=== PATIENT | male | born 1935 | race Caucasian/White ===

== ENCOUNTER → 2018-01-11 12:21 | Outpatient (CLI) | payer MEDICARE, SELFPAY ==
[2018-01-11 12:47] VITALS: PULSE 104; PULSE 72; PULSE 86; PULSE 87; PULSE 90; PULSE 93; PULSE 97; PULSE 98; O2SAT 90; O2SAT 91; O2SAT 92; O2SAT 93; O2SAT 94; O2SAT 95
--- NOTE | 2018-01-12 06:43 | WT_ITS ---
PSN 6 Minute Walk Test - 6 Minute Walk Test 6 Minute Walk Test: 6 Minute Walk Test PSN:6-Minute Walk Test Start: 01/11/18 12: 46 Freq: Status: Active Protocol: [id number] Document 01/11/18 12:47 HG (Rec: 01/11/18 12:57 HG [id number]) 6 Minute Walk Test Date Performed 01/11/18 Time Performed 12:30 Height 5 ft 10 in Weight: 90.718 kg Weight in Pounds 200.[address]: Eliu Britton Assistive device used: None Pre-test Oxygen Delivery Method Room Air Pulse Ox (%) 95 Pulse Rate (60-100 beats/min) 72 Dyspnea Sim Scale (0-10) 1 Exertion Sim Scale (6-20) 6 1st minute Oxygen Delivery Method Room Air Pulse Ox (%) 93 Pulse Rate (60-100 beats/min) 86 2nd minute Oxygen Delivery Method Room Air Pulse Ox (%) 90 Pulse Rate (60-100 beats/min) 90 3rd minute Oxygen Delivery Method Room Air Pulse Ox (%) 91 Pulse Rate (60-100 beats/min) 93 4th minute Oxygen Delivery Method Room Air Pulse Ox (%) 92 Pulse Rate (60-100 beats/min) 98 5th minute Oxygen Delivery Method Room Air Pulse Ox (%) 91 Pulse Rate (60-100 beats/min) 104 H 6th minute Oxygen Delivery Method Room Air Pulse Ox (%) 93 Pulse Rate (60-100 beats/min) 97 Post-test Oxygen Delivery Method Room Air Pulse Ox (%) 94 Pulse Rate (60-100 beats/min) 87 Dyspnea Sim Scale (0-10) 1 Exertion Sim Scale (6-20) 6 Full Laps Walked 17 Partial Lap, Number of Tiles Walked 16 Total Distance Walked (ft) 1019 - Interpretation Interpretation: The patient was able to ambulate 1019 feet over the course of 6 minutes on room air with no assistive devices or breaks. The patient did have significant desaturation from a baseline saturation of 95% to as low as 90% with ambulation. No significant tachycardia was noted. These findings are consistent with a respiratory limitation exercise tolerance. - Recommendations Recommendations: No supplemental oxygen is indicated at this time. However, patient should be followed closely given level of desaturation.
== END ==
PROVIDERS: Family Provider Family Medicine; PCP Family Medicine; Visit Provider Family Medicine
DX: R06.2 Wheezing (principal)
CPT/HCPCS: 94618

== ENCOUNTER → 2018-01-16 13:14 | Outpatient (CLI) | payer MEDICARE, SELFPAY ==
--- NOTE | 2018-01-17 11:09 | PFT ---
INTRODUCTION: The patient is an 82-year-old male currently under the care of Dr. Eliu Britton the presents for pulmonary function testing secondary to a diagnosis of wheezing. Respiratory therapy reports good patient effort reports no other concerns. Bronchodilators were used during testing. INTERPRETATION: Forced expiration spirometry demonstrates the presence of a mild large airways obstructive ventilatory impairment. There was no significant response to aerosolized bronchodilators, based upon strict ATS criteria. Spirograms are of good quality and do not plateau indicating slow emptying of the lungs. Body plethysmography was performed and reveals an elevated RV to 135% of predicted, indicative of underlying air trapping. Diffusing capacity by single breath CO is mildly reduced at 72% of predicted. IMPRESSION: These pulmonary function studies demonstrate the presence of an irreversible mild large airways obstructive ventilatory defect with associated air trapping and symmetric reduction in diffusing capacity. There are no previous pulmonary function studies available for comparison.
== END ==
PROVIDERS: Family Provider Family Medicine; PCP Family Medicine; Visit Provider Family Medicine
DX: R06.2 Wheezing (principal)
CPT/HCPCS: 94060; 94726; 94729

== ENCOUNTER → 2018-02-05 09:28 | Outpatient (CLI) | payer MEDICARE, SELFPAY ==
--- NOTE | 2018-02-05 09:33 | RAD_ITS ---
STUDY: X-RAY CHEST REASON FOR EXAM: Male, 82 years old. Left-sided rales. TECHNIQUE: PA and lateral views of the chest. COMPARISON: Comparison is made with prior examination dated July 15, 2017. FINDINGS: Stable increased linear markings at the left lung base suggestive of left basilar scarring. Blunting of the left costophrenic angle. Normal size heart. Normal mediastinum and izzy. Normal visualized pulmonary arteries. Normal visualized aortic arch and descending thoracic aorta. There is demineralization of the osseous structures. Almost complete loss of height of a lower dorsal vertebrae. Normal visualized ribs, clavicles, and shoulders. There is no demonstrated abnormality of the visualized soft tissue structures of the upper abdomen. RAD/Chest PA and Lateral IMPRESSION: Stable increased markings at the left lung base suggestive of left basilar scarring. Electronically Signed: Calvin Garcia MD at 14:48 EDT Tel [phone], Service support ,
[2018-02-05 12:32] LABS: International Normalized Ratio 2.7; Prothrombin Time (Protime)PT. 28.7 SECONDS (11.7-14.9)
== END ==
PROVIDERS: Family Provider Family Medicine; PCP Family Medicine; Visit Provider Family Medicine
DX: I82.409 Acute embolism and thrombosis of unspecified deep veins of unspecified lower extremity (principal); R09.89 Other specified symptoms and signs involving the circulatory and respiratory systems
CPT/HCPCS: 36415; 71046; 85610

== ENCOUNTER → 2018-04-06 08:36 | Outpatient (CLI) | payer MEDICARE, SELFPAY ==
--- NOTE | 2018-04-06 09:20 | RAD_ITS ---
STUDY: AIR-CONTRAST UPPER GI SERIES. REASON FOR EXAM: Male, 82 years old. Chronic left-sided abdominal pain. FLUOROSCOPY TIME (if supplied): (1:10) minutes/seconds TECHNIQUE: A geotechnical engineer film was obtained. The gas patterns aren't remarkable. Degenerative changes are seen throughout the spine. COMPARISON: None. FINDINGS: There is no evidence of esophageal obstruction. There is evidence of a small sliding hiatal hernia with gastroesophageal reflux. The stomach and duodenum are unremarkable. RAD/Upper GI/w Small Bowel IMPRESSION: Small sliding nail hernia with gastroesophageal reflux. Electronically Signed: Calvin Garcia MD at 8:02 EDT Tel [phone], Service support ,
== END ==
PROVIDERS: Family Provider Family Medicine; PCP Family Medicine; Visit Provider Family Medicine
DX: K44.9 Diaphragmatic hernia without obstruction or gangrene (principal); K21.9 Gastro-esophageal reflux disease without esophagitis
CPT/HCPCS: 74249

== ENCOUNTER → 2018-09-11 09:06 | Outpatient (CLI) | payer MEDICARE, SELFPAY | PROVIDERS: Family Provider Family Medicine; PCP Family Medicine; Referring Provider Nurse Practitioner Adult Health; Visit Provider Nurse Practitioner Adult Health | DX: R30.0 Dysuria (principal) | CPT/HCPCS: 36415; 87086 ==

== ENCOUNTER → 2018-12-21 12:27 | Outpatient (CLI) | payer MEDICARE, SELFPAY | PROVIDERS: Family Provider Family Medicine; PCP Family Medicine; Referring Provider Family Medicine; Visit Provider Family Medicine | DX: N30.90 Cystitis, unspecified without hematuria (principal) | CPT/HCPCS: 87086 ==

== ENCOUNTER → 2019-01-28 | Outpatient (CLI) | payer MEDICARE, SELFPAY | END | disposition home or self-care (01) | LOC: MFPLAB 09:40 | PROVIDERS: Family Provider Family Medicine; PCP Family Medicine; Visit Provider Family Medicine | DX: R30.0 Dysuria (principal) | CPT/HCPCS: 87086 ==

== ENCOUNTER → 2019-03-22 15:48 | Outpatient (CLI) | payer MEDICARE, SELFPAY | PROVIDERS: Family Provider Family Medicine; PCP Family Medicine; Referring Provider Family Medicine; Visit Provider Family Medicine | DX: R30.0 Dysuria (principal) | CPT/HCPCS: 87086 ==

== ENCOUNTER → 2019-09-09 10:19 | Outpatient (CLI) | payer MEDICARE, SELFPAY ==
[2019-09-09 12:47] LABS: Absolute Lymphocyte Count 1.67 X10^3/uL (0.83-4.51); Absolute Neutrophil Count 7.3 X10^3/uL (2.0-7.7); Basophil# 0.09 X10^3/uL; Basophil% 0.9 % (0-1); Eosinophils% 0.9 % (0-5); Hematocrit 33.8 % (40-54); Hemoglobin 10.9 g/dL (13.0-16.5); Lymphocyte # 1.67 X10^3/ul (4.0); Lymphocyte % 15.8 % (19-41); Mean Corp Hgb Conc 32.2 g/dL (32-36); Mean Corpuscular Volume 89.9 fL (80-94); Mean Platelet Vol. 9.6 fl (6.2-12.0); Monocyte# 1.35 X10^3/uL; Monocyte% 12.8 % (0-10); NRBC Flagged by Analyzer 0 % (0-5); Neutrophil # 7.29 X10^3/uL (2.7-7.7); Neutrophil % 68.9 % (47-70); Platelet Count 328 K/mm3 (150-450); RBC Distribution Width CV 13.1 % (11.6-14.6); RBC Distribution Width SD 43.2 fl (35.1-43.9); Red Blood Count 3.76 M/mm3 (4.6-6.2); White Blood Count 10.6 K/mm3 (4.4-11.0)
[2019-09-09 13:12] LABS: ALB/GLOB Ratio 0.7 RATIO (0.9-2.4); AST(SGOT) 30 U/L (15-37); Alanine Aminotransfer ALT/SGPT 31 U/L (16-61); Albumin, Serum 3.2 g/dL (3.2-5.0); Alkaline Phosphatase 59 U/L (45-117); Anion Gap 10 (5-15); BUN 21 mg/dL (7-18); BUN/Creat Ratio 13.9 RATIO (10-20); Calcium,Total 9.4 mg/dL (8.5-10.1); Chloride 101 mmol/L (98-107); Creatinine, Serum 1.51 mg/dL (0.70-1.30); EST Glomerular Filtration Rate 47 mL/min (>60); Est Glom Filt Rate - Afr Amer 57 mL/min (>60); Ferritin 735 ng/mL (26-388); Globulin 4.9 g/dL (2.2-4.2); Glucose 100 mg/dL (74-106); Iron 61 ug/dL (65-175); Magnesium 1.8 mg/dL (1.6-2.6); Potassium 4.2 mmol/L (3.5-5.1); Protein, Total 8.1 g/dL (6.4-8.2); Sodium Level 133 mmol/L (136-145); Thyroid Stim Hormone (TSH) 4.01 uIU/mL (0.358-3.74)
== END ==
PROVIDERS: Family Provider Family Medicine; PCP Family Medicine; Visit Provider Family Medicine
DX: I10 Essential (primary) hypertension (principal); Z86.711 Personal history of pulmonary embolism
CPT/HCPCS: 36415; 80053; 82728; 83540; 83735; 84443; 85025

== ENCOUNTER → 2019-09-21 08:52 | Outpatient (CLI) | payer MEDICARE, SELFPAY ==
--- NOTE | 2019-09-21 09:09 | US_ITS ---
STUDY: ABDOMINAL ULTRASOUND - RIGHT UPPER QUADRANT REASON FOR VISIT: Male, 83 years old elevated ferritin. TECHNIQUE: Ultrasound evaluation of the right upper quadrant was performed with real-time and static phipps-scale imaging. TECHNICAL QUALITY: Limited. Examination limited by bowel gas. COMPARISON: None. FINDINGS: Liver: The liver measures 14.7 cm. There is normal echogenicity of the liver. The bile ducts are within normal limits. There is hepatic color flow. The direction of portal flow is hepatopetal. There is no demonstrated mass lesion. Gallbladder: Normal distended gallbladder. The gallbladder wall measures 2.0 mm. There is a negative sonographic Solorzano's sign. There is no pericholecystic fluid. There are no gallstones. Common Bile Duct (C.B.D.): The common bile duct measures 4.0 mm. Pancreas: There is suboptimal visualization of the pancreas. A round anechoic structure seen at the level of the pancreatic head measuring 1.3 x 0.9 x 1.1 cm, stable when compared to previous exam 07/21/2017 CT and t2o. Right Kidney: Normal size of the right kidney. The right kidney measures 10.3 x 4.5 x 5.3 cm. Normal renal cortex. The right cortex measures 1.1 cm. At the level of the There is no right hydronephrosis. US/Abdomen Limited IMPRESSION: No gallstones or signs of acute cholecystitis. Suboptimally seen pancreas, with a small cyst measuring 1.3 cm at the level of the head, stable in the interval. Remainder of the right upper quadrant ultrasound unremarkable. Electronically Signed: Sunita Hancock MD at 4:35 EST , Service support ,
== END ==
PROVIDERS: Family Provider Family Medicine; PCP Family Medicine; Referring Provider Family Medicine; Visit Provider Family Medicine
DX: R79.89 Other specified abnormal findings of blood chemistry (principal)
CPT/HCPCS: 76705

== ENCOUNTER → 2019-09-27 12:27 | Outpatient (CLI) | payer MEDICARE, SELFPAY ==
[2019-09-27 13:50] LABS: Hematocrit 33.7 % (40-54); Hemoglobin 11.1 g/dL (13.0-16.5); Mean Corp Hgb Conc 32.9 g/dL (32-36); Mean Corpuscular Hgb 29.2 pg (27.0-32.0); Mean Corpuscular Volume 88.7 fL (80-94); Mean Platelet Vol. 9.4 fl (6.2-12.0); Platelet Count 351 K/mm3 (150-450); RBC Distribution Width CV 13.3 % (11.6-14.6); RBC Distribution Width SD 43.2 fl (35.1-43.9); White Blood Count 13.3 K/mm3 (4.4-11.0)
[2019-09-27 14:00] LABS: Erythrocyte Sedimentation Rate 104 mm/hr (0-20)
[2019-09-27 14:38] LABS: ALB/GLOB Ratio 0.7 RATIO (0.9-2.4); AST(SGOT) 33 U/L (15-37); Alanine Aminotransfer ALT/SGPT 37 U/L (16-61); Albumin, Serum 3.2 g/dL (3.2-5.0); Alkaline Phosphatase 58 U/L (45-117); Anion Gap 6 (5-15); BUN 19 mg/dL (7-18); BUN/Creat Ratio 12.6 RATIO (10-20); Calcium,Total 9.4 mg/dL (8.5-10.1); Chloride 100 mmol/L (98-107); Creatinine, Serum 1.51 mg/dL (0.70-1.30); EST Glomerular Filtration Rate 47 mL/min (>60); Est Glom Filt Rate - Afr Amer 57 mL/min (>60); Globulin 4.9 g/dL (2.2-4.2); Glucose 185 mg/dL (74-106); Potassium 3.8 mmol/L (3.5-5.1); Protein, Total 8.1 g/dL (6.4-8.2); Sodium Level 134 mmol/L (136-145); Thyroid Stim Hormone (TSH) 2.42 uIU/mL (0.358-3.74)
[2019-09-30 17:43] LABS: ANTINUCLEAR ANTIBODIES DIRECT Positive (Negative)
== END ==
PROVIDERS: Family Provider Family Medicine; PCP Family Medicine; Referring Provider Family Medicine; Visit Provider Family Medicine
DX: I82.409 Acute embolism and thrombosis of unspecified deep veins of unspecified lower extremity (principal); R60.9 Edema, unspecified; M62.81 Muscle weakness (generalized)
CPT/HCPCS: 36415; 80053; 84443; 85027; 85652; 86038; 86140

== ENCOUNTER → 2019-09-30 11:17 | Outpatient (CLI) | payer MEDICARE, SELFPAY ==
[2019-09-30 12:23] LABS: Erythrocyte Sedimentation Rate 90 mm/hr (0-20)
[2019-09-30 13:03] LABS: CRP, High Sensitivity Cardiac 9.44 mg/L
== END ==
PROVIDERS: Family Provider Family Medicine; PCP Family Medicine; Referring Provider Family Medicine; Visit Provider Family Medicine
DX: M62.81 Muscle weakness (generalized) (principal)
CPT/HCPCS: 36415; 85652; 86141

== ENCOUNTER 2019-10-10 20:43 | Inpatient (IN) | payer MEDICARE, SELFPAY ==
[2019-10-10 20:45] VITALS: BP 163/64; PULSE 73; RESP 18; TEMP 36.7; O2SAT 98; BMI 29.2
--- NOTE | 2019-10-10 21:31 | CT_ITS ---
STUDY: CT ABDOMEN AND PELVIS WITHOUT CONTRAST REASON FOR EXAM: Male, 83 years old. Abdominal pain RADIATION DOSAGE (If Supplied By Facility): CTDIvol = ( 18.20 ) mGy, DLP = ( 1206.33 ) mGycm TECHNIQUE: Transaxial images were obtained from the dome of the diaphragm to the symphysis pubis without oral contrast, and without intravenous contrast. Sagittal and coronal images were reconstructed. Individualized dose optimization techniques were used for this CT. COMPARISON: None. FINDINGS: The visualized lung bases are unremarkable. The visualized portions of the heart are within normal limits. Normal liver. Normal gallbladder and extrahepatic biliary system. Normal spleen. Relatively stable 1.6 cm probable cystic nodule at the head of the pancreas and an 8 mm cystic nodule posterior to the pancreatic body. Normal bilateral adrenal glands. Normal right kidney. 1 cm cyst in the left kidney. Normal visualized stomach. Mildly distended proximal small intestinal loops with air-fluid levels. An obstructive pattern cannot be excluded. Diverticulosis of the colon. The appendix is visualized and appears normal. Calcified abdominal aorta. Normal inferior vena cava. Normal retroperitoneum. Normal urinary bladder. 1.6 cm nodular density at the right inguinal canal, similar to previous study. Trace pelvic fluid. Normal abdominal wall. Degenerative vertebral changes. Severe old compression of T8 vertebral body. 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 CT/Abdomen/Pelvis W IV Cont ONLY IMPRESSION: Stable pancreatic cystic nodules. Left renal cyst. Colonic diverticulosis. Mildly distended proximal small bowel loops with air-fluid levels. An obstructive pattern cannot be excluded. Trace pelvic fluid. Electronically Signed: Nikko Askew DO at 23:41 EST Tel [phone], Service support ,
--- NOTE | 2019-10-10 21:31 | EKG12_ITS ---
Test Reason : ABD PAIN Blood Pressure : / mmHG Vent. Rate : 074 BPM Atrial Rate : 074 BPM P-R Int : 176 ms QRS Dur : 088 ms QT Int : 382 ms P-R-T Axes : 025 -21 042 degrees QTc Int : 424 ms Sinus rhythm with Premature atrial complexes Minimal voltage criteria for LVH, may be normal variant Borderline ECG Confirmed by KAMILLE ELLIS, TANK ([id number]), assistant film editor MIKEY SANCHEZ ([id number]) on 10/14/2019 11:35:35 AM Referred By: JAMI Confirmed By:TANK SIMENTAL MD
--- NOTE | 2019-10-10 21:42 | ED.DCSUM_ITS ---
- ER Visit Summary Date of Service: 10/10/19 Chief Complaint: Abdominal pain History of Present Illness: The patient is a 83 M presenting with abdominal pain. This started around 7 PM. Patient complains of upper abdominal pain. He denies nausea, vomiting, diarrhea. Denies constipation. Denies blood in the stool. Denies fever. Denies urinary complaints. He states he ate [employer] this afternoon and is unsure if this is related. Physical Examination: Vitals are stable. Patient is afebrile. Alert no acute distress. HEENT exam is unremarkable. Neck is supple. Lungs are clear and equal bilaterally. Heart is regular rate and rhythm. Abdomen is soft right upper quadrant and epigastric tenderness with no guarding or rebound Extremities are unremarkable. Skin is warm and dry. No focal neurologic deficit. Remainder of exam is unremarkable. Emergency Department Course and Treatment: Patient was given morphine, Zofran IV. CBC shows white count 19.3, hemoglobin 11.1. Chemistries show sodium 135, glucose 124, BUN 22. Liver lipase are normal. INR 1.9. Urinalysis shows 0 white blood cells, 5-10 red blood cells. EKG is sinus rhythm rate of 74 with no acute ischemic changes. CT abdomen pelvis shows stable pancreatic cystic nodul es. Left renal cyst. Colonic diverticulosis. Mildly distended proximal small bowel loops with air-fluid levels. An obstructive pattern cannot be excluded. Trace pelvic fluid. Discussed with Dr. Seaman. She recommends 1 unit of FFP and NG tube. This will be placed. Discussed with the hospitalist for admission. Disposition: Admission Impression: Small bowel obstruction This note was generated with [employer] publishing dictation software. It may contain incorrect words, spelling, and punctuation that were not noted in review of the chart prior to signing ED Disposition - Plan for ED Patient:
[2019-10-10] MEDS: Morphine 4 MG/ML Syringe IV (22:21)
[2019-10-10] MEDS: Ondansetron 4 MG/2 ML Vial IV (22:21)
[2019-10-10 22:34] LABS: Absolute Lymphocyte Count 1.23 X10^3/uL (0.83-4.51); Absolute Neutrophil Count 15.8 X10^3/uL (2.0-7.7); Basophil# 0.04 X10^3/uL; Basophil% 0.2 % (0-1); Eosinophil# 0.01 X10^3/uL; Eosinophils% 0.1 % (0-5); Hematocrit 33.6 % (40-54); Hemoglobin 11.1 g/dL (13.0-16.5); Lymphocyte # 1.23 X10^3/ul (4.0); Lymphocyte % 6.4 % (19-41); Mean Corpuscular Hgb 28.8 pg (27.0-32.0); Mean Corpuscular Volume 87.3 fL (80-94); Mean Platelet Vol. 9.7 fl (6.2-12.0); Monocyte# 2.03 X10^3/uL; Monocyte% 10.5 % (0-10); NRBC Flagged by Analyzer 0 % (0-5); POSITIVE DIFFERENTIAL YES; Platelet Count 259 K/mm3 (150-450); RBC Distribution Width CV 14.7 % (11.6-14.6); RBC Distribution Width SD 46.8 fl (35.1-43.9); Red Blood Count 3.85 M/mm3 (4.6-6.2); White Blood Count 19.3 K/mm3 (4.4-11.0)
[2019-10-10 22:42] LABS: International Normalized Ratio 1.8; Prothrombin Time (Protime)PT. 21.2 SECONDS (11.7-14.9)
[2019-10-10 22:47] LABS: Differential Indicated SCAN CRITERIA MET
[2019-10-10 22:54] VITALS: BP 146/69; PULSE 76; RESP 18; O2SAT 100
[2019-10-10 22:55] LABS: ALB/GLOB Ratio 0.8 RATIO (0.9-2.4); AST(SGOT) 34 U/L (15-37); Alanine Aminotransfer ALT/SGPT 38 U/L (16-61); Albumin, Serum 3.4 g/dL (3.2-5.0); Alkaline Phosphatase 49 U/L (45-117); Anion Gap 8 (5-15); Anisocytosis RARE; BUN 22 mg/dL (7-18); BUN/Creat Ratio 17.5 RATIO (10-20); Calcium,Total 8.8 mg/dL (8.5-10.1); Chloride 98 mmol/L (98-107); Creatinine, Serum 1.26 mg/dL (0.70-1.30); EST Glomerular Filtration Rate 58 mL/min (>60); Est Glom Filt Rate - Afr Amer 71 mL/min (>60); Estimated Creatinine Clearance 47.48 ml/min; Globulin 4.1 g/dL (2.2-4.2); Glucose 124 mg/dL (74-106); Lactic Acid 1.5 mmol/L (0.4-1.9); Lipase 189 U/L (73-393); Platelet Estimate ADEQUATE (ADEQ); Potassium 4.5 mmol/L (3.5-5.1); Protein, Total 7.5 g/dL (6.4-8.2); Red Cell Morphology N CHROM NORMAL (NORM C&C); Sodium Level 135 mmol/L (136-145)
[2019-10-10 23:54] LABS: Bacteria 0 SEEN /hpf (None Seen); Mucous, Urine 0 SEEN /hpf (<or=2+); Squamous Epithelial Cells - UA 0 SEEN /hpf (0-5); White Blood Cells 0 SEEN /hpf (0-5)
[2019-10-10 23:55] LABS: Color, Urine Yellow (Yellow); Glucose, Dipstick Normal (Normal); Ketone-Dipstick Negative (Negative); Leukocyte Esterase-Dipstick Negative /ul (Negative); Nitrite-Dipstick Negative (Negative); Occult Blood-Urine 25 /ul (Negative); Protein-Dipstick Negative (Negative); Urine Bilirubin Dipstick Negative (Negative); Urine Clarity Clear (Clear); Urine Urobilinogen Normal (Normal)
[2019-10-11] VITALS (17 sets, daily range): BP systolic 135–168; BP diastolic 56–81; PULSE 71–87; RESP 16–18; TEMP 36.6–37.2; O2SAT 92–98; BMI 27.8
[2019-10-11 00:07] LABS: Red Blood Cells-Urine 5-10 SEEN /hpf (0-5)
--- NOTE | 2019-10-11 00:44 | RAD_ITS ---
STUDY: X-RAY - ABDOMEN/PELVIS REASON FOR EXAM: Male, 83 years old. Documentation of nasogastric tube placement. TECHNIQUE: Single AP view of the abdomen / pelvis. COMPARISON: CT of the abdomen and pelvis dated October 10, 2019. FINDINGS: There are bilateral pleural effusions. There is bilateral basilar dependent atelectasis. The enteric tube tip is in the left upper quadrant probably in the stomach. There is dilated small bowel with maximum transverse dimension of approximately 3.4 cm. There is no demonstrated free abdominal air. There is no obvious organomegaly or mass. Normal soft tissue structures. The bones appear osteopenic. RAD/Abdomen Single View (Portable) IMPRESSION: 1. Appropriate positioning of enteric tube. 2. Persistent dilatation of small bowel. Electronically Signed: Haylee Remy MD at 3:00 EST , Service support ,
--- NOTE | 2019-10-11 00:46 | HP.PCM_ITS ---
Problem List (1) SBO (small bowel obstruction) Status: Acute History of Present Illness Date of Admission: 10/11/19 Chief Complaint: abdominal pain The patient is a 83 year old M with a significant history of CAD status post stent (2007); DVT and PE; and hypertension who presented to emergency department with abdominal pain that started few hours before presentation. On the day of presentation at around 2PM patient ate food from [facility]. About 4 to 5 hours thereafter he began to have worsening abdominal pain. His pain has been progressively worsening. He describes his pain as sharp with intensity 10 out of 10. His pain improves with burping. He denies any aggravating factor. Associated with his symptoms is nausea and dry heaving. His bowels moved about 2 times prior to presentation; on the same day of presentation. Past Medical History Medical History: Medical History (Last Updated 10/11/19 @ 03:31 by Jose Temple MD) Hypertension I10 Allergies naproxen [From Naprosyn] Allergy (Verified 10/10/19 20:46) Other Home Medications: Ambulatory Orders Medication Instructions Recorded Amlodipine Besylate [Norvasc] 10 mg PO DAILY 07/15/17 Ascorbic Acid [Vitamin C] 1,000 mg PO DAILY 07/15/17 Cholecalciferol (Vitamin D3) 1,000 unit PO DAILY 07/15/17 [Vitamin D3] Fish Oil 1,000 mg Capsule 1,000 mg PO DAILY 07/15/17 Flaxseed Oil 1,000 mg PO DAILY 07/15/17 Furosemide [Lasix] 20 mg PO DAILY 07/15/17 Garlic 1,000 mg PO DAILY 07/15/17 Lovastatin [Mevacor] 40 mg PO QHS 07/15/17 Metoprolol Tartrate 25 mg PO BID 07/15/17 Spironolactone 25 mg PO DAILY 07/15/17 Tamsulosin HCl [Flomax] 0.4 mg PO DAILY 07/15/17 Vit B12/Levomefolate/Vit B6/B2 1 each PO DAILY 07/15/17 [l-Methyl-Mc Tablet] Warfarin [Coumadin ([facility])] 3 mg PO MOWEFR 07/15/17 Prednisone 10 mg PO DAILY 10/10/19 Rosuvastatin Calcium 5 mg PO DAILY 10/10/19 Warfarin Sodium [Coumadin] 2 mg PO SUTUTHSA 10/11/19 Surgical History: herniorrhaphy, - - Coronary stent Lives: Alone Smoking Status: Former smoker Tobacco Use: Non-smoker Alcohol: None Review of Systems Constitutional: Denies: Chills, Fever, Weight Change HEENT: Denies: Head Aches, Sinus Congestion, Sinus Drainage Cardiovascular: Denies: Chest Pain, Palpitations Respiratory: Denies: Cough, Shortness of breath at rest, Sputum production Gastrointestinal: Reports: Abdominal Pain, Nausea. Denies: Vomiting Genitourinary: Denies: Dysuria Musculoskeletal: Denies: Joint Pain, Joint Tenderness Skin: Denies: Rash, Wounds Neurological: Denies: Numbness, Tingling, Focal weakness Psychiatric: Denies: Anxiety, Depression, Homicidal Ideations, Suicidal Ideations Hematologic/ Lymphatic: Denies: Easy Bruising, Easy Bleeding VTE Information - Inpt Only VTE Present on Admission: No VTE Mechan Device Prophylaxis: SCD's VTE Pharm Prophylaxis ordered?: No Patient Problems: Active and Suspected Problems (Last Updated 10/11/19 @ 03:31 by Jose Temple MD) SBO (small bowel obstruction) (Acute) - Physical Exam Vitals/I&O's: Vital Signs Temp Pulse Resp BP Pulse Ox 98.1 F 87 16 141/66 H 92 10/10/19 20:45 10/11/19 00:10 10/11/19 00:10 10/11/19 00:10 10/11/19 00:10 Oxygen Flow Rate (L/min) 2 Oxygen Delivery Method Room Air Weight: 92.3 kg Body Mass Index (BMI) 29.2 Intake and Output for Last 24 Hours 10/09/19 10/10/19 10/11/19 23:59 23:59 23:59 Intake Total 500 / 500 Balance 500 / 500 General: Alert, Oriented x3, Cooperative HEENT: Atraumatic, PERRLA, EOMI, Normocephalic Neck: Supple, No JVD, Negative Carotid Bruits Lungs: Clear to auscultation, Normal air movement Cardiovascular: Regular rate, No murmurs Abdomen: Bowel Sounds Present, Soft, Tender - Mild Extremities: No edema, Capillary Refill Less than 3 Seconds Skin: No rashes, No breakdown Musculoskeletal: No Tenderness to Palpation of Joints or Extremities Neurological: Cranial nerves II-XII grossly intact Psych/Mental Status: Normal Affect, Appropriate Laboratory Results 10/10/19 22:15: WBC 19.3 H, RBC 3.85 L, Hgb 11.1 L, Hct 33.6 L, MCV 87.3, MCH 28.8, MCHC 33.0, RDW Std Deviation 46.8 H, RDW Coeff of Ryanne 14.7 H, Plt Count 259, MPV 9.7, Immature Gran % (Auto) 0.800, Neut % (Auto) 82.0 H, Lymph % (Auto) 6.4 L, Will[place] % (Auto) 10.5 H, Eos % (Auto) 0.1, Baso % (Auto) 0.2, Absolute Neuts (auto) 15.8 H, Absolute Lymphs (auto) 1.23, Nucleated RBC % 0, Differential Comment SEE COMMENT, Diff Path Review February, Platelet Estimate ADEQUATE, RBC Morphology N CHROM, Anisocytosis RARE 10/10/19 22:15: PT 21.2 H, INR 1.8 10/10/19 22:15: Sodium 135 L, Potassium 4.5, Chloride 98, Carbon Dioxide 29.0, Anion Gap 8, BUN 22 H, Creatinine 1.26, Estim Creat Clear Calc 47.48, Est GFR (MDRD) Af Amer 71, Est GFR (MDRD) Non-Af 58 L, BUN/Creatinine Ratio 17.5, Glucose 124 H, Calcium 8.8, Total Bilirubin 0.40, AST 34, ALT 38, Alkaline Phosphatase 49, Troponin I < 0.015, Total Protein 7.5, Albumin 3.4, Globulin 4.1, Albumin/Globulin Ratio 0.8 L, Lipase 189 10/10/19 22:15: Lactic Acid 1.5 10/10/19 23:50: Urine Color Yellow, Urine Clarity Clear, Urine pH 7.0, Ur Specific Emery 1.010, Urine Protein Negative, Urine Glucose (UA) Normal, Urine Ketones Negative, Urine Occult Blood 25 H, Urine Nitrite Negative, Urine Bilirubin Negative, Urine Urobilinogen Normal, Ur Leukocyte Esterase Negative, Urine RBC 5-10 SEEN, Urine WBC 0 SEEN, Ur Squamous Epith Cells 0 SEEN, Urine Bacteria 0 SEEN, Urine Mucus 0 SEEN Assessment/Plan All Active Problems (Last Updated 10/11/19 @ 03:31 by Jose Temple MD) SBO (small bowel obstruction) (Acute) The patient is a 83 year old M with a significant history of CAD status post stent (2007); DVT and PE; and hypertension who presented to emergency department with abdominal pain with radiographic evidence of probable small bowel obstruction. Probable small bowel obstruction Abdomen pelvis CT with mild distended proximal small bowel loops with air-fluid levels. An obstructive pattern could not be excluded. Emergency Department doctor discussed the case with general surgeon. Because INR was 1.8; General Surgeon recommended the patient be given FFP which was ordered from the emergency department. Will keep patient n.p.o. Gentle IV fluid with lactated Ringer's. NG was ordered per general surgery recommendation. We will consult general surgery inpatient. Repeat INR in a.m. HTN On presentation his blood pressure was not within goal. Will hold home p.o. 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 Coumadin held secondary to probable surgery. FFP ordered from the ED. Resume anticoagulation as soon as practicable. 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 All p.o. medications held at this time. Consider resuming prednisone when appropriate. Leukocytosis On presentation patient had neutrophilic leukocytosis with white count of 19.3. Likely due to steroids. Trend CBC. Insomnia Patient takes Ambien 5 mg nightly to sleep. In setting of n.p.o. status with probable small bowel obstruction ativan IV x1 was ordered. DVT prophylaxis SCD Code Visit Inpatient E&M: 68880 Init Hosp L3
[2019-10-11] MEDS: Lidocaine 4% 5 ML Ampul 2 ML INHALATION (01:16)
[2019-10-11] MEDS: LORazepam 2 MG/ML Syringe IV (03:39)
[2019-10-11] MEDS: Enalaprilat 1.25 MG/ML Vial 0.625 MG IV ×2 (05:28→11:25)
[2019-10-11] MEDS: Lactated Ringers 1,000 ML 50 ML IV (05:28)
[2019-10-11 06:58] LABS: Absolute Lymphocyte Count 1.03 X10^3/uL (0.83-4.51); Absolute Neutrophil Count 10.9 X10^3/uL (2.0-7.7); Basophil# 0.04 X10^3/uL; Basophil% 0.3 % (0-1); Eosinophil# 0.07 X10^3/uL; Eosinophils% 0.5 % (0-5); Hematocrit 29.8 % (40-54); Hemoglobin 9.8 g/dL (13.0-16.5); Lymphocyte # 1.03 X10^3/ul (4.0); Lymphocyte % 7.5 % (19-41); Mean Corp Hgb Conc 32.9 g/dL (32-36); Mean Corpuscular Hgb 29.4 pg (27.0-32.0); Mean Corpuscular Volume 89.5 fL (80-94); Mean Platelet Vol. 9.3 fl (6.2-12.0); Monocyte# 1.65 X10^3/uL; NRBC Flagged by Analyzer 0 % (0-5); Neutrophil # 10.86 X10^3/uL (2.7-7.7); POSITIVE DIFFERENTIAL YES; Platelet Count 212 K/mm3 (150-450); RBC Distribution Width CV 14.9 % (11.6-14.6); RBC Distribution Width SD 47.8 fl (35.1-43.9); Red Blood Count 3.33 M/mm3 (4.6-6.2); White Blood Count 13.8 K/mm3 (4.4-11.0)
--- NOTE | 2019-10-11 07:00 | PCM.CONS.GEN ---
Reason for Consult Date of Consultation: 10/11/19 History of Present Illness: The patient is a 83 year old M presented to the ER due to abdominal pain. Patient states that he had [employer] about 2 PM and by 7 PM had had diffuse abdominal pain and abdominal bloating. Patient states he did have some nausea with that and dry heaves. Patient had 2 bowel movements around 7 PM as well which were normal and flatus earlier in the day. Currently denies any flatus. 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 Patient's CT abdomen pelvis showed a possible small bowel obstruction. Patient had NG placed unsure how much she was put out in the ER minimal however 9 about 50 cc. Patient states is abdomen is smaller and denies any abdominal pain. Patient states he had something like this about 10 years ago and did have to go the hospital did not have to have an NG or surgery. Patient states he had a colonoscopy about 3 years ago which was negative by Dr. Ragsdale in [place]. Patient's white blood count was 19, normal lactate, UA negative. He just started prednisone 10 mg p.o. daily for pain in his bones/joints per PCP 2 weeks ago Past Medical History Medical History: Medical History (Last Updated 10/11/19 @ 03:31 by Jose Temple MD) Hypertension I10 Allergies naproxen [From Naprosyn] Allergy (Verified 10/10/19 20:46) Other Home Medications: Ambulatory Orders Medication Instructions Recorded Amlodipine Besylate [Norvasc] 10 mg PO DAILY 07/15/17 Ascorbic Acid [Vitamin C] 1,000 mg PO DAILY 07/15/17 Cholecalciferol (Vitamin D3) 1,000 unit PO DAILY 07/15/17 [Vitamin D3] Fish Oil 1,000 mg Capsule 1,000 mg PO DAILY 07/15/17 Flaxseed Oil 1,000 mg PO DAILY 07/15/17 Furosemide [Lasix] 20 mg PO DAILY 07/15/17 Garlic 1,000 mg PO DAILY 07/15/17 Lovastatin [Mevacor] 40 mg PO QHS 07/15/17 Metoprolol Tartrate 25 mg PO BID 07/15/17 Spironolactone 25 mg PO DAILY 07/15/17 Tamsulosin HCl [Flomax] 0.4 mg PO DAILY 07/15/17 Vit B12/Levomefolate/Vit B6/B2 1 each PO DAILY 07/15/17 [l-Methyl-Mc Tablet] Warfarin [Coumadin (PBKC)] 3 mg PO MOWEFR 07/15/17 Prednisone 10 mg PO DAILY 10/10/19 Rosuvastatin Calcium 5 mg PO DAILY 10/10/19 Warfarin Sodium [Coumadin] 2 mg PO SUTUTHSA 10/11/19 Surgical History: herniorrhaphy, - - Coronary stent Lives: Alone Smoking Status: Former smoker Tobacco Use: Non-smoker Alcohol: None - *Family History Maternal History Items: No pertinent history Review of Systems Constitutional: Reports: Anorexia HEENT: Denies: Difficulty Swallowing Cardiovascular: Denies: Chest Pain Respiratory: Denies: Shortness of Breath Gastrointestinal: Denies: Abdominal Pain, Nausea, Vomiting Genitourinary: Denies: Dysuria Neurological: Denies: Numbness, Tingling Psychiatric: Denies: Anxiety, Depression Hematologic/ Lymphatic: Reports: Easy Bruising. Denies: Easy Bleeding Patient Problems: Active and Suspected Problems (Last Updated 10/11/19 @ 03:31 by Jose Temple MD) SBO (small bowel obstruction) (Acute) - Physical Exam Vitals/I&O's: Vital Signs Temp Pulse Resp BP Pulse Ox 98.2 F 73 16 159/63 H 94 10/11/19 05:31 10/11/19 06:04 10/11/19 05:31 10/11/19 05:31 10/11/19 05:31 Oxygen Flow Rate (L/min) 2 Oxygen Delivery Method Nasal Cannula Weight: 193 lb 12.581 oz Body Mass Index (BMI) 27.8 Intake and Output for Last 24 Hours 10/09/19 10/10/19 10/11/19 23:59 23:59 23:59 Intake Total 500 / 500 200 / 200 Balance 500 / 500 200 / 200 General: Alert, Oriented x3, Cooperative, No apparent distress HEENT: Atraumatic, - - NG in place Lungs: Normal air movement Cardiovascular: Regular rate Abdomen: Soft, Distended - Mild, Tender - Mild epigastric, no peritoneal signs Extremities: Edema - Greater on the right Neurological: Cranial nerves II-XII grossly intact Psych/Mental Status: Normal Affect Laboratory Results 10/10/19 22:15: WBC 19.3 H, RBC 3.85 L, Hgb 11.1 L, Hct 33.6 L, MCV 87.3, MCH 28.8, MCHC 33.0, RDW Std Deviation 46.8 H, RDW Coeff of Ryanne 14.7 H, Plt Count 259, MPV 9.7, Immature Gran % (Auto) 0.800, Neut % (Auto) 82.0 H, Lymph % (Auto) 6.4 L, [place] % (Auto) 10.5 H, Eos % (Auto) 0.1, Baso % (Auto) 0.2, Absolute Neuts (auto) 15.8 H, Absolute Lymphs (auto) 1.23, Nucleated RBC % 0, Differential Comment SEE COMMENT, Diff Path Review February, Platelet Estimate ADEQUATE, RBC Morphology N CHROM, Anisocytosis RARE 10/10/19 22:15: PT 21.2 H, INR 1.8 10/10/19 22:15: Sodium 135 L, Potassium 4.5, Chloride 98, Carbon Dioxide 29.0, Anion Gap 8, BUN 22 H, Creatinine 1.26, Estim Creat Clear Calc 47.48, Est GFR (MDRD) Af Amer 71, Est GFR (MDRD) Non-Af 58 L, BUN/Creatinine Ratio 17.5, Glucose 124 H, Calcium 8.8, Total Bilirubin 0.40, AST 34, ALT 38, Alkaline Phosphatase 49, Troponin I < 0.015, Total Protein 7.5, Albumin 3.4, Globulin 4.1, Albumin/Globulin Ratio 0.8 L, Lipase 189 10/10/19 22:15: Lactic Acid 1.5 10/10/19 23:50: Urine Color Yellow, Urine Clarity Clear, Urine pH 7.0, Ur Specific [place] 1.010, Urine Protein Negative, Urine Glucose (UA) Normal, Urine Ketones Negative, Urine Occult Blood 25 H, Urine Nitrite Negative, Urine Bilirubin Negative, Urine Urobilinogen Normal, Ur Leukocyte Esterase Negative, Urine RBC 5-10 SEEN, Urine WBC 0 SEEN, Ur Squamous Epith Cells 0 SEEN, Urine Bacteria 0 SEEN, Urine Mucus 0 SEEN 10/11/19 01:10: Blood Type A POSITIVE, Antibody Screen NEGATIVE 10/11/19 06:38: WBC Pending, RBC Pending, Hgb Pending, Hct Pending, MCV Pending, MCH Pending, MCHC Pending, RDW Std Deviation Pending, RDW Coeff of Ryanne Pending, Plt Count Pending, Neut % (Auto) Pending, Absolute Neuts (auto) Pending 10/11/19 06:38: PT Pending, INR Pending 10/11/19 06:38: Sodium Pending, Potassium Pending, Chloride Pending, Carbon Dioxide Pending, Anion Gap Pending, BUN Pending, Creatinine Pending, Est GFR (MDRD) Af Amer Pending, Est GFR (MDRD) Non-Af Pending, BUN/Creatinine Ratio Pending, Glucose Pending, Calcium Pending Current Medications Enalaprilat (Vasotec) 0.625 mg IV Q6 AZAM Last Admin: 10/11/19 05:28 Dose: 0.625 mg Documented by: Glucagon () 1 mg IM .X1 PRN PRN Reason: Hypoglycemia Lactated Ringer's () 1,000 mls @ 50 mls/hr IV .Q20H AZAM Stop: 10/12/19 18:06 Last Admin: 10/11/19 05:28 Dose: 50 mls/hr Documented by: Sodium Chloride () 250 mls @ 15 mls/hr IV .[id number] PRN PRN Reason: Saline Flush Sodium Chloride () 250 mls @ 15 mls/hr IV .[id number] PRN PRN Reason: Additional IVPB Infusion Dextrose (Dextrose 10%-Water) 250 mls @ 999 mls/hr IV .Q16M PRN; Protocol PRN Reason: HYPOGLYCEMIA Morphine Sulfate () 2 mg IV Q3H PRN PRN PRN Reason: Pain Score 5-10/10 Ondansetron HCl (Zofran) 4 mg IV Q8H PRN PRN PRN Reason: NAUSEA/VOMITING Sodium Chloride () 10 - 40 ml IV UD PRN PRN Reason: SALINE FLUSH Assessment/Plan All Active Problems (Last Updated 10/11/19 @ 03:31 by Jose Temple MD) SBO (small bowel obstruction) (Acute) 83-year-old male with possible small bowel obstruction, on Coumadin INR is 1.8 1. Patient's KUB for placement of NG did show a little more gas in the colon than previously seen on CT. Currently on about 50 cc in the canister overnight unsure how much was gotten out in the ER. Patient states abdomen has gone down in size but denies any flatus still. We will check an additional KUB this morning and likely do a small bowel follow-through. 2. Leukocytosis patient a white blood cell count of 19 on admit unsure source as patient's abdominal pain was improved, UA was normal. Patient has been on prednisone 10 mg p.o. daily for last couple weeks due to pain in his joints/bones per his PCP.-Per patient's daughter. Labs currently pending?white blood cell count down to 13 without any antibiotics we will continue to monitor. Patient's INR is 1.8 and was given 1 unit of FFP case he would need surgery, 1.7 Waleska Ambrocio M.D. Pager: [phone] [facility] [address] [place] [address], [facility], [address] [place] [address] Office: [phone] Code Visit Inpatient E&M: 95662 Init Hosp L1
--- NOTE | 2019-10-11 07:02 | RAD_ITS ---
STUDY: X-RAY - ABDOMEN/PELVIS REASON FOR EXAM: Male, 83 years old patient with small bowel obstruction. TECHNIQUE: Two AP supine views of the abdomen and pelvis. COMPARISON: CT of the abdomen and pelvis dated October 10, 2019. FINDINGS: Cardiac monitoring leads are present. Multiple surgical clips are visible within the soft tissues of the right lower quadrant. There is dilated small bowel with maximum transverse dimension of approximately 4.4 cm. There is no demonstrated free abdominal air. There is no obvious organomegaly, mass or dilated bowel. Contrast is visible in the urinary bladder probably related to recent enhanced CT. Normal soft tissue structures. Normal visualized osseous structures. RAD/Abdomen Single View (Portable) IMPRESSION: Residual radiographic evidence for dilated small bowel. Electronically Signed: Haylee Remy MD at 8:48 EST , Service support ,
[2019-10-11 07:09] LABS: Differential Indicated SCAN CRITERIA MET
[2019-10-11 07:16] LABS: Anion Gap 5 (5-15); BUN 18 mg/dL (7-18); BUN/Creat Ratio 16.4 RATIO (10-20); Calcium,Total 8.4 mg/dL (8.5-10.1); Chloride 102 mmol/L (98-107); EST Glomerular Filtration Rate 68 mL/min (>60); Est Glom Filt Rate - Afr Amer 82 mL/min (>60); Estimated Creatinine Clearance 54.38 ml/min; Glucose 115 mg/dL (74-106); Potassium 4.1 mmol/L (3.5-5.1); Sodium Level 138 mmol/L (136-145)
[2019-10-11 07:36] LABS: International Normalized Ratio 1.7; Prothrombin Time (Protime)PT. 19.6 SECONDS (11.7-14.9)
[2019-10-11] MEDS: 0.9% Saline Lock 10 ML Syringe IV (09:01)
--- NOTE | 2019-10-11 09:15 | RAD_ITS ---
STUDY: SMALL BOWEL SERIES. REASON FOR EXAM: Male, 83 years old. SMALL BOWEL OBSTRUCTION VS. ILEUS FLUOROSCOPY TIME (if supplied): ( 40 seconds ) minutes/seconds TECHNIQUE: Gastrografin was placed into the indwelling nasogastric tube. A small bowel follow-through examination was then obtained. COMPARISON: None. FINDINGS: A health actuary film was obtained. There is evidence of small bowel dilatation. A small amount of gas is seen in the colon. There is evidence of dilated small bowel loops with delay in transit. At 90 minutes, Gastrografin is seen within the right hemicolon. Findings are suggestive of either a partial small bowel obstruction versus ileus pattern. RAD/Small Bowel Series Only IMPRESSION: Delayed emptying of the small bowel loops into the colon suggestive of either small bowel ileus versus incomplete small bowel obstruction. Electronically Signed: Calvin Garcia, at 12:16 EST , Service support ,
--- NOTE | 2019-10-11 11:38 | CASEMGMT ---
RN CM Assessment: Presentation: PREETOBONNIE Intro role of CM and purpose of RN CM assessment to patient and his daughter. Demographics, PCP and Pharmacy verified. Pt states he is independent and able to care for self. No assistance at home. Drives and plans to return home on dc. PCP: Dr. Eliu Britton Specialists: Dr. Devon Rosa Preferred Pharmacy: [facility] Insurance: [email or web address] Prescription Benefit: yes LNOK: Daughter, aKitlyn Hahn Living Arrangements: Pt lives indepedendently Transportation: drives or family can assist. DME: none per pt. HHC/SNF: none Patient DC goals: Home DC PLAN: Home on dc. RN CM let pt know to contact cm if concerns or dc needs arise. Jatinder MASSEYN RN ACM
[2019-10-11 14:10] LABS: Pathologist Review Reviewed
[2019-10-11 14:13] LABS: Pathologist Review Reviewed
--- NOTE | 2019-10-11 15:14 | PCM.HOSP.N ---
Hospitalist Note And examined briefly this afternoon, he states he has had a bowel movement since he has had his upper GI performed today. For now, patient will continue to have an NG tube, general surgery is participating in his care and will reevaluate the patient tomorrow.
--- NOTE | 2019-10-11 17:21 | PCM.PN.BLA ---
Progress Note Patient small bowel follow-through did show still some dilated small bowel but contrast was in the colon at 90 minutes. Patient also had a large bowel movement today and has also been passing gas. Will remove NG. Due to the dilated small bowel we will keep on sips and check a KUB in the morning if improved we will plan to advance diet. Dr. Ervin will be rounding tomorrow. STROKE Vital Signs/Narrative: Vital Signs Temp Pulse Resp BP Pulse Ox 10/11/19 14:45 97.8 F 80 18 135/65 H 94
[2019-10-11] MEDS: Metoprolol Tartrate 25 MG Tablet PO (21:58)
[2019-10-12] VITALS (8 sets, daily range): BP systolic 125–141; BP diastolic 55–72; PULSE 65–83; RESP 18–20; TEMP 36.6–37.5; O2SAT 91–94
[2019-10-12] MEDS: Lactated Ringers 1,000 ML 50 ML IV (03:10)
--- NOTE | 2019-10-12 05:10 | RAD_ITS ---
STUDY: X-RAY - ABDOMEN/PELVIS REASON FOR EXAM: Male, 83 years old patient presents for follow up of small bowel obstruction. TECHNIQUE: Two AP supine views of the abdomen and pelvis. COMPARISON: Radiographs of the abdomen dated October 11, 2019 and images from small bowel follow-through dated October 11, 2019. FINDINGS: Normal visualized lung bases. Enteric contrast is visible within the colon consistent with partial bowel obstruction. There are numerous diverticula visible within the distal descending colon and sigmoid colon. There is persistent dilatation of small bowel with maximum transverse dimension of approximately 3.6 cm. There is no obvious organomegaly or mass. Contrast is visible in the urinary bladder probably related to previous contrast administration. Normal soft tissue structures. The bones are osteopenic. There are degenerative changes of the thoracic and lumbar spine. RAD/Abdomen Single View (Portable) IMPRESSION: Enteric contrast is visible throughout the colon consistent with a partial small bowel obstruction. Electronically Signed: Haylee Remy MD at 7:49 EST , Service support ,
--- NOTE | 2019-10-12 05:47 | PN.SURG_ITS ---
Patient Problems: Active and Suspected Problems (Last Updated 10/11/19 @ 03:31 by Jose Temple MD) SBO (small bowel obstruction) (Acute) Subjective: Currently denies abdominal pain. He has been able to pass a small amount of flatus and has had a small stool. He denies nausea - Physical Exam Vitals/I&O's: Vital Signs Temp Pulse Resp BP Pulse Ox 98.6 F 78 20 H 125/72 H 94 10/12/19 05:00 10/12/19 05:00 10/12/19 05:00 10/12/19 05:00 10/12/19 05:00 Oxygen Flow Rate (L/min) 1 Oxygen Delivery Method Room Air Weight: 193 lb 12.581 oz Body Mass Index (BMI) 27.8 Intake and Output for Last 24 Hours 10/10/19 10/11/19 10/12/19 23:59 23:59 23:59 Intake Total 500 / 500 455 / 530 865.83 / 865.83 Output Total 1300 / 1300 Balance 500 / 500 -845 / -770 865.83 / 865.83 Abdomen: Bowel Sounds Present, Soft, Non Tender - Occasional tinkles, slightly distended, Laboratory Results 10/10/19 22:15: Diff Path Review Reviewed 10/11/19 06:38: WBC 13.8 H, RBC 3.33 L, Hgb 9.8 L, Hct 29.8 L, MCV 89.5, MCH 29.4, MCHC 32.9, RDW Std Deviation 47.8 H, RDW Coeff of Ryanne 14.9 H, Plt Count 212, MPV 9.3, Immature Gran % (Auto) 0.700, Neut % (Auto) 79.0 H, Lymph % (Auto) 7.5 L, [place] % (Auto) 12.0 H, Eos % (Auto) 0.5, Baso % (Auto) 0.3, Absolute Neuts (auto) 10.9 H, Absolute Lymphs (auto) 1.03, Nucleated RBC % 0, Differential Comment COMMENT, Diff Path Review Reviewed 10/11/19 06:38: PT 19.6 H, INR 1.7 10/11/19 06:38: Sodium 138, Potassium 4.1, Chloride 102, Carbon Dioxide 31.0, Anion Gap 5, BUN 18, Creatinine 1.10, Estim Creat Clear Calc 54.38, Est GFR (MDRD) Af Amer 82, Est GFR (MDRD) Non-Af 68, BUN/Creatinine Ratio 16.4, Glucose 115 H, Calcium 8.4 L Current Medications Furosemide (Lasix) 20 mg PO DAILY [facility] Glucagon () 1 mg IM .X1 PRN PRN Reason: Hypoglycemia Lactated Ringer's () 1,000 mls @ 50 mls/hr IV .Q20H [facility] Stop: 10/12/19 18:06 Last Admin: 10/12/19 03:10 Dose: 50 mls/hr Documented by: Sodium Chloride () 250 mls @ 15 mls/hr IV .[id number] PRN PRN Reason: Saline Flush Sodium Chloride () 250 mls @ 15 mls/hr IV .[id number] PRN PRN Reason: Additional IVPB Infusion Dextrose (Dextrose 10%-Water) 250 mls @ 999 mls/hr IV .Q16M PRN; Protocol PRN Reason: HYPOGLYCEMIA Pantoprazole Sodium 40 mg/ (Sodium Chloride) 110 mls @ 330 mls/hr IV Q24 [facility] Last Infusion: 10/11/19 09:01 Dose: Infused Documented by: Metoprolol Tartrate (Lopressor (Beta Don)) 25 mg PO BID [facility] Last Admin: 10/11/19 21:58 Dose: 25 mg Documented by: Morphine Sulfate () 2 mg IV Q3H PRN PRN PRN Reason: Pain Score 5-10/10 Ondansetron HCl (Zofran) 4 mg IV Q8H PRN PRN PRN Reason: NAUSEA/VOMITING Prednisone () 10 mg PO DAILY@0800 [facility] Sodium Chloride () 10 - 40 ml IV UD PRN PRN Reason: SALINE FLUSH Last Admin: 10/11/19 09:01 Dose: 10 ml Documented by: Spironolactone (Aldactone) 25 mg PO DAILY [facility] Tamsulosin HCl (Flomax) 0.4 mg PO DAILY [facility] Medical Necessity - Tobacco Use Smoking Status: Former smoker Tobacco Use: Non-smoker Assessment/Plan All Active Problems (Last Updated 10/11/19 @ 03:31 by Jose Temple MD) SBO (small bowel obstruction) (Acute) Will initiate a full liquid diet. Pending patient's progress I would concur with potential discharge later today.
[2019-10-12] MEDS: predniSONE 10 MG Tablet PO (08:14)
[2019-10-12] MEDS: Metoprolol Tartrate 25 MG Tablet PO ×2 (08:15→20:18)
[2019-10-12] MEDS: Spironolactone 25 MG Tablet PO (08:15)
[2019-10-12] MEDS: Furosemide 20 MG Tablet PO (08:15)
[2019-10-12] MEDS: Tamsulosin HCl 0.4 MG Capsule PO (08:15)
--- NOTE | 2019-10-12 12:11 | NURSING ---
PT STATES VERY SMALL LIQUID STOOLS THIS AM - NOT SEEN BY THIS NURSE. PT STATES MOSTLY GAS
--- NOTE | 2019-10-12 13:51 | PN_ITS ---
Patient Problems: Active and Suspected Problems (Last Updated 10/11/19 @ 03:31 by Jose Temple MD) SBO (small bowel obstruction) (Acute) Subjective: +Flatus today-lots and sm BM today. No nausea. Diet advanced by surgery to FLD and pt tolerated with ease. Distention is better. Vitals/I&O's: Vital Signs Temp Pulse Resp BP Pulse Ox 99.3 F H 83 18 130/61 H 91 10/12/19 08:07 10/12/19 08:15 10/12/19 08:07 10/12/19 08:15 10/12/19 11:10 Oxygen Flow Rate (L/min) 1 Oxygen Delivery Method Room Air Weight: 87.9 kg Body Mass Index (BMI) 27.8 Intake and Output for Last 24 Hours 10/10/19 10/11/19 10/12/19 23:59 23:59 23:59 Intake Total 500 / 500 455 / 530 1395.83 / 1395.83 Output Total 1300 / 1300 0 / 0 Balance 500 / 500 -845 / -770 1395.83 / 1395.83 General: Alert, Oriented x3, Cooperative, No apparent distress, Well developed, Well nourished, - - family at bedside, pt ambulating in room I with IV pole HEENT: Atraumatic, PERRLA, EOMI, Normocephalic, EAC Clear Oral: Moist Mucosa, No Gingival or Mucosal Lesions/ Ulcerations, - - dentures in place Neck: Supple, No JVD Lungs: Clear to auscultation, Normal air movement, No rhonchi, No wheeze, No rales Cardiovascular: Regular rate, Regular Rhythm, Normal S1, Normal S2, No murmurs, No Ectopic Activity, No rub noted, No Gallop Abdomen: Bowel Sounds Present, Soft, Non Tender, Passing Flatus, Distended - mild, No hernias noted, - Extremities: No clubbing, No cyanosis, Edema - trace B LE edema Skin: No rashes, - - skin changes c/w sun exposure Musculoskeletal: No Tenderness to Palpation of Joints or Extremities, No Muscle Wasting Lymphatic: No Cervical, Supraclavicular, or Inguinal Adenopathy Neurological: Cranial nerves II-XII grossly intact, Deep Tendon Reflexes 2+/4 and Symmetrical, Neuro grossly intact, Motor Exam 5/5 strength throughout, Gait narrow based and stable Psych/Mental Status: Appropriate, Alert and oriented to time, place, person, mood and affect Laboratory Results 10/10/19 22:15: Diff Path Review Reviewed 10/11/19 06:38: Diff Path Review Reviewed Current Medications Furosemide (Lasix) 20 mg PO DAILY [facility] Last Admin: 10/12/19 08:15 Dose: 20 mg Documented by: Glucagon () 1 mg IM .X1 PRN PRN Reason: Hypoglycemia Lactated Ringer's () 1,000 mls @ 50 mls/hr IV .Q20H [facility] Stop: 10/12/19 18:06 Last Admin: 10/12/19 03:10 Dose: 50 mls/hr Documented by: Sodium Chloride () 250 mls @ 15 mls/hr IV .[id number] PRN PRN Reason: Saline Flush Sodium Chloride () 250 mls @ 15 mls/hr IV .[id number] PRN PRN Reason: Additional IVPB Infusion Dextrose (Dextrose 10%-Water) 250 mls @ 999 mls/hr IV .Q16M PRN; Protocol PRN Reason: HYPOGLYCEMIA Pantoprazole Sodium 40 mg/ (Sodium Chloride) 110 mls @ 330 mls/hr IV Q24 [facility] Last Infusion: 10/12/19 10:49 Dose: Infused Documented by: Metoprolol Tartrate (Lopressor (Beta Don)) 25 mg PO BID [facility] Last Admin: 10/12/19 08:15 Dose: 25 mg Documented by: Morphine Sulfate () 2 mg IV Q3H PRN PRN PRN Reason: Pain Score 5-10/10 Ondansetron HCl (Zofran) 4 mg IV Q8H PRN PRN PRN Reason: NAUSEA/VOMITING Prednisone () 10 mg PO DAILY@0800 [facility] Last Admin: 10/12/19 08:14 Dose: 10 mg Documented by: Sodium Chloride () 10 - 40 ml IV UD PRN PRN Reason: SALINE FLUSH Last Admin: 10/11/19 09:01 Dose: 10 ml Documented by: Spironolactone (Aldactone) 25 mg PO DAILY [facility] Last Admin: 10/12/19 08:15 Dose: 25 mg Documented by: Tamsulosin HCl (Flomax) 0.4 mg PO DAILY [facility] Last Admin: 10/12/19 08:15 Dose: 0.4 mg Documented by: STROKE Vital Signs/Narrative: Vital Signs Pulse Ox 10/12/19 11:10 91 Medical Necessity - Tobacco Use Smoking Status: Former smoker Tobacco Use: Non-smoker Assessment/Plan All Active Problems (Last Updated 10/11/19 @ 03:31 by Jose Temple MD) SBO (small bowel obstruction) (Acute) SBO -resolving -advanced to FLD by general surgery today -no surgery needed -will advance to reg diet for evening meal and if tolerates plan to d/c tomorrow am -continue IV protonix for now and d/c tomorrow if stable Hyponatremia -resolved CKD stage 3 -creat is at baseline -UO good Myopathy -continue steroids HTN/HPL continue home meds H/O DVT and PE -restart coumadin since OR not required--> 3 mg today -INR was 1.7 today -repeat INR in am -will bridge with Lovenox since is treatment for PE/DVT -1.5 mg/kg daily (trend creatinine) Leukocytosis -trending down -repeat in am Insomnia -restart home Ambien dosing DVT prophylaxis -fully anticoagulated
--- NOTE | 2019-10-12 20:40 | NURSING ---
pt ambulating in [facility]
[2019-10-13] VITALS (7 sets, daily range): BP systolic 111–142; BP diastolic 47–75; PULSE 55–92; RESP 16–18; TEMP 36.6–37.3; O2SAT 91–97
[2019-10-13] MEDS: Morphine 2 MG/ML Syringe IV (00:04)
[2019-10-13] MEDS: Ondansetron 4 MG/2 ML Vial IV (00:11)
[2019-10-13] MEDS: 0.9% Saline Lock 10 ML Syringe IV (00:15)
--- NOTE | 2019-10-13 04:53 | NURSING ---
pt ambulating in [facility]. reports decreased bloating
[2019-10-13 06:46] LABS: Absolute Lymphocyte Count 1.63 X10^3/uL (0.83-4.51); Absolute Neutrophil Count 8.5 X10^3/uL (2.0-7.7); Basophil# 0.04 X10^3/uL; Basophil% 0.3 % (0-1); Eosinophil# 0.11 X10^3/uL; Eosinophils% 0.9 % (0-5); Hematocrit 29.1 % (40-54); Hemoglobin 9.2 g/dL (13.0-16.5); Lymphocyte # 1.63 X10^3/ul (4.0); Lymphocyte % 13.7 % (19-41); Mean Corp Hgb Conc 31.6 g/dL (32-36); Mean Corpuscular Volume 91.8 fL (80-94); Mean Platelet Vol. 10.5 fl (6.2-12.0); Monocyte# 1.49 X10^3/uL; Monocyte% 12.6 % (0-10); NRBC Flagged by Analyzer 0 % (0-5); Neutrophil # 8.51 X10^3/uL (2.7-7.7); Neutrophil % 71.8 % (47-70); Platelet Count 182 K/mm3 (150-450); RBC Distribution Width CV 15.2 % (11.6-14.6); RBC Distribution Width SD 50.1 fl (35.1-43.9); Red Blood Count 3.17 M/mm3 (4.6-6.2); White Blood Count 11.9 K/mm3 (4.4-11.0)
[2019-10-13 06:50] LABS: International Normalized Ratio 1.7; Prothrombin Time (Protime)PT. 19.6 SECONDS (11.7-14.9)
--- NOTE | 2019-10-13 08:42 | CT_ITS ---
STUDY: CT ABDOMEN AND PELVIS WITH CONTRAST REASON FOR EXAM: Male, 83 years old. POSSIBLE SBO, ABD PAIN, NAUSEA, GERD, HERNIA REPAIR, CAD WITH STENTS, ON COUMADIN RADIATION DOSAGE (If Supplied By Facility): CTDIvol = ( 15.97 ) mGy, DLP = ( 1163.14 ) mGycm TECHNIQUE: Transaxial images were obtained from the dome of the diaphragm to the symphysis pubis with oral contrast. 1OOML ISOVUE 300 was administered. Sagittal and coronal images were reconstructed. Individualized dose optimization techniques were used for this CT. COMPARISON: October 10, 2019. FINDINGS: There is lower lung atelectasis. There are coronary artery calcifications. Normal liver. Normal gallbladder and extrahepatic biliary system. Normal spleen. There is 1.6 cm cystic lesion of the pancreatic neck, series 2 image 43/128. There is 0.8 cm cystic lesion of the tail of the pancreas. Normal bilateral adrenal glands. Normal right kidney. Normal left kidney. Normal visualized stomach. There is mild distention of loops of small intestine. There are multiple colonic diverticula consistent with diverticulosis. The appendix is visualized and appears normal. There is diffuse atherosclerotic calcification of the abdominal aorta, without a demonstrated aneurysm. Normal inferior vena cava. Normal retroperitoneum. Normal urinary bladder. There are prostatic calcifications. There is mild free fluid in the pelvis. There is postoperative change of the right inguinal region. Degenerative change of the spine. T8 compression fracture is stable. CT/Abdomen/Pelvis WITH Contrast IMPRESSION: Small bowel distention with partial obstruction versus ileus. Colonic diverticulosis. Electronically Signed: Michael Adhikari MD at 11:52 EST , Service support ,
[2019-10-13] MEDS: Furosemide 20 MG Tablet PO (08:43)
[2019-10-13] MEDS: Tamsulosin HCl 0.4 MG Capsule PO (08:43)
[2019-10-13] MEDS: predniSONE 10 MG Tablet PO (08:43)
[2019-10-13] MEDS: Spironolactone 25 MG Tablet PO (08:44)
[2019-10-13] MEDS: Metoprolol Tartrate 25 MG Tablet PO ×2 (08:44→22:07)
[2019-10-13] MEDS: Enoxaparin 150 MG/ML Syringe 130 MG SC (08:46)
--- NOTE | 2019-10-13 08:48 | PN.SURG_ITS ---
Patient Problems: Active and Suspected Problems (Last Updated 10/11/19 @ 03:31 by Jose Temple MD) SBO (small bowel obstruction) (Acute) Subjective: Patient was feeling well all day yesterday tolerating a light diet. Apparently last night around midnight he developed low abdominal pain and did require a dosing of narcotics. Again currently it is denying any abdominal pain at this moment. He feels that he is slightly more distended. He is however still passing small amounts of stool and flatus. Leukocytosis continues to slowly improve - Physical Exam Vitals/I&O's: Vital Signs Temp Pulse Resp BP Pulse Ox 99.1 F 68 16 140/55 H 93 10/13/19 07:59 10/13/19 07:59 10/13/19 07:59 10/13/19 07:59 10/13/19 07:59 Oxygen Flow Rate (L/min) 1 Oxygen Delivery Method Room Air Weight: 193 lb 12.581 oz Body Mass Index (BMI) 27.8 Intake and Output for Last 24 Hours 10/11/19 10/12/19 10/13/19 23:59 23:59 23:59 Intake Total 455 / 530 2875.83 / 3025.83 500 / 500 Output Total 1300 / 1300 0 / 0 Balance -845 / -770 2875.83 / 3025.83 500 / 500 Abdomen: Soft, Non Tender, Hypoactive Bowel Sounds, Distended Laboratory Results 10/13/19 05:24: PT 19.6 H, INR 1.7 10/13/19 05:24: WBC 11.9 H, RBC 3.17 L, Hgb 9.2 L, Hct 29.1 L, MCV 91.8, MCH 29.0, MCHC 31.6 L, RDW Std Deviation 50.1 H, RDW Coeff of Ryanne 15.2 H, Plt Count 182, MPV 10.5, Immature Gran % (Auto) 0.700, Neut % (Auto) 71.8 H, Lymph % (Auto) 13.7 L, [place] % (Auto) 12.6 H, Eos % (Auto) 0.9, Baso % (Auto) 0.3, Absolute Neuts (auto) 8.5 H, Absolute Lymphs (auto) 1.63, Nucleated RBC % 0 Current Medications Enoxaparin Sodium (Lovenox) 130 mg SC DAILY [facility] Furosemide (Lasix) 20 mg PO DAILY [facility] Last Admin: 10/12/19 08:15 Dose: 20 mg Documented by: Glucagon () 1 mg IM .X1 PRN PRN Reason: Hypoglycemia Sodium Chloride () 250 mls @ 15 mls/hr IV .[id number] PRN PRN Reason: Saline Flush Sodium Chloride () 250 mls @ 15 mls/hr IV .[id number] PRN PRN Reason: Additional IVPB Infusion Dextrose (Dextrose 10%-Water) 250 mls @ 999 mls/hr IV .Q16M PRN; Protocol PRN Reason: HYPOGLYCEMIA Pantoprazole Sodium 40 mg/ (Sodium Chloride) 110 mls @ 330 mls/hr IV Q24 [facility] Last Infusion: 10/12/19 10:49 Dose: Infused Documented by: Metoprolol Tartrate (Lopressor (Beta Don)) 25 mg PO BID [facility] Last Admin: 10/12/19 20:18 Dose: 25 mg Documented by: Morphine Sulfate () 2 mg IV Q3H PRN PRN PRN Reason: Pain Score 5-10/10 Last Admin: 10/13/19 00:04 Dose: 2 mg Documented by: Ondansetron HCl (Zofran) 4 mg IV Q8H PRN PRN PRN Reason: NAUSEA/VOMITING Last Admin: 10/13/19 00:11 Dose: 4 mg Documented by: Prednisone () 10 mg PO DAILY@0800 [facility] Last Admin: 10/12/19 08:14 Dose: 10 mg Documented by: Sodium Chloride () 10 - 40 ml IV UD PRN PRN Reason: SALINE FLUSH Last Admin: 10/13/19 00:15 Dose: 10 ml Documented by: Spironolactone (Aldactone) 25 mg PO DAILY [facility] Last Admin: 10/12/19 08:15 Dose: 25 mg Documented by: Tamsulosin HCl (Flomax) 0.4 mg PO DAILY [facility] Last Admin: 10/12/19 08:15 Dose: 0.4 mg Documented by: Medical Necessity - Tobacco Use Smoking Status: Former smoker Tobacco Use: Non-smoker Assessment/Plan All Active Problems (Last Updated 10/11/19 @ 03:31 by Jose Tempel MD) SBO (small bowel obstruction) (Acute) 83-year-old gentleman. He seemed to be steadily improving last night had some recurrent pain. I will again make him n.p.o. except for sips and chips. I will obtain a CT scan this time with oral contrast. It is not clear to me that he will make it through this hospitalization without the need for exploration. As noted currently again he is without pain and his leukocytosis is improved. He is not ready for discharge and is not ready for aggressive anticoagulation. It is noted that he received Coumadin again yesterday. He is on Lovenox as well. I would recommend holding off on aggressive anticoagulation until could be deemed whether surgery is required. He may very well need to be taken to the operating room tomorrow for exploration. Wyatt Ervin M.D., F.A.C.S.
--- NOTE | 2019-10-13 12:05 | PCM.PN.BLA ---
Progress Note CT scan demonstrates mild distended loops of small bowel. Apparently a transition point cannot be identified. There are significant metallic screws or clips in the right groin region. The patient has a history of a previous right inguinal hernia repair. From the appearance of the CT I suspect that this was done laparoscopically. It does appear to me that small bowel in that location has a different caliber than the small bowel more proximally. On my clinical examination he did have some tinkles. He was not acutely tender. I have just re-discussed his status with nursing staff who again claimed that he is not currently complaining of any pain. I will keep him only on the sips and chips. We will continue to mobilize. There is contrast that is seen in the colon. We will reevaluate tomorrow morning after he is further out from having received an oral dose of Coumadin. He may or may not require surgical intervention tomorrow. Wyatt Ervin M.D., F.A.C.S. STROKE Vital Signs/Narrative: Vital Signs Temp Pulse Resp BP Pulse Ox 10/13/19 11:25 98.4 F 55 L 16 111/47 L 92 10/13/19 08:44 68
--- NOTE | 2019-10-13 14:40 | PCM.PN.HOSP ---
Patient Problems: Active and Suspected Problems (Last Updated 10/11/19 @ 03:31 by Jose Temple MD) SBO (small bowel obstruction) (Acute) Subjective: Pt had an episode of acute pain last pm that subsided with the passing of flatus and morphine. He has had no pain today. Distention is better. He is passing flatus and had a good sized liquid BM today as well. Vitals/I&O's: Vital Signs Temp Pulse Resp BP Pulse Ox 98.3 F 62 16 130/72 H 93 10/13/19 14:34 10/13/19 14:34 10/13/19 14:34 10/13/19 14:34 10/13/19 14:34 Oxygen Flow Rate (L/min) 1 Oxygen Delivery Method Room Air Weight: 87.9 kg Body Mass Index (BMI) 27.8 Intake and Output for Last 24 Hours 10/11/19 10/12/19 10/13/19 23:59 23:59 23:59 Intake Total 455 / 530 2875.83 / 3025.83 610 / 610 Output Total 1300 / 1300 0 / 0 Balance -845 / -770 2875.83 / 3025.83 610 / 610 General: Alert, Oriented x3, Cooperative, No apparent distress, Well developed, Well nourished, - - lying in bed, appears comfortable, non-toxic, family at bedside Lungs: Clear to auscultation, Normal air movement, No rhonchi, No wheeze, No rales, Diminished Cardiovascular: Regular rate, Regular Rhythm, Normal S1, Normal S2, No murmurs, No Ectopic Activity, No rub noted, No Gallop Abdomen: Bowel Sounds Present, Soft, Non Tender, No Hepato-splenomegaly, Passing Flatus, Distended - mild distention, No hernias noted Extremities: No clubbing, No cyanosis, No edema Musculoskeletal: No Tenderness to Palpation of Joints or Extremities Neurological: Neuro grossly intact Psych/Mental Status: Normal Affect, - - smiling and joking, Alert and oriented to time, place, person, mood and affect Laboratory Results 10/13/19 05:24: PT 19.6 H, INR 1.7 10/13/19 05:24: WBC 11.9 H, RBC 3.17 L, Hgb 9.2 L, Hct 29.1 L, MCV 91.8, MCH 29.0, MCHC 31.6 L, RDW Std Deviation 50.1 H, RDW Coeff of Ryanne 15.2 H, Plt Count 182, MPV 10.5, Immature Gran % (Auto) 0.700, Neut % (Auto) 71.8 H, Lymph % (Auto) 13.7 L, [place] % (Auto) 12.6 H, Eos % (Auto) 0.9, Baso % (Auto) 0.3, Absolute Neuts (auto) 8.5 H, Absolute Lymphs (auto) 1.63, Nucleated RBC % 0 Current Medications Furosemide (Lasix) 20 mg PO DAILY [facility] Last Admin: 10/13/19 08:43 Dose: 20 mg Documented by: Glucagon () 1 mg IM .X1 PRN PRN Reason: Hypoglycemia Sodium Chloride () 250 mls @ 15 mls/hr IV .[id number] PRN PRN Reason: Saline Flush Sodium Chloride () 250 mls @ 15 mls/hr IV .[id number] PRN PRN Reason: Additional IVPB Infusion Dextrose (Dextrose 10%-Water) 250 mls @ 999 mls/hr IV .Q16M PRN; Protocol PRN Reason: HYPOGLYCEMIA Pantoprazole Sodium 40 mg/ (Sodium Chloride) 110 mls @ 330 mls/hr IV Q24 [facility] Last Infusion: 10/13/19 09:59 Dose: Infused Documented by: Lactated Ringer's () 1,000 mls @ 50 mls/hr IV .Q20H [facility] Metoprolol Tartrate (Lopressor (Beta Don)) 25 mg PO BID [facility] Last Admin: 10/13/19 08:44 Dose: 25 mg Documented by: Morphine Sulfate () 2 mg IV Q3H PRN PRN PRN Reason: Pain Score 5-10/10 Last Admin: 10/13/19 00:04 Dose: 2 mg Documented by: Ondansetron HCl (Zofran) 4 mg IV Q8H PRN PRN PRN Reason: NAUSEA/VOMITING Last Admin: 10/13/19 00:11 Dose: 4 mg Documented by: Prednisone () 10 mg PO DAILY@0800 [facility] Last Admin: 10/13/19 08:43 Dose: 10 mg Documented by: Sodium Chloride () 10 - 40 ml IV UD PRN PRN Reason: SALINE FLUSH Last Admin: 10/13/19 00:15 Dose: 10 ml Documented by: Spironolactone (Aldactone) 25 mg PO DAILY [facility] Last Admin: 10/13/19 08:44 Dose: 25 mg Documented by: Tamsulosin HCl (Flomax) 0.4 mg PO DAILY [facility] Last Admin: 10/13/19 08:43 Dose: 0.4 mg Documented by: STROKE Vital Signs/Narrative: Vital Signs Temp Pulse Resp BP Pulse Ox 10/13/19 14:34 98.3 F 62 16 130/72 H 93 10/13/19 11:25 98.4 F 55 L 16 111/47 L 92 Medical Necessity - Tobacco Use Smoking Status: Former smoker Tobacco Use: Non-smoker Assessment/Plan All Active Problems (Last Updated 10/11/19 @ 03:31 by Joes Temple MD) SBO (small bowel obstruction) (Acute) SBO -seems to be resolving overall -NPO per surgery again today with overnight events -start IVF at 50 cc/hr -hold OAC -got Lovenox today (treatment dose) -will monitor for need tomorrow -continue IV protonix CKD stage 3 -creat is at baseline -UO good Myopathy -continue steroids HTN/HPL continue home meds H/O DVT and PE -hold coumadin -received therapeutic Lovenox today already -hold tomorrow until surgical decision made -may need FFP if goes to [place] Leukocytosis -still trending down -repeat in am Insomnia -restart home Ambien dosing DVT prophylaxis -fully anticoagulated Plan: Per Surgery Code Visit Inpatient E&M: 95959 Subs Hosp L2
[2019-10-13] MEDS: Lactated Ringers 1,000 ML 50 ML IV (15:00)
[2019-10-14] VITALS (14 sets, daily range): BP systolic 131–149; BP diastolic 57–98; PULSE 55–92; RESP 16–20; TEMP 36.3–37.2; O2SAT 90–95; BMI 27.8
[2019-10-14] MEDS: Zolpidem Tartrate 5 MG Tablet PO (00:37)
[2019-10-14 05:09] LABS: Absolute Lymphocyte Count 1.93 X10^3/uL (0.83-4.51); Absolute Neutrophil Count 7.2 X10^3/uL (2.0-7.7); Basophil# 0.04 X10^3/uL; Basophil% 0.4 % (0-1); Eosinophil# 0.15 X10^3/uL; Eosinophils% 1.4 % (0-5); Hematocrit 30.9 % (40-54); Hemoglobin 9.9 g/dL (13.0-16.5); Lymphocyte # 1.93 X10^3/ul (4.0); Lymphocyte % 18.1 % (19-41); Mean Corpuscular Hgb 28.9 pg (27.0-32.0); Mean Corpuscular Volume 90.1 fL (80-94); Mean Platelet Vol. 9.5 fl (6.2-12.0); Monocyte# 1.28 X10^3/uL; NRBC Flagged by Analyzer 0 % (0-5); Neutrophil # 7.24 X10^3/uL (2.7-7.7); Neutrophil % 67.6 % (47-70); Platelet Count 172 K/mm3 (150-450); RBC Distribution Width CV 14.6 % (11.6-14.6); RBC Distribution Width SD 48.1 fl (35.1-43.9); Red Blood Count 3.43 M/mm3 (4.6-6.2); White Blood Count 10.7 K/mm3 (4.4-11.0)
[2019-10-14 05:16] LABS: International Normalized Ratio 1.6; Prothrombin Time (Protime)PT. 18.9 SECONDS (11.7-14.9)
[2019-10-14 05:30] LABS: Anion Gap 6 (5-15); BUN 17 mg/dL (7-18); BUN/Creat Ratio 14.9 RATIO (10-20); Calcium,Total 8.4 mg/dL (8.5-10.1); Chloride 101 mmol/L (98-107); Creatinine, Serum 1.14 mg/dL (0.70-1.30); EST Glomerular Filtration Rate 65 mL/min (>60); Est Glom Filt Rate - Afr Amer 79 mL/min (>60); Estimated Creatinine Clearance 52.47 ml/min; Glucose 77 mg/dL (74-106); Sodium Level 137 mmol/L (136-145)
--- NOTE | 2019-10-14 07:33 | PN.SURG_ITS ---
Patient Problems: Active and Suspected Problems (Last Updated 10/11/19 @ 03:31 by Jose Temple MD) SBO (small bowel obstruction) (Acute) Subjective: Patient did have abdominal pain after starting diet on Monday night. Currently patient denies any abdominal pain nausea or vomiting admits some flatus as well as some small bowel movements. Per family patient has had this ongoing issues with bloating. - Physical Exam Vitals/I&O's: Vital Signs Temp Pulse Resp BP Pulse Ox 97.7 F L 71 18 147/74 H 92 10/14/19 05:37 10/14/19 05:37 10/14/19 05:37 10/14/19 05:37 10/14/19 05:37 Oxygen Flow Rate (L/min) 1 Oxygen Delivery Method Room Air Weight: 193 lb 12.581 oz Body Mass Index (BMI) 27.8 Intake and Output for Last 24 Hours 10/12/19 10/13/19 10/14/19 23:59 23:59 23:59 Intake Total 2875.83 / 3025.83 610 / 610 250 / 250 Output Total 0 / 0 Balance 2875.83 / 3025.83 610 / 610 250 / 250 General: Alert, Oriented x3, Cooperative, No apparent distress HEENT: Atraumatic Lungs: Normal air movement Abdomen: Soft, Non Tender, Non-Distended Neurological: Cranial nerves II-XII grossly intact Laboratory Results 10/14/19 04:58: WBC 10.7, RBC 3.43 L, Hgb 9.9 L, Hct 30.9 L, MCV 90.1, MCH 28.9, MCHC 32.0, RDW Std Deviation 48.1 H, RDW Coeff of Ryanne 14.6, Plt Count 172, MPV 9.5, Immature Gran % (Auto) 0.500, Neut % (Auto) 67.6, Lymph % (Auto) 18.1 L, [place] % (Auto) 12.0 H, Eos % (Auto) 1.4, Baso % (Auto) 0.4, Absolute Neuts (auto) 7.2, Absolute Lymphs (auto) 1.93, Nucleated RBC % 0 10/14/19 04:58: Sodium 137, Potassium 4.0, Chloride 101, Carbon Dioxide 30.0, Anion Gap 6, BUN 17, Creatinine 1.14, Estim Creat Clear Calc 52.47, Est GFR (MDRD) Af Amer 79, Est GFR (MDRD) Non-Af 65, BUN/Creatinine Ratio 14.9, Glucose 77, Calcium 8.4 L 10/14/19 04:58: PT 18.9 H, INR 1.6 Current Medications Furosemide (Lasix) 20 mg PO DAILY [facility] Last Admin: 10/13/19 08:43 Dose: 20 mg Documented by: Glucagon () 1 mg IM .X1 PRN PRN Reason: Hypoglycemia Sodium Chloride () 250 mls @ 15 mls/hr IV .[id number] PRN PRN Reason: Saline Flush Sodium Chloride () 250 mls @ 15 mls/hr IV .[id number] PRN PRN Reason: Additional IVPB Infusion Dextrose (Dextrose 10%-Water) 250 mls @ 999 mls/hr IV .Q16M PRN; Protocol PRN Reason: HYPOGLYCEMIA Pantoprazole Sodium 40 mg/ (Sodium Chloride) 110 mls @ 330 mls/hr IV Q24 [facility] Last Infusion: 10/13/19 09:59 Dose: Infused Documented by: Lactated Ringer's () 1,000 mls @ 50 mls/hr IV .Q20H [facility] Last Admin: 10/13/19 15:00 Dose: 50 mls/hr Documented by: Metoprolol Tartrate (Lopressor (Beta Don)) 25 mg PO BID [facility] Last Admin: 10/13/19 22:07 Dose: 25 mg Documented by: Morphine Sulfate () 2 mg IV Q3H PRN PRN PRN Reason: Pain Score 5-10/10 Last Admin: 10/13/19 00:04 Dose: 2 mg Documented by: Ondansetron HCl (Zofran) 4 mg IV Q8H PRN PRN PRN Reason: NAUSEA/VOMITING Last Admin: 10/13/19 00:11 Dose: 4 mg Documented by: Prednisone () 10 mg PO DAILY@0800 [facility] Last Admin: 10/13/19 08:43 Dose: 10 mg Documented by: Sodium Chloride () 10 - 40 ml IV UD PRN PRN Reason: SALINE FLUSH Last Admin: 10/13/19 00:15 Dose: 10 ml Documented by: Spironolactone (Aldactone) 25 mg PO DAILY [facility] Last Admin: 10/13/19 08:44 Dose: 25 mg Documented by: Tamsulosin HCl (Flomax) 0.4 mg PO DAILY [facility] Last Admin: 10/13/19 08:43 Dose: 0.4 mg Documented by: Zolpidem Tartrate (Ambien (Generic)) 5 mg PO QHS PRN PRN PRN Reason: INSOMNIA Last Admin: 10/14/19 00:37 Dose: 5 mg Documented by: Medical Necessity - Tobacco Use Smoking Status: Former smoker Tobacco Use: Non-smoker Assessment/Plan All Active Problems (Last Updated 10/11/19 @ 03:31 by Jose Temple MD) SBO (small bowel obstruction) (Acute) 83-year-old male with partial small bowel obstruction 1. Patient currently on sips and chips and denies any pain. Will check a KUB this morning. If patient small bowel are still dilated he may benefit from exploratory laparoscopic he it seems like patient's had a history of this intermittent abdominal bloating and unable to eat. Patient does live alone. Addendum: Patient did still have some proximal small bowel KUB. We will plan to do exploratory laparoscopic, possible laparotomy, possible bowel resection. CT from admission and the weekend suspicious for possible adhesions in the lower quadrant as he does have decompressed bowel there with clips. Patient is only had open inguinal hernias x2 per patient and incisions do correspond with this. Discussed risk including but not limited to bleeding, injury to another organ, infection, etc. patient and his family no further questions this time. Waleska Ambrocio M.D. Pager: [phone] [facility] [address] [place] [address], [facility], [address] [place] [address] Office: [phone]
[2019-10-14] MEDS: Tamsulosin HCl 0.4 MG Capsule PO (08:25)
[2019-10-14] MEDS: predniSONE 10 MG Tablet PO (08:25)
[2019-10-14] MEDS: Metoprolol Tartrate 25 MG Tablet PO ×2 (08:25→22:05)
[2019-10-14] MEDS: Spironolactone 25 MG Tablet PO (08:25)
[2019-10-14] MEDS: Furosemide 20 MG Tablet PO (08:25)
--- NOTE | 2019-10-14 08:30 | PN_ITS ---
Patient Problems: Active and Suspected Problems (Last Updated 10/11/19 @ 03:31 by Jose Temple MD) SBO (small bowel obstruction) (Acute) Subjective: No pain, N/V last pm. Feeling ok today. Nml BM last night. Vitals/I&O's: Vital Signs Temp Pulse Resp BP Pulse Ox 97.8 F 62 18 144/98 H 93 10/14/19 08:23 10/14/19 08:23 10/14/19 08:23 10/14/19 08:23 10/14/19 08:23 Oxygen Flow Rate (L/min) 1 Oxygen Delivery Method Room Air Weight: 87.9 kg Body Mass Index (BMI) 27.8 Intake and Output for Last 24 Hours 10/12/19 10/13/19 10/14/19 23:59 23:59 23:59 Intake Total 2875.83 / 3025.83 610 / 610 250 / 250 Output Total 0 / 0 Balance 2875.83 / 3025.83 610 / 610 250 / 250 General: Alert, Oriented x3, Cooperative, No apparent distress, - - family at bedside Lungs: Clear to auscultation, Normal air movement, No rhonchi, No wheeze, No rales Cardiovascular: Regular rate, Regular Rhythm, Normal S1, Normal S2, No murmurs, No Ectopic Activity, No rub noted, No Gallop Abdomen: Bowel Sounds Present, Soft, Non-Distended, No Hepato-splenomegaly, Passing Flatus, Tender - very mild diffuse, No hernias noted Extremities: No clubbing, No cyanosis Psych/Mental Status: Appropriate, Alert and oriented to time, place, person, mood and affect Laboratory Results 10/14/19 04:58: WBC 10.7, RBC 3.43 L, Hgb 9.9 L, Hct 30.9 L, MCV 90.1, MCH 28.9, MCHC 32.0, RDW Std Deviation 48.1 H, RDW Coeff of Ryanne 14.6, Plt Count 172, MPV 9.5, Immature Gran % (Auto) 0.500, Neut % (Auto) 67.6, Lymph % (Auto) 18.1 L, [place] % (Auto) 12.0 H, Eos % (Auto) 1.4, Baso % (Auto) 0.4, Absolute Neuts (auto) 7.2, Absolute Lymphs (auto) 1.93, Nucleated RBC % 0 10/14/19 04:58: Sodium 137, Potassium 4.0, Chloride 101, Carbon Dioxide 30.0, Anion Gap 6, BUN 17, Creatinine 1.14, Estim Creat Clear Calc 52.47, Est GFR (MDRD) Af Amer 79, Est GFR (MDRD) Non-Af 65, BUN/Creatinine Ratio 14.9, Glucose 77, Calcium 8.4 L 10/14/19 04:58: PT 18.9 H, INR 1.6 Current Medications Furosemide (Lasix) 20 mg PO DAILY [facility] Last Admin: 10/13/19 08:43 Dose: 20 mg Documented by: Glucagon () 1 mg IM .X1 PRN PRN Reason: Hypoglycemia Sodium Chloride () 250 mls @ 15 mls/hr IV .[id number] PRN PRN Reason: Saline Flush Sodium Chloride () 250 mls @ 15 mls/hr IV .[id number] PRN PRN Reason: Additional IVPB Infusion Dextrose (Dextrose 10%-Water) 250 mls @ 999 mls/hr IV .Q16M PRN; Protocol PRN Reason: HYPOGLYCEMIA Pantoprazole Sodium 40 mg/ (Sodium Chloride) 110 mls @ 330 mls/hr IV Q24 [facility] Last Infusion: 10/13/19 09:59 Dose: Infused Documented by: Lactated Ringer's () 1,000 mls @ 50 mls/hr IV .Q20H [facility] Last Admin: 10/13/19 15:00 Dose: 50 mls/hr Documented by: Metoprolol Tartrate (Lopressor (Beta Don)) 25 mg PO BID [facility] Last Admin: 10/13/19 22:07 Dose: 25 mg Documented by: Morphine Sulfate () 2 mg IV Q3H PRN PRN PRN Reason: Pain Score 5-10/10 Last Admin: 10/13/19 00:04 Dose: 2 mg Documented by: Ondansetron HCl (Zofran) 4 mg IV Q8H PRN PRN PRN Reason: NAUSEA/VOMITING Last Admin: 10/13/19 00:11 Dose: 4 mg Documented by: Prednisone () 10 mg PO DAILY@0800 [facility] Last Admin: 10/13/19 08:43 Dose: 10 mg Documented by: Sodium Chloride () 10 - 40 ml IV UD PRN PRN Reason: SALINE FLUSH Last Admin: 10/13/19 00:15 Dose: 10 ml Documented by: Spironolactone (Aldactone) 25 mg PO DAILY [facility] Last Admin: 10/13/19 08:44 Dose: 25 mg Documented by: Tamsulosin HCl (Flomax) 0.4 mg PO DAILY [facility] Last Admin: 10/13/19 08:43 Dose: 0.4 mg Documented by: Zolpidem Tartrate (Ambien (Generic)) 5 mg PO QHS PRN PRN PRN Reason: INSOMNIA Last Admin: 10/14/19 00:37 Dose: 5 mg Documented by: STROKE Vital Signs/Narrative: Vital Signs Temp Pulse Resp BP Pulse Ox 10/14/19 08:23 97.8 F 62 18 144/98 H 93 10/14/19 07:07 90 10/14/19 05:37 97.7 F L 71 18 147/74 H 92 Medical Necessity - Tobacco Use Smoking Status: Former smoker Tobacco Use: Non-smoker Assessment/Plan All Active Problems (Last Updated 10/11/19 @ 03:31 by Jose Temple MD) SBO (small bowel obstruction) (Acute) SBO -seems to be resolving overall -NPO per surgery for now and KUB pending to aid with decision making RE: OR -continue IVF at 50 cc/hr -if PO started and intake is good will d/c later -hold OAC for today -Last lovenox dose was yesterday am at 1000 -if no OR today will dose Lovenox -continue IV protonix CKD stage 3 -creat is at baseline -UO good Myopathy -continue steroids HTN/HPL continue home meds H/O DVT and PE -hold coumadin -Lovenox today if no OR today -may need FFP if goes to OR (INR 1.6) -will need bridged at d/c Leukocytosis -resolved Anemia -stable hgb -trend -no s/o bleeding Insomnia -continue Ambien dosing DVT prophylaxis -fully anticoagulated Plan: Per Surgery Code Visit Inpatient E&M: 24950 Subs Hosp L2
--- NOTE | 2019-10-14 08:30 | RAD_ITS ---
STUDY: X-RAY - ABDOMEN/PELVIS REASON FOR EXAM: Male, 83 years old. SBO TECHNIQUE: Single AP view of the abdomen / pelvis. COMPARISON: 10/12/2019 FINDINGS: Normal visualized lung bases. Gas in multiple loops of small bowel in a nonspecific bowel gas pattern. Oral contrast throughout the colon. The visualized liver, spleen and kidneys are grossly normal in size and morphology. Normal soft tissue structures. Normal visualized osseous structures. RAD/Abdomen Single View (Portable) IMPRESSION: Nonspecific bowel gas pattern. Electronically Signed: Giles Genao MD at 13:09 EST Tel , Service support ,
[2019-10-14] MEDS: Lactated Ringers 1,000 ML 50 ML IV (10:51)
[2019-10-14] MEDS: Hydrocortisone Sod Succinate 100 MG/2 ML Vial 50 MG IV (12:44)
[2019-10-14] MEDS: 0.9% Saline Lock 10 ML Syringe IV (12:44)
--- NOTE | 2019-10-14 13:17 | EKG12_ITS ---
Test Reason : PRE OP Blood Pressure : / mmHG Vent. Rate : 057 BPM Atrial Rate : 057 BPM P-R Int : 174 ms QRS Dur : 088 ms QT Int : 412 ms P-R-T Axes : 046 -14 -04 degrees QTc Int : 401 ms Sinus bradycardia Nonspecific T wave abnormality Abnormal ECG Confirmed by KAMILLE ELLIS, TANK ([id number]), digital editor ELLIE BAHENA ([id number]) on 10/15/2019 9:47:22 AM Referred By: SATINDER Confirmed By:TANK SIMENTAL MD
[2019-10-14] MEDS: Lactated Ringers 1,000 ML 100 ML IV (14:00)
[2019-10-14] MEDS: Cefazolin 2 GM in 0.9% Normal Saline 100 ML IV (14:57)
--- NOTE | 2019-10-14 15:40 | PCA ---
pt off floor
[2019-10-14] MEDS: Bupiv/Epi 0.25% 30 ML Vial (16:00)
--- NOTE | 2019-10-14 16:00 | OP.PCM_ITS ---
Report of Operation Date of Procedure: 10/14/19 Pre-Operative Diagnosis: Partial small bowel obstruction Post-Operative Diagnosis: Partial small bowel obstruction due to adhesions Surgery/Procedure Performed:: Exploratory laparoscopic, lysis of adhesions release of partial small bowel obstruction licensed funeral director and embalmer: Shawn Zhang Type of Anesthesia:: General/Supplemental Anesthesiologist: Jeff Espinal Special Medications: Ancef 2 g IV x1 Specimen's removed: None Drains: Urine output [place]?650 cc removed at the end of the case Estimated Blood Loss (mL): < 10 cc Fluids Replaced: 700 cc Description of Procedure: Indications this is a 83 year-old male who developed abdominal pain/nausea/vomiting and abdominal bloating and on workup was found to have a likely partial small bowel obstruction as his small bowel follow-through did get to the colon and 90 minutes patient did have dilated small bowel. Patient also gave a history of having intermittent bloating and not be able to eat for short amount of time over the last several months. Denies any abdominal surgeries only had an inguinal hernia repairs open bilaterally. Exploratory laparoscopically, possible laparotomy, possible bowel resection was elected. Patient was agreeable to proceed.. Description procedure: The patient was placed on operating table in supine position. General Anesthesia was induced. A timeout was completed verifying correct patient, procedure, site, position and special equipment prior to beginning procedure. The abdomen was prepped and draped in usual sterile fashion. An incision was made in the natural skin line above the umbilicus. The fascia was elevated and incised. The peritoneum was elevated and incised. Entry into the peritoneum was confirmed visually and no bowel was noted in the vicinity of the incision. Garnica trocar was placed. The abdomen was insufflated with carbon dioxide to a pressure of 12-15 mmHg. Patient tolerated insufflation well. The laparoscope was then inserted and abdomen inspected. No injuries from initial trocar placement were noted. Additional trochars were placed in the left lower lateral quadrant and left upper lateral quadrant. The small bowel was ran from terminal ileum to ligament of Treitz. There is noted to be some tight adhesions in the distal ileum causing the bowel to make tight turns upon itself. These were carefully taken down with Metzenbaum scissors. The small bowel was reran and there is no evidence of any additional adhesions. Laparoscopically we did take a look at the colon as well no obvious abnormalities were seen. 5 mm trochars were removed under direct visualization. The laparoscope was removed along with the Garnica trocar. The fascia was closed [id number] 0 Vicryl suture. Incisions were irrigated. Skin was closed with 4-0 Monocryl. Steri-Strips and OpSite were placed. Patient was extubated. Patient tolerated procedure well and was taken to the postanesthesia care unit in stable condition. - Complications None
--- NOTE | 2019-10-14 17:26 | PCA ---
pt off floor
[2019-10-15] MEDS: Lactated Ringers 1,000 ML 50 ML IV (01:42)
[2019-10-15 03:58] VITALS: BP 138/62; PULSE 57; RESP 18; TEMP 36.3; O2SAT 94
[2019-10-15 06:21] LABS: International Normalized Ratio 1.5; Prothrombin Time (Protime)PT. 18.1 SECONDS (11.7-14.9)
--- NOTE | 2019-10-15 07:21 | PCM.PN.SRG ---
Patient Problems: Active and Suspected Problems (Last Updated 10/11/19 @ 03:31 by Jose Temple MD) SBO (small bowel obstruction) (Acute) Subjective: Patient denies any abdominal pain except for some soreness near incisions, patient tolerating clears, denies flatus - Physical Exam Vitals/I&O's: Vital Signs Temp Pulse Resp BP Pulse Ox 97.4 F L 57 L 18 138/62 H 94 10/15/19 03:58 10/15/19 03:58 10/15/19 03:58 10/15/19 03:58 10/15/19 03:58 Oxygen Flow Rate (L/min) 1 Oxygen Delivery Method Nasal Cannula Weight: 193 lb 12.581 oz Body Mass Index (BMI) 27.8 Intake and Output for Last 24 Hours 10/13/19 10/14/19 10/15/19 23:59 23:59 23:59 Intake Total 610 / 610 3463.33 / 4703.33 2465.83 / 2465.83 Output Total 650 / 650 100 / 100 Balance 610 / 610 2813.33 / 4053.33 2365.83 / 2365.83 General: Alert, Oriented x3, Cooperative, No apparent distress HEENT: Atraumatic Cardiovascular: Regular rate Abdomen: Soft, Distended - Mild, Tender - Near incisions incision clean dry and intact with op sites Laboratory Results 10/15/19 05:50: PT 18.1 H, INR 1.5 Current Medications Acetaminophen (Tylenol) 650 mg PO Q6H PRN PRN PRN Reason: Pain SCALE 1-10/10 or Fever Furosemide (Lasix) 20 mg PO DAILY FOR[facility]LY [facility], [facility]1983 Last Admin: 10/14/19 08:25 Dose: 20 mg Documented by: Glucagon () 1 mg IM .X1 PRN PRN Reason: Hypoglycemia Sodium Chloride () 250 mls @ 15 mls/hr IV .[id number] PRN PRN Reason: Saline Flush Sodium Chloride () 250 mls @ 15 mls/hr IV .[id number] PRN PRN Reason: Additional IVPB Infusion Dextrose (Dextrose 10%-Water) 250 mls @ 999 mls/hr IV .Q16M PRN; Protocol PRN Reason: HYPOGLYCEMIA Pantoprazole Sodium 40 mg/ (Sodium Chloride) 110 mls @ 330 mls/hr IV Q24 FOR[facility], [facility]1983 Last Infusion: 12/23/19 11:11 Dose: Infused Documented by: Lactated Ringer's () 1,000 mls @ 50 mls/hr IV .Q20H [facility], [facility] Last Admin: 10/15/19 01:42 Dose: 50 mls/hr Documented by: Lactated Ringer's () 1,000 mls @ 100 mls/hr IV .Q10H [facility], [facility]1983 Last Admin: 10/15/19 01:42 Dose: Not Given Documented by: Metoprolol Tartrate (Lopressor (Beta Don)) 25 mg PO BID FOR[facility]LY [facility], [facility]1983 Last Admin: 10/14/19 22:05 Dose: 25 mg Documented by: Morphine Sulfate () 2 mg IV Q3H PRN PRN PRN Reason: Pain Score 5-10/10 Last Admin: 10/13/19 00:04 Dose: 2 mg Documented by: Ondansetron HCl (Zofran) 4 mg IV Q8H PRN PRN PRN Reason: NAUSEA/VOMITING Last Admin: 10/13/19 00:11 Dose: 4 mg Documented by: Oxycodone HCl (Oxyir) 5 - 10 mg PO Q4H PRN PRN PRN Reason: Pain Score 6-10/10 Prednisone () 10 mg PO DAILY@0800 [facility], [facility] Last Admin: 10/14/19 08:25 Dose: 10 mg Documented by: Sodium Chloride () 10 - 40 ml IV UD PRN PRN Reason: SALINE FLUSH Last Admin: 10/14/19 12:44 Dose: 10 ml Documented by: Spironolactone (Aldactone) 25 mg PO DAILY [facility], [facility] Last Admin: 10/14/19 08:25 Dose: 25 mg Documented by: Tamsulosin HCl (Flomax) 0.4 mg PO DAILY [facility], [facility] Last Admin: 10/14/19 08:25 Dose: 0.4 mg Documented by: Zolpidem Tartrate (Ambien (Generic)) 5 mg PO QHS PRN PRN PRN Reason: INSOMNIA Last Admin: 10/14/19 00:37 Dose: 5 mg Documented by: Medical Necessity - Tobacco Use Smoking Status: Former smoker Tobacco Use: Non-smoker Assessment/Plan All Active Problems (Last Updated 10/11/19 @ 03:31 by Jose Temple MD) SBO (small bowel obstruction) (Acute) 83-year-old male with partial small bowel obstruction status post exploratory laparoscopy, lysis of adhesions 1. We will continue patient on sips of clears until he has flatus then okay to advance to cardiac diet, if patient tolerates diet continues to have bowel function could possibly be DC'd later today. Patient will follow-up with me in 2 weeks in the office. Waleska Ambrocio M.D. Pager: [phone] [facility] [address] [place] [address], [facility], [address] [place] [address] Office: [phone]
[2019-10-15 08:06] VITALS: BP 142/73; PULSE 64; RESP 18; TEMP 36.7; O2SAT 94
[2019-10-15 08:08] VITALS: BP 142/73; PULSE 64
[2019-10-15] MEDS: Metoprolol Tartrate 25 MG Tablet PO (08:08)
[2019-10-15] MEDS: Tamsulosin HCl 0.4 MG Capsule PO (08:08)
[2019-10-15] MEDS: predniSONE 10 MG Tablet PO (08:09)
[2019-10-15] MEDS: Furosemide 20 MG Tablet PO (08:09)
[2019-10-15] MEDS: Spironolactone 25 MG Tablet PO (08:10)
[2019-10-15] MEDS: Ensure Clear 120 ML Liquid PO ×2 (08:12→12:50)
[2019-10-15 11:00] VITALS: O2SAT 94
[2019-10-15 14:05] VITALS: BP 130/63; PULSE 64; RESP 18; TEMP 36.8; O2SAT 93
--- NOTE | 2019-10-15 18:11 | PCM.DC ---
- Discharge Diagnoses Current Active Problems: Current Active and Chronic Problems (Last Updated 10/11/19 @ 03:31 by Jose Temple MD) SBO (small bowel obstruction) (Acute) You will use the following diet at home:: No restrictions Your food should be the consistency of: Regular Your liquids should be the consistency of: Regular/Thin Discharge Activity: Return to Normal Activity Weight Bearing Status: Full weight bearing Allergies/Adverse Reactions: Allergies naproxen [From Naprosyn] Allergy (Verified 10/10/19 20:46) Other Medications to take at Discharge Amlodipine Besylate [Norvasc] 10 mg PO DAILY 07/15/17 Ascorbic Acid [Vitamin C] 1,000 mg PO DAILY 07/15/17 Cholecalciferol (Vitamin D3) [Vitamin D3] 1,000 unit PO DAILY 07/15/17 Flaxseed Oil 1,000 mg PO DAILY 07/15/17 Furosemide [Lasix] 20 mg PO DAILY 07/15/17 Garlic 1,000 mg PO DAILY 07/15/17 Metoprolol Tartrate 25 mg PO BID 07/15/17 Tamsulosin HCl [Flomax] 0.4 mg PO DAILY 07/15/17 Vit B12/Levomefolate/Vit B6/B2 [l-Methyl-Mc Tablet] 1 each PO DAILY 07/15/17 Warfarin [Coumadin] 3 mg PO MOWEFR 07/15/17 Prednisone 10 mg PO DAILY 10/10/19 Rosuvastatin Calcium 5 mg PO DAILY 10/10/19 Warfarin Sodium [Coumadin] 2 mg PO SUTUTHSA 10/11/19 Acetaminophen [Tylenol Tablet] 650 mg PO Q6H PRN PRN tab 10/15/19 Hydrocodone Bitart/Apap 5-325 [[place] 5MG-325MG] 1 tab PO Q4H PRN PRN 7 Days #15 tab 10/15/19 The following prescriptions were given: Hydrocodone Bitart/Apap 5-325 [[place] 5MG-325MG] 1 tab PO Q4H PRN PRN 7 Days #15 tab PRN Reason: Pain Prescription Printed Primary Care Physician: Eliu Britton MD [Primary Care Provider] - Please follow up with your Primary Care Physician in: in 2 weeks Test Results: Test results from this visit will be discussed in further detail at your follow-up appointment, if applicable. Please Follow Up With: Waleska Ambrocio MD When: in two weeks
[2019-10-15 18:45] VITALS: BP 145/69; PULSE 60; RESP 18; TEMP 37.1; O2SAT 93
--- NOTE | 2019-10-17 16:12 | CASEMGMT ---
Addendum entered by Larissa Kim 10/17/19 16:27: Pt returned call to this RN GABINO at this time. Pt states has been doing 'pretty good' since discharge but states is a 'little sore.' Pt states no questions regarding discharge instructions/medications at this time. Pt states has not filled the WISETIVI script d/t pharmacies being closed when he was discharged. Pt states has f/u scheduled with surgeon's office on 10/29/18 and plans to keep. Pt asked about taking something 'to loosen my bowels' and this RN CM referred him to surgeon's office for question at this time. Pt states no suggestions for [facility] at this time and stated you all 'done pretty good.' Pt voices no further questions/concerns/needs at this time. Jorge FITZPATRICK CM Original Note: NANETTE LLOYD F/U Phone Call LACE: 10 Strata: 3 Discharge date: 10/15/19 Call date: 10/17/19 Call time: [id number] Attempted to reach pt without success at this time, message left for pt to call this RN GABINO back if/when able. Jorge FITZPATRICK CM Admission dx: SBO
--- NOTE | 2019-10-17 17:01 | PCM.DC.SUM ---
Discharge Date and Diagnosis Date of Admission: 10/11/19 Date of Discharge: 10/15/19 - Primary Discharge Diagnosis #1 Partial small bowel obstruction secondary to adhesions #2 chronic kidney disease stage III #3 essential hypertension #4 chronic anemia-etiology unclear Hospital Course and Treatment Operations: - - Exploratory laparoscopy with lysis of adhesion and release of partial small bowel obstruction Procedures: None Summary of Care Provided: The patient is a 83 year old M was seen in the emergency room at [facility] with a chief complaint of abdominal pain, work-up in the emergency room included a CBC which showed an elevated white count of 19.3, CT of the abdomen and pelvis showed mildly distended proximal small bowel loops with air-fluid levels-an obstructive pattern could not be excluded. General surgery was contacted and requested the patient receive 1 unit of FFP due to his use of Coumadin as an outpatient and requested that an NG tube be inserted. It was also requested that the hospitalist service admit the patient, he was admitted to [place] [address] and supportive care was administered, it became evident that the patient had to undergo surgery however and he underwent laparoscopic surgery with lysis of adhesions which were causing a partial small bowel obstruction. Patient tolerated the surgery well. There were no complications during his hospitalization. On 10/15/2019, patient was seen and examined: On examination he appeared in good health and spirits. Vital signs as documented. Skin warm and dry and without overt rashes. Neck without JVD. Lungs clear. Heart exam notable for regular rhythm, normal sounds and absence of murmurs, rubs or gallops. Abdomen unremarkable and without evidence of organomegaly, masses, or abdominal aortic enlargement. Extremities nonedematous. Neuro: Cranial nerves II through XII are grossly intact, no focal motor deficits were noted, sensation to light touch and pinprick intact. Psych: Patient is alert and oriented x3, he does not appear anxious or depressed On 10/15/2019, patient was seen and examined and felt to be in stable condition for discharge home. - Physical Exam Vitals/I&O's: Vital Signs Temp Pulse Resp BP Pulse Ox 98.7 F 60 18 145/69 H 93 10/15/19 18:45 10/15/19 18:45 10/15/19 18:45 10/15/19 18:45 10/15/19 18:45 Oxygen Flow Rate (L/min) 1 Oxygen Delivery Method Room Air Weight: 87.9 kg Body Mass Index (BMI) 27.8 Intake and Output for Last 24 Hours 10/15/19 10/16/19 10/17/19 23:59 23:59 23:59 Intake Total 2575.83 / 2575.83 Output Total 1750 / 1750 Balance 825.83 / 825.83 Discharge Activity: Return to Normal Activity Weight Bearing Status: Full weight bearing Home Medications: Medications to take at Discharge Amlodipine Besylate [Norvasc] 10 mg PO DAILY 07/15/17 Ascorbic Acid [Vitamin C] 1,000 mg PO DAILY 07/15/17 Cholecalciferol (Vitamin D3) [Vitamin D3] 1,000 unit PO DAILY 07/15/17 Flaxseed Oil 1,000 mg PO DAILY 07/15/17 Furosemide [Lasix] 20 mg PO DAILY 07/15/17 Garlic 1,000 mg PO DAILY 07/15/17 Metoprolol Tartrate 25 mg PO BID 07/15/17 Tamsulosin HCl [Flomax] 0.4 mg PO DAILY 07/15/17 Vit B12/Levomefolate/Vit B6/B2 [l-Methyl-Mc Tablet] 1 each PO DAILY 07/15/17 Warfarin [Coumadin] 3 mg PO MOWEFR 07/15/17 Prednisone 10 mg PO DAILY 10/10/19 Rosuvastatin Calcium 5 mg PO DAILY 10/10/19 Warfarin Sodium [Coumadin] 2 mg PO SUTUTHSA 10/11/19 Acetaminophen [Tylenol Tablet] 650 mg PO Q6H PRN PRN tab 10/15/19 Hydrocodone Bitart/Apap 5-325 [[place] 5MG-325MG] 1 tab PO Q4H PRN PRN 7 Days #15 tab 10/15/19 Following Prescrptions Were Given to Patient: Hydrocodone Bitart/Apap 5-325 [[place] 5MG-325MG] 1 tab PO Q4H PRN PRN 7 Days #15 tab PRN Reason: Pain Prescription Printed Primary Care Physician: Eliu Britton MD [Primary Care Provider] - Please follow up with your Primary Care Physician in: in 2 weeks Please Follow Up With: Waleska Ambrocio MD When: in two weeks Disposition: Home Minutes spent on discharge:: 32 Patient Condition:: Stable Medical Necessity - Tobacco Use Smoking Status: Former smoker Tobacco Use: Non-smoker Meaningful Use Info Meaningful Use Diagnoses (Choose all that apply): None applicable Code Visit Inpatient E&M: 04772 Disch Hosp
== END 2019-10-15 19:01 | disposition home or self-care (01) | DRG 336 ==
LOC: ED 21:38 → MS3 10-11 01:27
PROVIDERS: Internal Medicine; Surgery; Admitting Provider Hospitalist; Emergency Provider Emergency Medicine; Family Provider Family Medicine; PCP Family Medicine; Visit Provider Internal Medicine
PROC: 0DNB4ZZ Release Ileum, Percutaneous Endoscopic Approach (ICD-10-PCS; CPT 44202; principal; 2019-10-14 14:15)
DX: K56.51 Intestinal adhesions [bands], with partial obstruction (principal); E87.1 Hypo-osmolality and hyponatremia; N18.3 Chronic kidney disease, stage 3 (moderate); I12.9 Hypertensive chronic kidney disease with stage 1 through stage 4 chronic kidney disease, or unspecified chronic kidney disease; D64.9 Anemia, unspecified; Z79.01 Long term (current) use of anticoagulants; I25.10 Atherosclerotic heart disease of native coronary artery without angina pectoris; Z95.5 Presence of coronary angioplasty implant and graft; Z86.711 Personal history of pulmonary embolism; Z86.718 Personal history of other venous thrombosis and embolism; G47.00 Insomnia, unspecified; G72.9 Myopathy, unspecified; Z87.891 Personal history of nicotine dependence
CPT/HCPCS: 36415; 74018; 74177; 74250; 80048; 80053; 81001; 83605; 83690; 84484; 85025; 85610; 86850; 86900; 86901; 93005; 94640; 97162; 97166; 99285; J7040; J7120; P9017; Q9967; A4216; J2405

== ENCOUNTER → 2019-12-30 09:58 | Outpatient (CLI) | payer MEDICARE, SELFPAY ==
[2019-10-29 09:07] VITALS: BMI 27.8
[2019-12-30 12:37] LABS: Absolute Lymphocyte Count 1.39 X10^3/uL (0.83-4.51); Basophil# 0.07 X10^3/uL; Basophil% 0.9 % (0-1); Eosinophil# 0.16 X10^3/uL; Hematocrit 33.4 % (40-54); Hemoglobin 10.5 g/dL (13.0-16.5); Lymphocyte # 1.39 X10^3/ul (4.0); Lymphocyte % 17.7 % (19-41); Mean Corp Hgb Conc 31.4 g/dL (32-36); Mean Corpuscular Hgb 28.5 pg (27.0-32.0); Mean Corpuscular Volume 90.8 fL (80-94); Mean Platelet Vol. 10.2 fl (6.2-12.0); Monocyte% 15.3 % (0-10); NRBC Flagged by Analyzer 0 % (0-5); Neutrophil # 5.01 X10^3/uL (2.7-7.7); Neutrophil % 63.7 % (47-70); Platelet Count 231 K/mm3 (150-450); RBC Distribution Width CV 15.3 % (11.6-14.6); RBC Distribution Width SD 51.1 fl (35.1-43.9); Red Blood Count 3.68 M/mm3 (4.6-6.2); White Blood Count 7.9 K/mm3 (4.4-11.0)
[2019-12-30 12:47] LABS: ALB/GLOB Ratio 0.8 RATIO (0.9-2.4); AST(SGOT) 25 U/L (15-37); Alanine Aminotransfer ALT/SGPT 23 U/L (16-61); Albumin, Serum 3.1 g/dL (3.2-5.0); Alkaline Phosphatase 54 U/L (45-117); Anion Gap 8 (5-15); BUN 16 mg/dL (7-18); BUN/Creat Ratio 12.6 RATIO (10-20); Calcium,Total 9.1 mg/dL (8.5-10.1); Chloride 107 mmol/L (98-107); Creatinine, Serum 1.27 mg/dL (0.70-1.30); EST Glomerular Filtration Rate 58 mL/min (>60); Est Glom Filt Rate - Afr Amer 70 mL/min (>60); Glucose 130 mg/dL (74-106); Potassium 3.9 mmol/L (3.5-5.1); Protein, Total 7.1 g/dL (6.4-8.2); Sodium Level 139 mmol/L (136-145)
== END ==
PROVIDERS: PCP Family Medicine; Referring Provider Family Medicine; Visit Provider Family Medicine
DX: M79.89 Other specified soft tissue disorders (principal)
CPT/HCPCS: 36415; 80053; 83735; 85025

== ENCOUNTER → 2020-06-11 10:42 | Outpatient (CLI) | payer MEDICARE, SELFPAY ==
[2019-10-29 09:07] VITALS: BMI 27.8
[2020-06-11 12:38] LABS: Absolute Neutrophil Count 3.6 X10^3/uL (2.0-7.7); Basophil# 0.07 X10^3/uL; Basophil% 1.1 % (0-1); Eosinophil# 0.18 X10^3/uL; Eosinophils% 2.9 % (0-5); Hemoglobin 10.9 g/dL (13.0-16.5); Lymphocyte % 20.9 % (19-41); Mean Corp Hgb Conc 32.1 g/dL (32-36); Mean Corpuscular Hgb 30.4 pg (27.0-32.0); Mean Platelet Vol. 9.8 fl (6.2-12.0); Monocyte# 1.01 X10^3/uL; Monocyte% 16.2 % (0-10); NRBC Flagged by Analyzer 0 % (0-5); Neutrophil # 3.63 X10^3/uL (2.7-7.7); Neutrophil % 58.3 % (47-70); Platelet Count 223 K/mm3 (150-450); RBC Distribution Width CV 13.2 % (11.6-14.6); RBC Distribution Width SD 46.1 fl (35.1-43.9); Red Blood Count 3.58 M/mm3 (4.6-6.2); White Blood Count 6.2 K/mm3 (4.4-11.0)
[2020-06-11 13:12] LABS: ALB/GLOB Ratio 0.9 RATIO (0.9-2.4); AST(SGOT) 23 U/L (15-37); Alanine Aminotransfer ALT/SGPT 24 U/L (16-61); Albumin, Serum 3.4 g/dL (3.2-5.0); Alkaline Phosphatase 63 U/L (45-117); Anion Gap 5 (5-15); BUN 22 mg/dL (7-18); BUN/Creat Ratio 17.5 RATIO (10-20); Calcium,Total 8.9 mg/dL (8.5-10.1); Chloride 103 mmol/L (98-107); Creatinine, Serum 1.26 mg/dL (0.70-1.30); EST Glomerular Filtration Rate 58 mL/min (>60); Est Glom Filt Rate - Afr Amer 70 mL/min (>60); Globulin 3.8 g/dL (2.2-4.2); Glucose 103 mg/dL (74-106); Potassium 4.4 mmol/L (3.5-5.1); Protein, Total 7.2 g/dL (6.4-8.2); Sodium Level 133 mmol/L (136-145); Thyroid Stim Hormone (TSH) 2.91 uIU/mL (0.358-3.74)
[2020-06-11 16:03] LABS: Creatinine, Urine (random) < 13.00 mg/dL (NO RANGE EST.); Microalbumin,Random Urine < 5.0 mg/L (NO RANGE EST.)
== END ==
PROVIDERS: PCP Family Medicine; Referring Provider Family Medicine; Visit Provider Family Medicine
DX: I26.99 Other pulmonary embolism without acute cor pulmonale (principal); I10 Essential (primary) hypertension
CPT/HCPCS: 36415; 80053; 82043; 82570; 84443; 85025

== ENCOUNTER → 2020-07-07 15:59 | Outpatient (CLI) | payer MEDICARE, SELFPAY ==
[2019-10-29 09:07] VITALS: BMI 27.8
== END ==
PROVIDERS: PCP Family Medicine; Referring Provider Nurse Practitioner Adult Health; Visit Provider Nurse Practitioner Adult Health
DX: N39.0 Urinary tract infection, site not specified (principal)
CPT/HCPCS: 87086

== ENCOUNTER → 2020-11-19 18:10 | Outpatient (CLI) | payer MEDICARE, OTHER, SELFPAY ==
[2019-10-29 09:07] VITALS: BMI 27.8
[2020-11-25 20:14] LABS: pH, Stool 6.5 (7.0-7.5)
== END ==
PROVIDERS: PCP Family Medicine; Referring Provider Family Medicine; Visit Provider Family Medicine
DX: R10.12 Left upper quadrant pain (principal)
CPT/HCPCS: 83986

== ENCOUNTER → 2021-01-07 16:12 | Outpatient (CLI) | payer MEDICARE, SELFPAY ==
[2019-10-29 09:07] VITALS: BMI 27.8
--- NOTE | 2021-01-07 16:16 | RAD_ITS ---
STUDY: X-RAY CHEST REASON FOR EXAM: Male, 85 years old. ATRIAL FIBRILLATION -- sob TECHNIQUE: PA and lateral views of the chest. COMPARISON: 02/06/1980 FINDINGS: The lungs are clear and expanded. There is no demonstrated pleural abnormality. Normal size heart. Normal mediastinum and izzy. Normal visualized pulmonary arteries. Normal visualized aortic arch and descending thoracic aorta. Normal visualized thoracic spine. Normal visualized ribs, clavicles, and shoulders. There is no demonstrated abnormality of the visualized soft tissue structures of the upper abdomen. RAD/Chest PA and Lateral IMPRESSION: Normal x-ray examination of the chest. Electronically Signed: Giles Genao MD at 9:52 EDT Tel , Service support ,
[2021-01-07 17:37] LABS: Absolute Lymphocyte Count 1.42 X10^3/uL (0.83-4.51); Absolute Neutrophil Count 4.1 X10^3/uL (2.0-7.7); Basophil# 0.06 X10^3/uL; Basophil% 0.9 % (0-1); Eosinophil# 0.18 X10^3/uL; Eosinophils% 2.7 % (0-5); Hematocrit 33.1 % (40-54); Hemoglobin 10.7 g/dL (13.0-16.5); Lymphocyte # 1.42 X10^3/ul (4.0); Lymphocyte % 20.9 % (19-41); Mean Corp Hgb Conc 32.3 g/dL (32-36); Mean Corpuscular Hgb 30.9 pg (27.0-32.0); Mean Corpuscular Volume 95.7 fL (80-94); Mean Platelet Vol. 10.1 fl (6.2-12.0); Monocyte# 0.97 X10^3/uL; Monocyte% 14.3 % (0-10); NRBC Flagged by Analyzer 0 % (0-5); Neutrophil # 4.14 X10^3/uL (2.7-7.7); Neutrophil % 60.9 % (47-70); Platelet Count 246 K/mm3 (150-450); RBC Distribution Width CV 13.5 % (11.6-14.6); RBC Distribution Width SD 47.7 fl (35.1-43.9); Red Blood Count 3.46 M/mm3 (4.6-6.2); White Blood Count 6.8 K/mm3 (4.4-11.0)
[2021-01-07 18:13] LABS: Anion Gap 9 (5-15); BUN 18 mg/dL (7-18); BUN/Creat Ratio 12.9 RATIO (10-20); Calcium,Total 8.9 mg/dL (8.5-10.1); Chloride 104 mmol/L (98-107); EST Glomerular Filtration Rate 51 mL/min (>60); Est Glom Filt Rate - Afr Amer 62 mL/min (>60); Glucose 119 mg/dL (74-106); Potassium 4.4 mmol/L (3.5-5.1); Sodium Level 140 mmol/L (136-145); Thyroid Stim Hormone (TSH) 2.47 uIU/mL (0.358-3.74)
== END ==
PROVIDERS: PCP Family Medicine; Referring Provider Family Medicine; Visit Provider Family Medicine
DX: I48.91 Unspecified atrial fibrillation (principal)
CPT/HCPCS: 36415; 71046; 80048; 84443; 85025

== ENCOUNTER → 2021-05-12 12:08 | Outpatient (CLI) | payer MEDICARE, SELFPAY ==
[2019-10-29 09:07] VITALS: BMI 27.8
== END ==
PROVIDERS: PCP Family Medicine; Visit Provider Family Medicine
DX: R30.0 Dysuria (principal)
CPT/HCPCS: 87086

== ENCOUNTER → 2021-07-08 12:38 | Outpatient (CLI) | payer MEDICARE, SELFPAY ==
--- NOTE | 2021-07-08 13:06 | RAD_ITS ---
STUDY: X-RAY - RIGHT HAND, ATTENTION RING FINGER REASON FOR EXAM: Right ring finger injury, unable to straighten the DIP joint. TECHNIQUE: 3 view(s) of the finger were obtained. COMPARISON: None. FINDINGS: Normal metacarpal head. Normal metacarpophalangeal joint. Normal proximal phalanx. Normal middle phalanx. There is a small retracted avulsion fracture of the dorsal base of the distal phalanx. There is a small marginal osteophyte and joint space narrowing of the proximal interphalangeal joint. There is flexion deformity at the distal interphalangeal joint. RAD/Finger(s) Min 2 Views IMPRESSION: Small avulsion fracture of the dorsal base of the distal phalanx with flexion deformity at the distal interphalangeal joint. Arthrosis of the proximal interphalangeal joint. Electronically Signed: Erasmo Godinez MD at 13:13 EDT Tel , Service support ,
== END ==
PROVIDERS: PCP Family Medicine; Referring Provider Family Medicine; Visit Provider Family Medicine
DX: S69.91XA Unspecified injury of right wrist, hand and finger(s), initial encounter (principal)
CPT/HCPCS: 73140

== ENCOUNTER → 2021-07-15 17:15 | Outpatient (CLI) | payer MEDICARE, SELFPAY ==
[2021-07-15 17:36] LABS: Bacteria 0 SEEN /hpf (None Seen); Mucous, Urine 0 SEEN /hpf (<or=2+); Squamous Epithelial Cells - UA 0 SEEN /hpf (0-5); White Blood Cells 0 SEEN /hpf (0-5)
[2021-07-15 17:43] LABS: Color, Urine Yellow (Yellow); Glucose, Dipstick Normal (Normal); Ketone-Dipstick Negative (Negative); Leukocyte Esterase-Dipstick Negative /ul (Negative); Nitrite-Dipstick Negative (Negative); Occult Blood-Urine 10 /ul (Negative); Protein-Dipstick Negative (Negative); Urine Bilirubin Dipstick Negative (Negative); Urine Clarity Clear (Clear); Urine Urobilinogen Normal (Normal)
[2021-07-15 17:54] LABS: Red Blood Cells-Urine 0-5 SEEN /hpf (0-5)
== END ==
PROVIDERS: PCP Family Medicine; Referring Provider Nurse Practitioner Adult Health; Visit Provider Nurse Practitioner Adult Health
DX: R31.21 Asymptomatic microscopic hematuria (principal)
CPT/HCPCS: 81001

== ENCOUNTER 2021-10-28 07:09 | Outpatient (CLI) | payer MEDICARE, SELFPAY ==
[2021-10-28 10:22] LABS: Hemoglobin 11.4 g/dL (13.0-16.5); Mean Corp Hgb Conc 33.5 g/dL (32-36); Mean Corpuscular Hgb 31.3 pg (27.0-32.0); Mean Corpuscular Volume 93.4 fL (80-94); Mean Platelet Vol. 10.4 fl (6.2-12.0); Platelet Count 222 K/mm3 (150-450); RBC Distribution Width CV 13.6 % (11.6-14.6); RBC Distribution Width SD 46.2 fl (35.1-43.9); Red Blood Count 3.64 M/mm3 (4.6-6.2); White Blood Count 9.2 K/mm3 (4.4-11.0)
[2021-10-28 10:44] LABS: Anion Gap 8 (5-15); BUN 24 mg/dL (7-18); BUN/Creat Ratio 17.3 RATIO (10-20); Calcium,Total 9.4 mg/dL (8.5-10.1); Chloride 103 mmol/L (98-107); Cholesterol 103 mg/dL (200); Creatinine, Serum 1.39 mg/dL (0.70-1.30); EST Glomerular Filtration Rate 52 mL/min (>60); Est Glom Filt Rate - Afr Amer 63 mL/min (>60); Glucose 101 mg/dL (74-106); High Density Lipoprotein 50 mg/dL; PSA,Total - Annual Screen 1.57 ng/mL (0.00-4.00); Potassium 4.4 mmol/L (3.5-5.1); Sodium Level 136 mmol/L (136-145); Triglycerides 94 mg/dL; Very Low Density Lipoprotein 19 mg/dL (5-40)
== END 2021-10-28 23:59 | disposition short-term general hospital (02) ==
PROVIDERS: PCP Family Medicine; Referring Provider Nurse Practitioner Family; Visit Provider Nurse Practitioner Family
DX: I10 Essential (primary) hypertension (principal); Z12.5 Encounter for screening for malignant neoplasm of prostate
CPT/HCPCS: 36415; 80048; 80061; 84153; 85027; G0103

== ENCOUNTER 2021-12-24 09:52 | Outpatient (CLI) | payer MEDICARE, SELFPAY ==
--- NOTE | 2021-12-24 09:56 | RAD_ITS ---
EXAM: XR ABDOMEN, 2 VIEWS AND XR CHEST, 1 VIEW CLINICAL INDICATION: functional dyspepsia TECHNIQUE: Frontal view of the chest, frontal view of the abdomen/pelvis and upright or decubitus view of the abdomen. This report was created using [employer] report generation technology. COMPARISON: None. FINDINGS: CHEST: LUNGS AND PLEURAL SPACES: Unremarkable. No consolidation or edema. No pneumothorax. No effusion. HEART: Unremarkable. Cardiac silhouette not enlarged. MEDIASTINUM: Central airways and mediastinal contour are unremarkable. ABDOMEN: INTRAPERITONEAL SPACE: No free air. GASTROINTESTINAL TRACT: Unremarkable. Non-obstructive. No bowel or stomach distention. ORGANS: Unremarkable as visualized. No organomegaly. No abnormal calcifications. TUBES, LINES AND DEVICES: None. BONES/JOINTS: Degenerative findings in the lumbar spine. SOFT TISSUES: No acute findings. VASCULATURE: There are thoracic aortic calcifications consistent for atherosclerotic disease. RAD/Acute Abdomen Inc Chest IMPRESSION: No acute findings in the chest, abdomen or pelvis. Electronically Signed: Dustin Hairston MD at 21:42 EST Reading Location ID and State: [facility] / [place] , Service support ,
== END 2021-12-24 23:59 | disposition home or self-care (01) ==
LOC: MTRAD 09:54
PROVIDERS: PCP Family Medicine; Referring Provider Family Medicine; Visit Provider Family Medicine
DX: K30 Functional dyspepsia (principal)
CPT/HCPCS: 74022

== ENCOUNTER → 2022-02-18 | Outpatient (CLI) | payer MEDICARE, SELFPAY | END | disposition home or self-care (01) | LOC: LABSPEC 15:14 | PROVIDERS: PCP Family Medicine; Visit Provider Family Medicine | DX: R30.0 Dysuria (principal) | CPT/HCPCS: 87086 ==

== ENCOUNTER → 2022-05-31 | Outpatient (CLI) | payer MEDICARE, SELFPAY ==
[2022-05-31 12:01] LABS: Bacteria 0 SEEN /hpf (None Seen); Mucous, Urine 0 SEEN /hpf (<or=2+); Red Blood Cells-Urine 0 SEEN /hpf (0-5); Squamous Epithelial Cells - UA 0 SEEN /hpf (0-5); White Blood Cells 0 SEEN /hpf (0-5)
[2022-05-31 15:14] LABS: Color, Urine Straw (Yellow); Glucose, Dipstick Normal (Normal); Ketone-Dipstick Negative (Negative); Leukocyte Esterase-Dipstick Negative /ul (Negative); Nitrite-Dipstick Negative (Negative); Occult Blood-Urine 10 /ul (Negative); Protein-Dipstick Negative (Negative); Specific Gravity, Urine 1.005 (1.002-1.030); Urine Bilirubin Dipstick Negative (Negative); Urine Clarity Clear (Clear); Urine Urobilinogen Normal (Normal)
[2022-05-31 15:21] LABS: Basophil# 0.06 X10^3/uL; Basophil% 0.8 % (0-1); Eosinophils% 1.3 % (0-5); Hematocrit 34.9 % (40-54); Hemoglobin 11.3 g/dL (13.0-16.5); Lymphocyte % 17.1 % (19-41); Mean Corp Hgb Conc 32.4 g/dL (32-36); Mean Corpuscular Hgb 30.6 pg (27.0-32.0); Mean Corpuscular Volume 94.6 fL (80-94); Monocyte# 1.08 X10^3/uL; Monocyte% 14.2 % (0-10); NRBC Flagged by Analyzer 0 % (0-5); Neutrophil # 5.01 X10^3/uL (2.7-7.7); Neutrophil % 65.9 % (47-70); Platelet Count 245 K/mm3 (150-450); RBC Distribution Width CV 13.2 % (11.6-14.6); RBC Distribution Width SD 45.3 fl (35.1-43.9); Red Blood Count 3.69 M/mm3 (4.6-6.2); White Blood Count 7.6 K/mm3 (4.4-11.0)
[2022-05-31 15:29] LABS: ALB/GLOB Ratio 0.9 RATIO (0.9-2.4); AST(SGOT) 28 U/L (15-37); Alanine Aminotransfer ALT/SGPT 30 U/L (16-61); Albumin, Serum 3.6 g/dL (3.2-5.0); Alkaline Phosphatase 52 U/L (45-117); Anion Gap 8 (5-15); BUN 23 mg/dL (7-18); BUN/Creat Ratio 17.2 RATIO (10-20); Calcium,Total 9.1 mg/dL (8.5-10.1); Chloride 103 mmol/L (98-107); Creatinine, Serum 1.34 mg/dL (0.70-1.30); EST Glomerular Filtration Rate 54 mL/min (>60); Est Glom Filt Rate - Afr Amer 65 mL/min (>60); Globulin 4.1 g/dL (2.2-4.2); Glucose 107 mg/dL (74-106); Potassium 4.2 mmol/L (3.5-5.1); Protein, Total 7.7 g/dL (6.4-8.2); Sodium Level 137 mmol/L (136-145)
[2022-05-31 15:41] LABS: Microalbumin,Random Urine 5.1 mg/L (NO RANGE EST.); Microalbumin:Creatinine Ratio 32.6 mg/g CRE (<30 mg/g CRE)
== END | disposition home or self-care (01) ==
LOC: MTLAB 11:58
PROVIDERS: PCP Family Medicine; Referring Provider Family Medicine; Visit Provider Family Medicine
DX: I10 Essential (primary) hypertension (principal); I48.91 Unspecified atrial fibrillation; Z79.01 Long term (current) use of anticoagulants; R35.0 Frequency of micturition
CPT/HCPCS: 36415; 80053; 81001; 82043; 82570; 85025; 87086

== ENCOUNTER → 2022-11-28 | Outpatient (CLI) | payer MEDICARE, SELFPAY ==
[2022-11-28 15:24] LABS: Hematocrit 34.7 % (40-54); Hemoglobin 11.3 g/dL (13.0-16.5); Mean Corp Hgb Conc 32.6 g/dL (32-36); Mean Corpuscular Hgb 30.6 pg (27.0-32.0); Mean Platelet Vol. 10.9 fl (6.2-12.0); Platelet Count 215 K/mm3 (150-450); RBC Distribution Width CV 13.3 % (11.6-14.6); RBC Distribution Width SD 46.5 fl (35.1-43.9); Red Blood Count 3.69 M/mm3 (4.6-6.2); White Blood Count 7.5 K/mm3 (4.4-11.0)
[2022-11-28 15:30] LABS: International Normalized Ratio 2.4; Prothrombin Time (Protime)PT. 26.2 SECONDS (11.7-14.9)
[2022-11-28 15:36] LABS: ALB/GLOB Ratio 0.9 RATIO (0.9-2.4); AST(SGOT) 30 U/L (15-37); Alanine Aminotransfer ALT/SGPT 30 U/L (16-61); Albumin, Serum 3.7 g/dL (3.2-5.0); Alkaline Phosphatase 56 U/L (45-117); Anion Gap 9 (5-15); BUN 22 mg/dL (7-18); BUN/Creat Ratio 14.7 RATIO (10-20); Calcium,Total 9.5 mg/dL (8.5-10.1); Chloride 102 mmol/L (98-107); EST Glomerular Filtration Rate 47 mL/min (>60); Est Glom Filt Rate - Afr Amer 57 mL/min (>60); Globulin 4.1 g/dL (2.2-4.2); Glucose 112 mg/dL (74-106); PSA,Total - Annual Screen 2.47 ng/mL (0.00-4.00); Potassium 3.9 mmol/L (3.5-5.1); Protein, Total 7.8 g/dL (6.4-8.2); Sodium Level 137 mmol/L (136-145)
[2022-11-28 15:45] LABS: Vitamin D,25 Hydroxy 45.6 ng/mL
== END | disposition home or self-care (01) ==
PROVIDERS: PCP Family Medicine; Referring Provider Family Medicine; Visit Provider Family Medicine
DX: I12.9 Hypertensive chronic kidney disease with stage 1 through stage 4 chronic kidney disease, or unspecified chronic kidney disease (principal); I48.91 Unspecified atrial fibrillation; N18.2 Chronic kidney disease, stage 2 (mild); Z86.718 Personal history of other venous thrombosis and embolism; Z12.5 Encounter for screening for malignant neoplasm of prostate
CPT/HCPCS: 36415; 80053; 82306; 84153; 85027; 85610; G0103

== ENCOUNTER → 2023-08-14 | Outpatient (CLI) | payer MEDICARE, SELFPAY ==
[2023-08-14 10:14] LABS: Absolute Lymphocyte Count 1.86 X10^3/uL (0.83-4.51); Absolute Neutrophil Count 4.2 X10^3/uL (2.0-7.7); Basophil# 0.07 X10^3/uL; Basophil% 0.9 % (0-1); Eosinophil# 0.18 X10^3/uL; Eosinophils% 2.4 % (0-5); Hematocrit 36.3 % (40-54); Hemoglobin 11.6 g/dL (13.0-16.5); Lymphocyte # 1.86 X10^3/ul (0.83-4.51); Lymphocyte % 24.9 % (19-41); Mean Corpuscular Hgb 30.7 pg (27.0-32.0); Mean Platelet Vol. 10.4 fl (6.2-12.0); Monocyte# 1.12 X10^3/uL; NRBC Flagged by Analyzer 0 % (0-5); Neutrophil # 4.22 X10^3/uL (2.7-7.7); Neutrophil % 56.4 % (47-70); Platelet Count 224 K/mm3 (150-450); RBC Distribution Width CV 13.4 % (11.6-14.6); RBC Distribution Width SD 47.8 fl (35.1-43.9); Red Blood Count 3.78 M/mm3 (4.6-6.2); White Blood Count 7.5 K/mm3 (4.4-11.0)
[2023-08-14 10:41] LABS: Prothrombin Time (Protime)PT. 23.1 SECONDS (11.7-14.9)
[2023-08-14 11:01] LABS: ALB/GLOB Ratio 0.9 RATIO (0.9-2.4); AST(SGOT) 27 U/L (15-37); Alanine Aminotransfer ALT/SGPT 26 U/L (16-61); Albumin, Serum 3.4 g/dL (3.2-5.0); Alkaline Phosphatase 60 U/L (45-117); Anion Gap 7 (5-15); BUN 24 mg/dL (7-18); BUN/Creat Ratio 18.2 RATIO (10-20); Calcium,Total 9.4 mg/dL (8.5-10.1); Chloride 102 mmol/L (98-107); Cholesterol 104 mg/dL (200); Creatinine, Serum 1.32 mg/dL (0.70-1.30); EST Glomerular Filtration Rate 55 mL/min (>60); Est Glom Filt Rate - Afr Amer 66 mL/min (>60); Ferritin 524 ng/mL (26-388); Globulin 3.9 g/dL (2.2-4.2); Glucose 102 mg/dL (74-106); High Density Lipoprotein 48 mg/dL; Protein, Total 7.3 g/dL (6.4-8.2); Sodium Level 135 mmol/L (136-145); Triglycerides 121 mg/dL; Very Low Density Lipoprotein 24 mg/dL (5-40)
== END | disposition home or self-care (01) ==
PROVIDERS: PCP Family Medicine; Referring Provider Family Medicine; Visit Provider Family Medicine
DX: N18.2 Chronic kidney disease, stage 2 (mild) (principal); I25.10 Atherosclerotic heart disease of native coronary artery without angina pectoris; Z79.01 Long term (current) use of anticoagulants; Z86.718 Personal history of other venous thrombosis and embolism
CPT/HCPCS: 36415; 80053; 80061; 82728; 85025; 85610

== ENCOUNTER → 2023-09-15 | Outpatient (CLI) | payer MEDICARE, SELFPAY ==
[2023-09-15 17:27] LABS: Color, Urine Yellow (Yellow); Glucose, Dipstick Normal (Normal); Ketone-Dipstick Negative (Negative); Leukocyte Esterase-Dipstick Negative /ul (Negative); Nitrite-Dipstick Negative (Negative); Occult Blood-Urine 10 /ul (Negative); Protein-Dipstick Negative (Negative); Specific Gravity, Urine 1.005 (1.002-1.030); Urine Bilirubin Dipstick Negative (Negative); Urine Clarity Clear (Clear); Urine Urobilinogen Normal (Normal)
[2023-09-15 17:50] LABS: Microalbumin,Random Urine 6.6 mg/L (NO RANGE EST.); Microalbumin:Creatinine Ratio 31.8 mg/g CRE (<30 mg/g CRE)
== END | disposition home or self-care (01) ==
LOC: MTLAB 14:21
PROVIDERS: PCP Family Medicine; Referring Provider Family Medicine; Visit Provider Family Medicine
DX: I10 Essential (primary) hypertension (principal)
CPT/HCPCS: 81002; 82043; 82570

== ENCOUNTER → 2023-12-14 | Outpatient (CLI) | payer MEDICARE, SELFPAY ==
[2023-12-14 17:51] LABS: Absolute Neutrophil Count 4.8 X10^3/uL (2.0-7.7); Basophil# 0.07 X10^3/uL; Eosinophil# 0.09 X10^3/uL; Eosinophils% 1.3 % (0-5); Hematocrit 35.6 % (40-54); Hemoglobin 11.6 g/dL (13.0-16.5); Lymphocyte % 15.6 % (19-41); Mean Corp Hgb Conc 32.6 g/dL (32-36); Mean Corpuscular Hgb 30.9 pg (27.0-32.0); Mean Corpuscular Volume 94.7 fL (80-94); Mean Platelet Vol. 10.7 fl (6.2-12.0); Monocyte# 0.93 X10^3/uL; Monocyte% 13.2 % (0-10); NRBC Flagged by Analyzer 0 % (0-5); Neutrophil # 4.83 X10^3/uL (2.7-7.7); Neutrophil % 68.5 % (47-70); Platelet Count 203 K/mm3 (150-450); RBC Distribution Width SD 45.1 fl (35.1-43.9); Red Blood Count 3.76 M/mm3 (4.6-6.2); White Blood Count 7.1 K/mm3 (4.4-11.0)
[2023-12-14 18:23] LABS: International Normalized Ratio 1.9; Prothrombin Time (Protime)PT. 22.1 SECONDS (11.7-14.9)
--- OUTSIDE RECORDS SUMMARY | 2023-12-14 18:29 | XMS RPT_ITS | CCD ---
Author Name Unknown Address [address] [place] [address] Organization [facility] Care Team Providers Care Workplace Rehabilitation Officer Name Role Phone Unavailable Primary Care Provider Unavailabl e Allergies Allergy Classification Reported Allergen(s) Allergy Type Date of Onset Reaction(s) Facility (2 sources) Naproxen; Translations: [NAPROXEN] Drug Allergy 08-25-2009 [facility] Medications Current Medications Medication Drug Class(es) Dates Sig (Normalized) Sig (Original) benzonatate 100 mg oral capsule (1 source) Non-narcotic Antitussive Start: 03-04-2023 End: 03-14-2023 take 2 capsules by mouth three times daily as needed benzonatate (TESSALON PERLE) 100 mg capsule Indications: Viral illness Take 2 capsules by mouth three times daily as needed for up to 10 days. 60 capsule 0 03/04/2023 03/14/2023 Active Completed/Discontinued Medications Medication Drug Class(es) Dates Sig (Normalized) Sig (Original) amLODIPine 10 mg oral tablet (1 source) Dihydropyridine Calcium Channel Don Start: 02-17-2016 take 1 tablet by mouth once daily amLODIPine (NORVASC) 10 mg tablet Take 10 mg by mouth once daily. 0 02/17/2016 Active Problems Active Problems Problem Classification Problem Date Documented Date Episodic/Chronic Aortic; peripheral; and visceral artery aneurysms (1 source) Aortic aneurysm; Translations: [Aortic aneurysm of unspecified site, without rupture] Onset: 03-04-2010 03-04-2010 Chronic Cataract (1 source) Cataract; Translations: [Unspecified cataract] Onset: 02-18-2011 10-18-2021 Chronic Chronic kidney disease (1 source) Chronic kidney disease stage 3; Translations: [Chronic kidney disease, stage III (moderate)] Onset: 06-26-2013 06-26-2013 Chronic Coronary atherosclerosis and other heart disease (1 source) Coronary arteriosclerosis; Translations: [Atherosclerotic heart disease of [place] coronary artery without angina pectoris] Onset: 03-04-2010 03-04-2010 Chronic Disorders of lipid metabolism (1 source) Hyperlipidemia; Translations: [Hyperlipidemia, unspecified] Onset: 02-18-2011 02-18-2011 Chronic Esophageal disorders (1 source) Gastroesophageal reflux disease; Translations: [Gastro-esophageal reflux disease without esophagitis] Onset: 02-18-2011 10-18-2021 Chronic Essential hypertension (1 source) Hypertensive disorder; Translations: [Essential (primary) hypertension] Onset: 03-04-2010 03-04-2010 Chronic Nutritional deficiencies (1 source) Vitamin D deficiency; Translations: [Vitamin D deficiency, unspecified] Onset: 02-18-2011 02-18-2011 Chronic Past or Other Problems Problem Classification Problem Date Documented Da te Episodic/Chronic Deficiency and other anemia (1 source) Anemia; Translations: [Anemia, unspecified] Onset: 06-28-2012 06-28-2012 Episodic Esophageal disorders (1 source) Esophagitis; Translations: [Esophagitis, unspecified] Onset: 06-28-2012 06-28-2012 Episodic Gastritis and duodenitis (1 source) Acute gastritis; Translations: [Acute gastritis without bleeding] Onset: 06-28-2012 06-28-2012 Episodic Results Test Name Value Interpretation Reference Range Facil ity Encounters Encounter Date Encounter Type Care Provider Facility Start: 03-05-2023 Telephone encounter Lety Reese APRN.CNP Work Phone: [facility] Plan of Treatment Date Care Activity Detail Author Start: 06-23-2023 Influenza vaccination INFLUENZA (Sea son Ended) [facility] Start: 10-23-2022 ADVANCE DIRECTIVE DISCUSSION ADVANCE DIRECTIVE DISCUSSION [facility] Start: 10-23-2022 DEPRESSION ASSESSMENT DEPRESSION ASS ESSMENT [facility] Start: 03-09-2020 DIABETES SCREEN DIABETES SCREEN [facility] Start: 10-23-2018 Urine microalbumin profile DTA P,TDAP,TD (2 - Td or Tdap) [facility] Start: 03-14-2018 Hepatitis B surface antibody level LDL CHOLESTEROL [facility] Start: 07-23-2011 PNEUMOCOCCAL: 65+ (2 - PCV) PNEUMOCOCCAL: 65+ (2 - PCV) [facility] Start: 1987 SHINGRIX VACCINE (1 of 2) JEWELL GRIX VACCINE (1 of 2) [facility] Start: 05-28-1936 COVID-19 VACCINE (#1) COVID-19 VACCI NE (#1) [facility] Immunizations Immunization Date Immunization Notes Care Provider Kamlesh redcinthia 07-23-2010 influenza virus vacc ine, unspecified formulation Lety Renee GRINDER SET UP OPERATOR SURFACE.PERISHABLE FRUIT INSPECTOR Work Phone: [facility] 07-23-2010 pneumococcal polysaccharide vaccine, 23 valent Lety Renee GRINDER SET UP OPERATOR SURFACE.PERISHABLE FRUIT INSPECTOR Work Phone: [facility] 10-23-2008 tetanus toxoid, redu sammie diphtheria toxoid, and acellular pertussis vaccine, adsorbed Lety Renee GRINDER SET UP OPERATOR SURFACE.PERISHABLE FRUIT INSPECTOR Work Phone: [facility] Payers Date Payer Category Payer Medicare [employer] MEDICARE A ETNA MEDICARE PPO [id number] 2021-Present [phone] [address] [place] [address] PPO [id number] 2021 Medicare [id number] Social History Date Type Detail Facility Start: [facility]04[facility]23 [facility] End: 10-23-1955 History of tobacco use Current smoker [facility] End: [birth year]-23-1955 History of tobacco use Cigarette Smoker [facility] History of tobacco use Pipe Smoker [facility] History of tobacco use Cigar Smoker [facility] Start: 03-04-2023 Cigarettes smoked cu rrent (pack per day) - Reported 0.3 [facility] Start: 03-04-2023 Tobacco use and exposure Smoke less tobacco non-user [facility] Start: 03-04-2023 Alcohol intake 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 [facility] Start: 1935 Sex Assigned At Not on file [facility] Note 05-14-2023 Telephone Encounter - Kristen Hawkins MA - 03/05/2023 10:35 AM EDTTelephone Encounter - Kristen Hawkins MA - 03/05/2023 10:33 AM EDT Note Date & Type Note Facility 03-05-2023 Miscellaneous Notes Formattin g of this note might be different from the original. Pt was notified of the results. Pt verbalized understanding. Kristen Hawkins MA ----- Message from Lety Renee APRN.PERISHABLE FRUIT INSPECTOR sent at 03/05/2023 8:14 AM EDT ----- I attempted to reach patient to advise of positive COVID test result. No answer, left message. If patient returns call, May be advised of positive test result and The CDC recommends that people refrain from work and isolate themselves until the following criteria are met: At least 24 hours have passed since last fever without the use of fever-reducing medications Other symptoms have improved At least 5 days have passed since symptoms first appeared He may be interested in taking anti-viral medication for COVID. He may discuss this with a provider. Lety Renee APRN.PERISHABLE FRUIT INSPECTOR documented in this encounter [facility] Progress note 03-04-2023 Note Date & Type Note Facility 03-04-2023 Note HNO ID: [id number] Author: Lety Renee APRN.PERISHABLE FRUIT INSPECTOR Service: ? Author Type: Nurse Practitioner Type: Progress Notes Filed: 03/04/2023 2:45 PM Note Text: Subjective Cough Pertinent negatives include no chest pain, no ear pain, no headaches, no sore throat, no myalgias and no shortness of breath. Kapil Reed is a 87 year old male who presents with a runny nose and a cough. This started last night. He has not had a fever. He denies any known sick contacts. He took an ambien last night so he could sleep. He feels tired today. He denies any pain. Review of Systems Constitutional: Negative for fever. HENT: Positive for congestion. Negative for ear pain and sore throat. Respiratory: Positive for cough. Negative for shortness of breath. Cardiovascular: Negative for chest pain. Musculoskeletal: Negative for myalgias. Skin: Negative. Neurological: Negative for headaches. BP 122/60 Pulse 75 Temp 36.7 ?C (98 ?F) Resp 16 Wt 92.1 kg (203 lb) SpO2 97% BMI 29.13 kg/m? PAST MEDICAL HISTORY Diagnosis Date Anemia, unspecified BPH (benign prostatic hyperplasia) CAD (coronary artery disease) DVT (deep venous thrombosis) (HCC) 11/2007 Enlarged aorta (HCC) Esophagitis, unspecified Former smoker cigarette, pipe and cigar x 1 year HTN (hypertension) Other and unspecified hyperlipidemia PE (pulmonary embolism) 2009 left Pleurisy without mention of effusion or current tuberculosis 11/2010 Pleurisy Pneumonia 2010 Pulmonary embolus (HCC) Seizure (HCC) 2000 occured once only. Sleep disturbance, unspecified Varicella without mention of complication Chickenpox Whiplash 2008 PAST SURGICAL HISTORY Procedure Laterality Date COLONOSCOPY 2001 Dr. Giles Angulo COLONOSCOPY FLX DX W/COLLJ SPEC WHEN PFRMD 02/27/2012 Colonoscopy ESOPHAGOGASTRODUODENOSCOPY TRANSORAL DIAGNOSTIC 06/28/2012 EGD INGUINAL HERNIA REPAIR HX Bilateral PAST SURGICAL HISTORY OF hernia PERC TRANSL COR ANGIO 2008 Percutaneous Transluminal Coronary Angio Status TRANSV CAROTID STENT PLACEMT 11/28/07 Transv carotid stent placement UPPER ENDOSCOPY/EGD 2009 Dr. Ragsdale, patient reports normal ALLERGIES Naprosyn [Naproxen] MEDICATIONS warfarin (COUMADIN) 2 mg tablet 3 mg on Mon and Wed, 2 mg the rest of the days amLODIPine (NORVASC) 10 mg tablet Take 10 mg by mouth once daily. Flaxseed Oil 1,000 mg cap Take 1,000 mg by mouth once daily. metoprolol tartrate, short acting, (LOPRESSOR) 25 mg tablet Take 1 tablet by mouth twice daily. furosemide (LASIX) 20 mg tablet Take 1 tablet by mouth once daily. Garlic 1,000 mg cap Take 1 capsule by mouth once daily. cholecalciferol (VITAMIN D3) 50 mcg (2,000 unit) tablet Take 2,000 Units by mouth twice daily. losartan (COZAAR) 100 mg tablet Take 1 tablet by mouth once daily. tamsulosin (FLOMAX) 0.4 mg Take 1 capsule by mouth every other day. nitroglycerin sublingual 0.4 mg SL tablet Dissolve 1 tablet under the tongue as needed. FOR CHEST PAIN. IF NO RELIEF CALL 911 WARFARIN SODIUM (COUMADIN ORAL) Take 3 mg by mouth once daily. 3 mg on Mon and Mon, 2mg the rest of the days ASCORBIC ACID (VITAMIN C ORAL) Take 1,000 mg by mouth once daily. zolpidem (AMBIEN) 5 mg tablet Take 1 tablet by mouth at bedtime as needed. FOR INSOMNIA benzonatate (TESSALON PERLE) 100 mg capsule Take 2 capsules by mouth three times daily as needed for up to 10 days. Ferrous Sulfate 325 mg (65 mg iron) tablet Take 325 mg by mouth twice daily. (Patient not taking: Reported on 03/04/2023) Ascorbic Acid 100 mg tablet Take 100 mg by mouth once daily. (Patient not taking: Reported on 03/04/2023) EDEN ROOT (EDEN, ZINGIBER OFFICINALIS,) 550 mg cap Take by mouth. (Patient not taking: Reported on 03/04/2023) VITAMIN B COMPLEX NO.12-NIACIN ORAL Take by mouth. OTC PRODUCT Take 2 tablets Iron 28 mg daily omeprazole 20 mg capsule Take 1 capsule by mouth once daily. OTC PRODUCT Flaxseed Oil 100 mg capsule once daily OTC PRODUCT Vitamin B12 1000 mcg once daily [place]-3 Fatty Acids 500 mg cap Take by mouth once daily. (Patient not taking: Reported on 03/04/2023) FAMILY HISTORY Problem Relation Age of Onset Cancer Mother pancreatic Stroke Father Social History Tobacco Use Smoking status: Former Packs/day: 0.30 Years: 1.00 Pack years: 0.30 Types: Cigarettes, Pipe, Cigars Quit date: 10/23/1957 Years since quittin.4 Smokeless tobacco: Never Tobacco comments: Pt smoked 1/4 pack daily for 1 year. Substance Use Topics Alcohol use: No Drug use: No Objective Physical Exam Vitals and nursing note reviewed. Constitutional: Appearance: Normal appearance. HENT: Right Ear: Tympanic membrane, ear canal and external ear normal. Left Ear: Tympanic membrane, ear canal and external ear normal. Nose: Nose normal. Mouth/Throat: Mouth: Mucous membranes are moist. Pharynx: Uvula midline. No oropharyngeal exudate or posterior oropharyngeal (more content not included)... [facility] History of Past illness Narrative 10-12-2012 Note Date & Type Note Facility documented as of this encounter (statuses as of 03/05/2023) [facility] Health Concerns Infection Onset Date Last Indicated Resolved Time COVID-19 Confirmed 03/04/2023 03/04/2023 Summary Purpose Family History No Family History Records Found Advance Directives No Advanced Directives Records Found Additional Source Comments Source Comments (unrecognize d section and content) In the event this informatio n is protected by the Federal Confidentiality of Alcohol and Drug Abuse Patient Records regulations: The Federal rules restrict any use of the information to criminally investigate or prosecute any alcohol or drug abuse patient.[facility] Reason for Visit (unrecogniz ed section and content) (unrecognized sect ion and content) No Status Records Found INFORMATION SOURCE (unrecogn ized section and content) FOR RECORDS PERTAINING TO PATIENTS WHO ARE OR HAVE BEEN ENROLLED IN A CHEMICAL DEPENDENCY/SUBSTANCEABUSE PROGRAM, SOME INFORMATION MAY BE OMITTED. This clinical summary was aggregated from multiple sources. Caution should be exercised in using it in the provision of clinical care. This summary normalizes information from multiple sources, and as a consequence, information in this document may materially change the coding, format and clinical context of patient data. In addition, data may be omitted in some cases. CLINICAL DECISIONS SHOULD BE BASED ON THE PRIMARY CLINICAL RECORDS. [employer] [facility]. provides no warranty or guarantee of the accuracy or completeness of information in this document.
[2023-12-14 18:43] LABS: ALB/GLOB Ratio 0.9 RATIO (0.9-2.4); AST(SGOT) 26 U/L (15-37); Alanine Aminotransfer ALT/SGPT 24 U/L (16-61); Albumin, Serum 3.7 g/dL (3.2-5.0); Alkaline Phosphatase 63 U/L (45-117); Anion Gap 7 (5-15); BUN 25 mg/dL (7-18); BUN/Creat Ratio 17.6 RATIO (10-20); Calcium,Total 9.7 mg/dL (8.5-10.1); Chloride 99 mmol/L (98-107); Creatinine, Serum 1.42 mg/dL (0.70-1.30); EST Glomerular Filtration Rate 50 mL/min (>60); Est Glom Filt Rate - Afr Amer 61 mL/min (>60); Globulin 3.9 g/dL (2.2-4.2); Glucose 107 mg/dL (74-106); PSA,Total - Annual Screen 1.55 ng/mL (0.00-4.00); Potassium 4.2 mmol/L (3.5-5.1); Protein, Total 7.6 g/dL (6.4-8.2); Sodium Level 133 mmol/L (136-145)
== END | disposition home or self-care (01) ==
LOC: MFPLAB 14:32
PROVIDERS: PCP Family Medicine; Visit Provider Family Medicine
DX: R30.0 Dysuria (principal); I48.91 Unspecified atrial fibrillation; N40.0 Benign prostatic hyperplasia without lower urinary tract symptoms; Z12.5 Encounter for screening for malignant neoplasm of prostate
CPT/HCPCS: 36415; 80053; 84153; 85025; 85610; G0103

== ENCOUNTER 2025-01-30 16:25 | Outpatient (CLI) | payer MEDICARE, SELFPAY ==
[2025-01-30 18:01] LABS: Absolute Lymphocyte Count 1.28 X10^3/uL (0.83-4.51); Basophil# 0.05 X10^3/uL; Basophil% 0.7 % (0-1); Eosinophil# 0.08 X10^3/uL; Eosinophils% 1.1 % (0-5); Hematocrit 33.9 % (40-54); Hemoglobin 11.4 g/dL (13.0-16.5); Lymphocyte # 1.28 X10^3/ul (0.83-4.51); Lymphocyte % 16.8 % (19-41); Mean Corp Hgb Conc 33.6 g/dL (32-36); Mean Corpuscular Hgb 31.7 pg (27.0-32.0); Mean Corpuscular Volume 94.2 fL (80-94); Mean Platelet Vol. 10.5 fl (6.2-12.0); Monocyte# 1.14 X10^3/uL; NRBC Flagged by Analyzer 0 % (0-5); Neutrophil # 5.02 X10^3/uL (2.7-7.7); Platelet Count 201 K/mm3 (150-450); RBC Distribution Width CV 13.1 % (11.6-14.6); RBC Distribution Width SD 45.1 fl (35.1-43.9); RET-HE 34.1 pg (30-35); Reticulocyte Count 1.75 % (0.5-1.5); White Blood Count 7.6 K/mm3 (4.4-11.0)
[2025-01-30 18:16] LABS: Erythrocyte Sedimentation Rate 31 mm/hr (0-20)
[2025-01-30 18:17] LABS: ALB/GLOB Ratio 1.3 RATIO (0.9-2.4); AST(SGOT) 48 U/L (<=37); Alanine Aminotransfer ALT/SGPT 21 U/L (<=46); Albumin, Serum 4.2 g/dL (3.4-4.8); Alkaline Phosphatase 56 U/L (40-129); Anion Gap 13 (5-15); BUN 24 mg/dL (4-19); BUN/Creat Ratio 17.2 RATIO (10-20); CRP 3.84 mg/L (0.0-3.0); Calcium,Total 9.8 mg/dL (7.6-11.0); Carbon Dioxide 22.6 mmol/L (21.0-32.0); Chloride 98 mmol/L (98-108); Creatinine, Serum 1.37 mg/dL (0.70-1.20); EST Glomerular Filtration Rate 50 (>60); Globulin 3.2 g/dL (2.2-4.2); Glucose 115 mg/dL (70-99); Potassium 4.4 mmol/L (3.3-5.1); Protein, Total 7.3 g/dL (5.9-8.4); Sodium Level 133 mmol/L (133-145); Total Bilirubin 0.33 mg/dL (0.00-1.30)
== END 2025-01-30 23:59 | disposition home or self-care (01) ==
LOC: MFPLAB 16:26
PROVIDERS: PCP Family Medicine; Referring Provider Family Medicine; Visit Provider Family Medicine
DX: R53.83 Other fatigue (principal)
CPT/HCPCS: 36415; 80053; 84443; 85025; 85045; 85652; 86140

== ENCOUNTER 2025-05-08 14:17 | Outpatient (CLI) | payer MEDICARE, SELFPAY ==
[2025-05-08 18:52] LABS: AST(SGOT) 30 U/L (<=37); Alanine Aminotransfer ALT/SGPT 16 U/L (<=46); Albumin, Serum 4.1 g/dL (3.4-4.8); Alkaline Phosphatase 61 U/L (40-129); Anion Gap 13 (5-15); BUN 20 mg/dL (4-19); BUN/Creat Ratio 16.8 RATIO (10-20); Calcium,Total 9.8 mg/dL (7.6-11.0); Carbon Dioxide 24.0 mmol/L (21.0-32.0); Chloride 93 mmol/L (98-108); Globulin 3.0 g/dL (2.2-4.2); Glucose 157 mg/dL (70-99); PSA,Total - Annual Screen 1.27 ng/mL (0.02-4.00); Potassium 4.1 mmol/L (3.3-5.1)
== END 2025-05-08 23:59 | disposition home or self-care (01) ==
LOC: MFPLAB 14:18
PROVIDERS: PCP Family Medicine; Referring Provider Family Medicine; Visit Provider Family Medicine
DX: Z00.00 Encounter for general adult medical examination without abnormal findings (principal); Z12.5 Encounter for screening for malignant neoplasm of prostate
CPT/HCPCS: 36415; 80053; 84153; G0103

== ENCOUNTER → 2025-05-14 | Outpatient (CLI) | payer MEDICARE, SELFPAY ==
[2025-05-14 11:14] LABS: Creatinine, Urine (random) 109.00 mg/dL (39.00-259.00); Microalbumin,Random Urine < 12.0 mg/L (<20 mg/L)
== END | disposition home or self-care (01) ==
LOC: LABSPEC 08:49
PROVIDERS: PCP Family Medicine; Referring Provider Family Medicine; Visit Provider Family Medicine
DX: I10 Essential (primary) hypertension (principal)
CPT/HCPCS: 82043; 82570

== ENCOUNTER → 2025-08-13 | Outpatient (CLI) | payer MEDICARE, SELFPAY ==
--- NOTE | 2025-08-13 10:27 | RAD_ITS ---
PROCEDURE: CLAVICLE 08/13/2025 REASON FOR EXAM: R LATERAL CLAVICLE 2.5 CM ROUND SWELLING CONSISTENT WITH GANGLION TECHNIQUE: Procedure Code: RADCL Modality: DX Procedure: CLAVICLE COMPARISON: None FINDINGS: There is soft tissue swelling superior to the right acromioclavicular joint, could be a ganglion cyst. There is no evidence of fracture or dislocation. The right sternoclavicular joint is unremarkable. 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 RAD/Clavicle IMPRESSION: Normal right clavicle. Soft tissue swelling over the AC joint consistent with a ganglion. Reading Location: [place] [address]
--- NOTE | 2025-08-13 10:27 | RAD_ITS ---
PROCEDURE: CLAVICLE 08/13/2025 REASON FOR EXAM: R LATERAL CLAVICLE 2.5 CM ROUND SWELLING CONSISTENT WITH GANGLION TECHNIQUE: Procedure Code: RADCL Modality: DX Procedure: CLAVICLE COMPARISON: None FINDINGS: There is soft tissue swelling superior to the right acromioclavicular joint, could be a ganglion cyst. There is no evidence of fracture or dislocation. The right sternoclavicular joint is unremarkable. 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 RAD/Clavicle IMPRESSION: Normal right clavicle. Soft tissue swelling over the AC joint consistent with a ganglion. Reading Location: [place] [address]
--- OUTSIDE RECORDS SUMMARY | 2025-08-13 10:50 | XMS RPT_ITS | CCD ---
Author Organization [facility] Care Team Providers Care Apiculture Teacher Name Role Phone Unavailable Primary Care Provider Rossy Britton MD, Dr. Nowak Primary Care Provider Tobi ELLIS, Dr. Nowak Attending Provider Dr. Eliu Britton MD Referring Provider Eliu Britton Primary Care Unavailable Eliu Britton Attending Unavailable Eliu Britton Referring Unavailable Eliu Britton Primary Care Unavailable Eliu Britton Attending Unavailable Eliu Britton Referring Unavailable Eliu Britton Attending Unavailable Eliu Britton Referring Unavailable Eliu Britton Primary Care Unavailable Allergies Allergy Classification Reported Allergen(s) Allergy Type Date of Onset Reaction(s) Facility (11 sources) Naproxen; Translations: [NAPROXEN] Drug Allergy 08-25-2009 Other [facility] (1 source) Naproxen Drug Allergy 10-29-2019 [facility] Repository Medications Current Medications Medication Drug Class(es) Dates Sig (Normalized) Sig (Original) acetaminophen 325 mg oral tablet (9 sources) Start: 10-15-2019 take 1-1 tablets by mouth every six hours as needed for pain Acetaminophen 325 MG tablet Active 650 mg PO EVERY 6 HOURS NEEDED as needed for Pain SCALE 1-10/10 or Fever 0 October 15, 2019 1:00am Start: 10-15-2019 take 650 mg by mouth every six hours as needed Acetaminophen Active 650 MG PO EVERY 6 HOURS NEEDED October 15, 2019 12:00am amLODIPine 10 mg oral tablet (10 sources) Dihydropyridine Calcium Channel Don Start: 02-17-2016 take 1 tablet by mouth once daily Amlodipine 10 MG tablet Active 10 mg PO DAILY July 15, 2017 12:00am HTN Comment on above: Take 10 mg by mouth once daily. ascorbic acid 1000 mg oral tablet (11 sources) Vitamin C Start: 07-15-2017 take 1 tablet by mouth once daily Ascorbic Acid (Vitamin C) 1,000 MG tablet Active 1000 mg PO DAILY July 15, 2017 12:00am supplement take 1 tablet by mouth once aarti y Ascorbic Acid 100 mg tablet Take 100 mg by mouth once daily. 0 Active Comment on above: Take 1,000 mg by sami th once daily. Take 100 mg by mouth once daily. benzonatate 100 mg oral capsule (1 source) Non-narcotic Antitussive Start: End: 023 take 2 capsules by mouth three times daily as needed benzonatate (TESSALON PERLE) 100 mg capsule Indications: Viral illness Take 2 capsules by mouth three times daily as needed for up to 10 days. 60 capsule 0 03/04/2023 03/14/2023 Active Comment on above: Take 2 capsules by [facility] three times daily as needed for up to 10 days. cholecalciferol 0.025 mg oral capsule (10 sources) Vitamin D Start: 017 take 1 capsule by mouth once daily Cholecalciferol (Vitamin D3) 1,000 UNIT capsule Active 1000 U PO DAILY July 15, 2017 12:00am supplement take 1 tablet by mouth twice alisa ly cholecalciferol (VITAMIN D3) 50 mcg (2,000 unit) tablet Take 2,000 Units by mouth twice daily. 0 Active Comment on above: Take 2,000 Units by mouth twice daily. furosemide 20 mg oral tablet (10 sources) Loop Diuretic Start: 01-21-2015 take 1 tablet by mouth once daily Furosemide 20 MG tablet Active 20 mg PO DAILY July 15, 2017 12:00am diuretic Comment on above: Take 1 tablet by sami once daily. Garlic (10 sources) Non-Standardized Food Allergenic Extract Start: 07-15-2017 take 1000 mg by mouth once daily Garlic Active 1000 MG PO DAILY July 15, 2017 4:15am Start: 07-15-2017 take 1 capsule by mo ut once daily Garlic 1,000 MG capsule Active 1000 mg PO DAILY July 15, 2017 12:00am supplement Start: 07-15-2017 take 1 capsule by mo uth once daily Garlic 1,000 MG capsule Active 1000 mg PO DAILY July 15, 2017 12:00am Start: 07-15-2017 take 1000 mg by mouth once alisa ly Garlic Active 1000 MG PO DAILY July 14, 2017 11:00pm Start: 07-15-2017 take 1000 mg by mouth once alisa ly Garlic Active 1000 MG PO DAILY July 15, 2017 12:00am take 1 capsule by mo ut once daily Garlic 1,000 mg cap Take 1 capsule by mouth once daily. 0 Active Comment on above: Take 1 capsule by mo [facility] once daily. Whnbtqjpwyuj-T0-L6-B12 (6 sources) Start: 07-15-2017 Upiddeecwofv-J9-H4-B12 Active 1 EACH PO DAILY July 15, 2017 3:59am Start: 07-15-2017 Levomefolate-B 2-B6-B12 Active 1 EACH PO DAILY July 14, 2017 11:00pm Start: 07-15-2017 Levomefolate-B 2-B6-B12 Active 1 EACH PO DAILY July 15, 2017 12:00am Cmibmajqonys-V2-L4-B12 1 EAC H tablet (3 sources) Start: 07-15-2017 Levomefolate-B 2-B6-B12 1 EACH tablet Active 1 NMA PO DAILY July 15, 2017 12:00am supplement Start: 07-15-2017 Levomefolate-B 2-B6-B12 1 EACH tablet Active 1 NMA PO DAILY July 15, 2017 12:00am linseed oil 1000 mg oral capsule (10 sources) Start: 07-15-2017 take 1 capsule by mouth once daily Flaxseed Oil 1,000 MG capsule Active 1000 mg PO DAILY July 15, 2017 12:00am supplment Comment on above: Take 1,000 mg by sami once daily. metoprolol tartrate 25 mg oral tablet (10 sources) beta-Adrenergic Don Start: 11-24-2015 take 1 tablet by mouth twice daily Metoprolol Tartrate 25 MG tablet Active 25 mg PO TWICE A DAY July 15, 2017 12:00am HTN Comment on above: Take 1 tablet by sami th twice daily. predniSONE 10 mg oral tablet (9 sources) Start: 10-10-2019 take 1 tablet by mouth once daily Prednisone 10 MG tablet Active 10 mg PO DAILY October 10, 2019 1:00am pain rosuvastatin calcium 5 mg oral tablet (9 sources) HMG-CoA Reductase Inhibitor Start: 10-10-2019 take 1 tablet by mouth once daily Rosuvastatin 5 MG tablet Active 5 mg PO DAILY October 10, 2019 1:00am tamsulosin hydrochloride 0.4 mg oral capsule (10 sources) alpha-Adrenergic Don Start: 07-15-2017 take 1 capsule by mouth once daily Tamsulosin 0.4 MG capsule Active 0.4 mg PO DAILY July 15, 2017 12:00am BPH Start: 01-24-2013 take 1 capsule by mo ut every other day tamsulosin (FLOMAX) 0.4 mg Take 1 capsule by mouth every other day. 0 01/24/2013 Active Comment on above: Take 1 capsule by mo [facility] every other day. Completed/Discontinued Medications Medication Drug Class(es) Dates Sig (Normalized) Sig (Original) acetaminophen 325 mg / HYDROcodone bitartrate 5 mg oral tablet (9 sources) Opioid Agonist Start: 10-15-2019 End: 10-22-2019 Hydrocodone-Acetami nophen 1 TABLET tablet Discontinued 1 {tbl} PO EVERY 4 HOURS NEEDED as needed for Pain 15 7 0 October 15, 2019 October 21, 2019 1:00am October 22, 2019 1:08am Small bowel obstruction Start: 10-15-2019 End: 10-22-2019 take 1 tablet by mouth every four hours as needed Hydrocodone-Acetaminophen Discontinued 1 TABLET PO EVERY 4 HOURS NEEDED 15 7 October 15, 2019 October 22, 2019 12:08am ferrous sulfate 325 mg oral tablet (1 source) take 1 tablet by mouth twice daily Ferrous Sulfate 325 mg (65 mg iron) tablet Take 325 mg by mouth twice daily. 0 Active Comment on above: Take 325 mg by mouth twice daily. Fish Oils (9 sources) Start: 07-15-2017 End: 10-15-2019 take 1 capsule by mouth once daily Fish Oil 1,000 mg Capsule Discontinued 1000 MG PO DAILY July 15, 2017 3:58am October 15, 2019 7:07pm Start: 07-15-2017 End: 10-15-2019 take 1 capsule by mouth once daily Fish Oil 1,000 mg Capsule Discontinued 1000 mg PO DAILY July 15, 2017 12:00am October 15, 2019 7:07pm supplement Start: 07-15-2017 End: 10-15-2019 take 1 capsule by mouth once daily Fish Oil 1,000 mg Capsule Discontinued 1000 mg PO DAILY July 15, 2017 12:00am October 15, 2019 7:07pm Start: 07-15-2017 End: 10-15-2019 take 1 capsule by mouth once daily Fish Oil 1,000 mg Capsule Discontinued 1000 MG PO DAILY July 14, 2017 11:00pm October 15, 2019 6:07pm Start: 07-15-2017 End: 10-15-2019 take 1 capsule by mouth once daily Fish Oil 1,000 mg Capsule Discontinued 1000 MG PO DAILY July 15, 2017 12:00am October 15, 2019 7:07pm eliceo root 550 mg oral capsule (1 source) ELICEO ROOT (GIN JAYLYN, ZINGIBER OFFICINALIS,) 550 mg cap Take by mouth. 0 Active Comment on above: Take by mouth. losartan potassium 100 mg oral tablet (1 source) Angiotensin 2 Receptor Don Start: 01-25-20 13 take 1 tablet by mouth once daily losartan (COZAAR) 100 mg tablet Take 1 tablet by mouth once daily. 0 01/24/2013 Active Comment on above: Take 1 tablet by sami once daily. lovastatin 40 mg oral tablet (9 sources) HMG-CoA Reductase Inhibitor Start: 07-15-20 17 End: 10-15-20 19 take 1 tablet by mouth at bedtime Lovastatin (Mevacor) 40 MG tablet Discontinued 40 mg PO AT BEDTIME July 15, 2017 12:00am October 15, 2019 7:07pm cholesterol nitroglycerin 0.4 mg sublingual tablet (1 source) Nitrate Vasodilator Start: 01-15-20 13 nitroglycerin sublingual 0.4 mg SL tablet Dissolve 1 tablet under the tongue as needed. FOR CHEST PAIN. IF NO RELIEF CALL 911 25 tablet 5 01/14/2013 Active Comment on above: Dissolve 1 tablet un deepti the tongue as needed. FOR CHEST PAIN. IF NO RELIEF CALL 911 [place]-3 Fatty Acids 500 mg cap (1 source) Start: 06-09-20 11 [place]-3 Fatty Acids 500 mg cap Take by mouth once daily. 0 06/09/2011 Active Comment on above: Take by mouth once d aily. omeprazole 20 mg delayed release oral capsule (1 source) Proton Pump Inhibitor Start: 05-15-20 13 take 1 capsule by mouth once daily omeprazole 20 mg capsule Take 1 capsule by mouth once daily. 30 capsule 2 05/15/2013 Active Comment on above: Take 1 capsule by mo [facility] once daily. OTC PRODUCT (3 sources) Start: 06-26-20 13 OTC PRODUCT Take 2 tablets Iron 28 mg daily 0 06/26/2013 Active Start: 01-24-2013 OTC PRODUCT Fl axseed Oil 100 mg capsule once daily 0 01/24/2013 Active Start: 01-24-2013 OTC PRODUCT Vi tamin B12 1000 mcg once daily 0 01/24/2013 Active Comment on above: Flaxseed Oil 100 mg capsule once daily Vitamin B12 1000 mcg once daily Take 2 tablets Iron 28 mg daily spironolactone 25 mg oral tablet (9 sources) Aldosterone Antagonist Start: 07-15-20 17 End: 10-15-20 19 take 1 tablet by mouth once daily Spironolactone 25 MG tablet Discontinued 25 mg PO DAILY July 15, 2017 12:00am October 15, 2019 7:06pm diuretic VITAMIN B COMPLEX NO.12-NIACIN ORAL (1 source) VITAMIN B COMPLE X NO.12-NIACIN ORAL Take by mouth. 0 Active Comment on above: Take by mouth. warfarin sodium 2 mg oral tablet (20 sources) Vitamin K Antagonist Start: 01-26-20 warfarin (COUMADIN) 2 mg tablet 3 mg on Mon and Mon, 2 mg the rest of the days 0 01/25/2023 Active Start: 10-11-2019 take 1 tablet by mouth once Wa rfarin 2 MG tablet Active 2 mg PO every Monday, , , MonOctober 11, 2019 1:00am blood thinner Start: 07-15-2017 Warfarin 3 MG tablet Active 3 mg PO MOWEJuly 15, 2017 12:00am blood thinner Comment on above: Take 3 mg by mouth o nce daily. 3 mg on Mon and Mon, 2mg the rest of the days 3 mg on Mon and Mon, 2 mg the rest of the days zolpidem tartrate 5 mg oral tablet (1 source) gamma-Aminobutyric Acid-ergic Agonist Start: 04-02-2012 take 1 tablet by mouth every twenty-four hours as needed zolpidem (AMBIEN) 5 mg tablet Take 1 tablet by mouth at bedtime as needed. FOR INSOMNIA 30 tablet 5 04/02/2012 Active Comment on above: Take 1 tablet by sami th at bedtime as needed. FOR INSOMNIA Problems Active Problems Problem Classification Problem Date [...] Coronary arteriosclerosis; Translations: [Atherosclerotic heart disease of [place] coronary artery without angina pectoris] Onset: 03-04-2010 03-04-2010 Chronic Disorders of lipid metabolism (1 source) Hyperlipidemia; Translations: [Hyperlipidemia, unspecified] Onset: 02-18-2011 02-18-2011 Chronic Esophageal disorders (1 source) Gastroesophageal reflux disease; Translations: [Gastro-esophageal reflux disease without esophagitis] Onset: 02-18-2011 10-18-2021 Chronic Essential hypertension (2 sources) Hypertensive disorder; Translations: [Essential (primary) hypertension] Onset: 03-04-2010 03-04-2010 Chronic Intestinal obstruction without hernia (9 sources) Small bowel obstruction; Translations: [Unspecified intestinal obstruction, unspecified as to partial versus complete obstruction] 10-11-2019 Episodic Nutritional deficiencies (1 source) Vitamin D deficiency; Translations: [Vitamin D deficiency, unspecified] Onset: 02-18-2011 02-18-2011 Chronic Residual codes; unclassified (9 sources) History of laparoscopy; Translations: [Other specified postprocedural states] 10-29-2019 Episodic Comment on above: Lysis of adhesions r elease of partial small bowel obstruction Sprains and strains (9 sources) Strain of neck muscle; Translations: [Strain of muscle, fascia and tendon at neck level, initial encounter] 10-02-2016 Episodic Past or Other Problems Problem Classification Problem Date Documented Da te Episodic/Chronic Deficiency and other anemia (1 source) Anemia; Translations: [Anemia, unspecified] Onset: 06-28-2012 06-28-2012 Episodic Esophageal disorders (1 source) Esophagitis; Translations: [Esophagitis, unspecified] Onset: 06-28-2012 06-28-2012 Episodic Gastritis and duodenitis (1 source) Acute gastritis; Translations: [Acute gastritis without bleeding] Onset: 06-28-2012 06-28-2012 Episodic Malaise and fatigue (1 source) Other fatigue; Translations: [Other fatigue] Onset: 02-12-2025 Episodic Results Test Name Value Interpretation Reference Range Facility Microalb:Creat Ratio,Random URon 05-14-2025 Creatinine [Mass/Vol] 109.00 mg/dL Normal 39.00-259.00 [facility] Comment on above: Performed By: #### L 502.0250 #### [facility] [address] [place] [id number] MALB:CREAT UNABLE TO CALCULATE Normal <30 mg/g CRE [facility] Comment on above: Performed By: #### L 502.0250 #### [facility] [address] [place], [place], [id number] MICROALBUMIN,UR < 12.0 Normal <20 mg/L [facility] Comment on above: Performed By: #### L 502.0250 #### [facility] [address] [place] [id number] Microalbumin/creat ratio urO rdered By: Eliu Britton on 05-14-2025 Urine microalbumin/creatinine ratio measurement UNABLE TO CALCULATE mg/g CRE <30 [facility] Random urine creatinine nia urement (mass/volume)Ordered By: Eliu Britton on 05-14-2025 Creatinine Unsp time (U) [Mass/Vol] 109.00 mg/dL 39.00-259.00 [facility] Urine albumin measurement [facility] detection limit of 20 mg/L or less (mass/volume)Ordered By: Eliu Britton on 05-14-2025 Albumin DL <= 20 mg/L (U) [Mass/Vol] < 12.0 mg/L <20 mg/L [facility] Anion gap in Serum or Plasma Ordered By: Eliu Britton on 05-08-2025 Anion gap [Moles/Vol] 13 mmol/L 5-[address] [facility] BUN/creatinine ratioOrdered By: Eliu Britton on 05-08-2025 Urea nitrogen/Creatinine [Mass ratio] 16.8 mg/mg 10-20 [facility] Bilirubin, totalOrdered By: Eliu Britton on 05-08-2025 Bilirubin [Mass/Vol] 0.52 mg/dL 0.00-1.30 [facility] Carbon dioxide, total [Moles /volume] in Central venous bloodOrdered By: Eliu Britton on 05-08-2025 CO2 [Moles/Vol] 24.0 mmol/L 21.0-32.0 [facility] Chloride assayOrdered By: Kwesi Britton on 05-08-2025 Chloride [Moles/Vol] 93 mmol/L Low 98-108 [facility] Comprehensive Metabolic Prof ilon 05-08-2025 Albumin [Mass/Vol] 4.1 g/dL Normal 3.4-4.8 [facility] Comment on above: Performed By: #### L 502.0250, L501.9910, [id number] #### [facility] [address] [place], [address] Albumin/Globulin [Mass ratio] 1.3 {ratio} Normal 0.9-2.4 [facility] Comment on above: Performed By: #### L 502.0250, [id number], [id number] #### [facility] [address] [place], [address] ALK PHOS 61 U/L Normal 40-129 [facility] Comment on above: Performed By: #### L [id number], [id number], [id number] #### [facility] [address] [place], [address] ALT [Catalytic activity/Vol] 16 U/L Normal <=46 [facility] Comment on above: Performed By: #### L 502.0250, [id number], [id number] #### [facility] [address] [place], [address] AST [Catalytic activity/Vol] 30 U/L Normal <=37 [facility] Comment on above: Performed By: #### L 502.0250, [id number], [id number] #### [facility] [address] [place], [address] Bilirubin [Mass/Vol] 0.52 mg/dL Normal 0.00-1.30 [facility] Comment on above: Performed By: #### L 502.0250, [id number], [id number] #### [facility] [address] [place], [address] BUN/CRE 16.8 RATIO Normal 10-20 [facility] Comment on above: Performed By: #### L 502.0250, [id number], [id number] #### [facility] [address] [place], [address] Calcium [Mass/Vol] 9.8 mg/dL Normal 7.6-11.0 [facility] Comment on above: Performed By: #### L 502.0250, [id number], [id number] #### [facility] [address] [place], [address] Chloride [Moles/Vol] 93 mmol/L Low 98-108 [facility] Comment on above: Performed By: #### L 502.0250, [id number], [id number] #### [facility] [address] [place], [address] CO2 [Moles/Vol] 24.0 mmol/L Normal 21.0-32.0 [facility] Comment on above: Performed By: #### L 502.0250, [id number], [id number] #### [facility] [address] [place], [address] Creatinine [Mass/Vol] 1.18 mg/dL Normal 0.70-1.[address] [facility] Comment on above: Performed By: #### L 502.0250, [id number], [id number] #### [facility] [address] [place], [address] GAP 13 Normal 5-15 [facility] Comment on above: Performed By: #### L 502.0250, [id number], [id number] #### [facility] [address] [place], [address] GFR/1.73 sq M.predicted among non-blacks MDRD (S/P/Bld) [Vol rate/Area] 60 mL/min/{1.73_m2} Normal >60 [facility] Comment on above: Result Comment: mL/m in/1.73m2 CKD-EPI Creatinine Equation (2020) Performed By: #### L 502.0250, [id number], [id number] #### [facility] [address] [place], [address] Globulin (S) [Mass/Vol] 3.0 g/dL Normal 2.2-4.2 [facility] Comment on above: Performed By: #### L 502.0250, [id number], [id number] #### [facility] [address] [place], [address] Glucose [Mass/Vol] 157 mg/dL High 70-99 [facility] Comment on above: Performed By: #### L 502.0250, [id number], [id number] #### [facility] [address] [place], [address] Potassium [Moles/Vol] 4.1 mmol/L Normal 3.3-5.[address] [facility] Comment on above: Performed By: #### L 502.0250, [id number], [id number] #### [facility] [address] [place], [address] Sodium [Moles/Vol] 130 mmol/L Low 133-145 [facility] Comment on above: Performed By: #### L 502.0250, [id number], [id number] #### [facility] [address] [place], [address] T PROT 7.1 g/dL Normal 5.9-8.4 [facility] Comment on above: Performed By: #### L 502.0250, [id number], [id number] #### [facility] [address] [place], [address] Urea nitrogen [Mass/Vol] 20 mg/dL High 4-19 [facility] Comment on above: Performed By: #### L 502.0250, [id number], [id number] #### [facility] [address] [place], [address] Glomerular filtration rate ( GFR) estimation/1.73 sq m using serum, plasma, or whole bOrdered By: Eliu Britton on 05-08-2025 GFR/1.73 sq M.predicted among non-blacks MDRD (S/P/Bld) [Vol rate/Area] 60 mL/min/{1.73_m2} >60 [facility] Comment on above: mL/min/1.73m2 CKD-EP I Creatinine Equation (2020) Laboratory - Chemistry and C hemistry - challengeOrdered By: Eliu Britton on 05-08-2025 AST [Catalytic activity/Vol] 30 U/L <38 [facility] Microalb:Creat Ratio,Random URon 05-08-2025 MALB:CREAT Normal <30 mg/g CRE [facility] Comment on above: Result Comment: UTO Performed By: #### L 502.0250, [id number], [id number] #### [facility] [address] [place], [address] MICROALBUMIN,UR Normal <20 mg/L [facility] Comment on above: Result Comment: UTO Performed By: #### L 502.0250, [id number], [id number] #### [facility] [address] [place], [address] UR CREAT Normal 39.00-259.00 [facility] Comment on above: Result Comment: UTO Performed By: #### L 502.0250, [id number], [id number] #### [facility] [address] [place], [address] PSA,Total - Annual Screenon 05-08-2025 PSA,TOT SCREEN 1.27 ng/mL Normal 0.02-4.00 [facility] Comment on above: Result Comment: This test was performed using the [employer] tPSA method. Measured values of a patient??sample can vary depending on the testing procedure used. PSA values determined on patient samples by different testing procedures cannot be used interchangeably. If there is a change in PSA assays while monitoring therapy, sequential testing should be performed to confirm baseline values. Performed By: #### L 502.0250, [id number], [id number] #### [facility] [address] [place], [address] Potassium measurement (mass/ volume)Ordered By: Eliu Britton on 05-08-2025 Potassium (Unsp spec) [Mass/Vol] 4.1 mmol/L 3.3-5.1 [facility] Serum creatinine measurement (mass/volume)Ordered By: Eliu Britton on 05-08-2025 Creatinine [Mass/Vol] 1.18 mg/dL 0.70-1.[address] [facility] Serum globulin measurementOr dered By: Eliu Britton on 05-08-2025 Globulin (S) [Mass/Vol] 3.0 g/dL 2.2-4.2 [facility] Serum glucose measurement (m ass/volume)Ordered By: Eliu Britton on 05-08-2025 Glucose [Mass/Vol] 157 mg/dL High 70-99 [facility] Serum or plasma alanine sinclair otransferase (ALT) measurementOrdered By: Eliu Britton on 05-08-2025 ALT [Catalytic activity/Vol] 16 U/L <47 [facility] Serum or plasma albumin nia urement (mass/volume)Ordered By: Eliu Britton on 05-08-2025 Albumin [Mass/Vol] 4.1 g/dL 3.4-4.8 [facility] Serum or plasma albumin/glob ulin mass ratioOrdered By: Eliu Britton on 05-08-2025 Albumin/Globulin [Mass ratio] 1.3 {ratio} 0.9-2.4 [facility] Serum or plasma alkaline yao sphatase measurementOrdered By: Eliu Britton on 05-08-2025 ALP [Catalytic activity/Vol] 61 U/L 40-129 [facility] Serum or plasma calcium nia urement (mass/volume)Ordered By: Eliu Britton on 05-08-2025 Calcium [Mass/Vol] 9.8 mg/dL 7.6-11.0 [facility] Serum or plasma urea nitroge n measurement (mass/volume)Ordered By: Eliu Britton on 05-08-2025 Urea nitrogen [Mass/Vol] 20 mg/dL High 4-19 [facility] Sodium levelOrdered By: Eliu Britton on 05-08-2025 Sodium [Moles/Vol] 130 mmol/L Low 133-145 [facility] Total proteinOrdered By: Ariella Britton on 05-08-2025 Protein [Mass/Vol] 7.1 g/dL 5.9-8.4 [facility] Absolute lymphocyte countOrd ered By: Eliu Britton on 01-30-2025 Lymphocytes Auto (Unsp spec) [#/Vol] 1.28 10*3/uL 0.83-4.51 [facility] Absolute neutrophil countOrd ered By: Eliu Britton on 01-30-2025 Neutrophils (Bld) [#/Vol] 5.0 10*3/uL 2.0-7.7 [facility] Anion gap in Serum or Plasma Ordered By: Eliu Britton on 01-30-2025 Anion gap [Moles/Vol] 13 mmol/L 5-[address] [facility] Automated lymphocyte count a s percentage of total leukocytesOrdered By: Eliu Britton on 01-30-2025 Lymphocytes/100 WBC Auto (Unsp spec) 16.8 % Low 19-41 [facility] BUN/creatinine ratioOrdered By: Eliu Britton on 01-30-2025 Urea nitrogen/Creatinine [Mass ratio] 17.2 mg/mg 10- [facility] Basophil percentageOrdered B y: Eliu Britton on 01-30-2025 Basophils/100 WBC (Bld) 0.7 % 0-1 [facility] Bilirubin, totalOrdered By: Eliu Britton on 01-30-2025 Bilirubin [Mass/Vol] 0.33 mg/dL 0.00-1.30 [facility] CBC W/Diff, Automatedon 01-21 Absolute Lymph 1.28 X10 3/uL Normal 0.83-4.51 [facility] Comment on above: Order Comment: Order Date: 01/30/25 Order Info: 01801-21 - CBCD Order Info: [id number] - RETIC Order Info: [id number] - SED Performed By: #### L 501.9520, L501.6710, L101.9900, L500.4050, L100.9950, L100.0100 #### [facility] [address] [place], [place], [id number] (098) Absolute Neut 5.0 X10 3/uL Normal 2.0-7.7 [facility] Comment on above: Order Comment: Order Date: 01/30/25 Order Info: 018- - CBCD Order Info: [id number] - RETIC Order Info: [id number] - SED Performed By: #### L 501.9520, L501.6710, L101.9900, L500.4050, L100.9950, L100.0100 #### [facility] [address] [place], [address] Basophils/100 WBC (Bld) 0.7 % Normal 0-1 [facility] Comment on above: Order Comment: Order Date: 01/30/25 Order Info: 018- - CBCD Order Info: 4679-7 - RETIC Order Info: [id number] - SED Performed By: #### L 501.9520, L501.6710, L101.9900, L500.4050, L100.9950, L100.0100 #### [facility] [address] [place], [address] Eosinophils/100 WBC (Bld) 1.1 % Normal 0-5 [facility] Comment on above: Order Comment: Order Date: 01/30/25 Order Info: 0184-1 - CBCD Order Info: 4679-7 - RETIC Order Info: [id number] - SED Performed By: #### L 501.9520, L501.6710, L101.9900, L500.4050, L100.9950, L100.0100 #### [facility] [address] [place], [address] Erythrocyte distribution width (RBC) [Ratio] 13.1 % Normal 11.6-14.6 [facility] Comment on above: Order Comment: Order Date: 01/30/25 Order Info: 018-1 - CBCD Order Info: 4679-7 - RETIC Order Info: [id number] - SED Performed By: #### L 501.9520, L501.6710, L101.9900, L500.4050, L100.9950, L100.0100 #### [facility] [address] [place], [address] Hematocrit (Bld) [Volume fraction] 33.9 % Low 40-54 [facility] Comment on above: Order Comment: Order Date: 01/30/25 Order Info: 018-1 - CBCD Order Info: 4679-7 - RETIC Order Info: [id number] - SED Performed By: #### L 501.9520, L501.6710, L101.9900, L500.4050, L100.9950, L100.0100 #### [facility] [address] [place], [address] Hemoglobin (Bld) [Mass/Vol] 11.4 g/dL Low 13.0-16.5 [facility] Comment on above: Order Comment: Order Date: 01/30/25 Order Info: 0184-1 - CBCD Order Info: 4679-7 - RETIC Order Info: [id number] - SED Performed By: #### L 501.9520, L501.6710, L101.9900, L500.4050, L100.9950, L100.0100 #### [facility] [address] [place], [address] IG% 0.400 Normal 0.0-0.9 [facility] Comment on above: Order Comment: Order Date: 01/30/25 Order Info: 183- - CBCD Order Info: 4679 - RETIC Order Info: - SED Result Comment: IG% - Immature Granulocytes (promyelocytes, myelocytes and metamyelocytes) > 1% indicates that a LEFT SHIFT is Present. Performed By: #### L 501.9520, L501.6710, L101.9900, L500.4050, L100.9950, L100.0100 #### [facility] [address] [place], [address] Lymphocytes/100 WBC (Bld) 16.8 % Low 19-41 [facility] Comment on above: Order Comment: Order Date: 01/30/25 Order Info: 183-10 - CBCD Order Info: [id number] - RETIC Order Info: [id number] - SED Performed By: #### L 501.9520, L501.6710, L101.9900, L500.4050, L100.9950, L100.0100 #### [facility] [address] [place], [address] MCH (RBC) [Entitic mass] 31.7 pg Normal 27.0-32.0 [facility] Comment on above: Order Comment: Order Date: 01/30/25 Order Info: 183-10 - CBCD Order Info: 4679-7 - RETIC Order Info: [id number] - SED Performed By: #### L 501.9520, L501.6710, L101.9900, L500.4050, L100.9950, L100.0100 #### [facility] [address] [place], [address] MCHC (RBC) [Mass/Vol] 33.6 g/dL Normal 32-[address] [facility] Comment on above: Order Comment: Order Date: 01/30/25 Order Info: 0184-1 - CBCD Order Info: 4679-7 - RETIC Order Info: [id number] - SED Performed By: #### L 501.9520, L501.6710, L101.9900, L500.4050, L100.9950, L100.0100 #### [facility] [address] [place], [address] MCV (RBC) [Entitic vol] 94.2 fL High 80-94 [facility] Comment on above: Order Comment: Order Date: 01/30/25 Order Info: 018-1 - CBCD Order Info: [id number] - RETIC Order Info: [id number] - SED Performed By: #### L 501.9520, L501.6710, L101.9900, L500.4050, L100.9950, L100.0100 #### [facility] [address] [place], [address] Monocytes/100 WBC (Bld) 15.0 % High 0-10 [facility] Comment on above: Order Comment: Order Date: 01/30/25 Order Info: 018-1 - CBCD Order Info: [id number] - RETIC Order Info: [id number] - SED Performed By: #### L 501.9520, L501.6710, L101.9900, L500.4050, L100.9950, L100.0100 #### [facility] [address] [place], [address] Neutrophils/100 WBC (Bld) 66.0 % Normal 47-70 [facility] Comment on above: Order Comment: Order Date: 01/30/25 Order Info: 0184-1 - CBCD Order Info: [id number] - RETIC Order Info: [id number] - SED Performed By: #### L 501.9520, L501.6710, L101.9900, L500.4050, L100.9950, L100.0100 #### [facility] [address] [place], [address] Nucleated RBC (Bld) [#/Vol] 0 10*3/uL Normal 0-5 [facility] Comment on above: Order Comment: Order Date: 01/30/25 Order Info: 0184-1 - CBCD Order Info: 4679-7 - RETIC Order Info: [id number] - SED Performed By: #### L 501.9520, L501.6710, L101.9900, L500.4050, L100.9950, L100.0100 #### [facility] [address] [place], [address] Platelet mean volume (Bld) [Entitic vol] 10.5 fL Normal 6.2-12.0 [facility] Comment on above: Order Comment: Order Date: 01/30/25 Order Info: 0184-1 - CBCD Order Info: 4679-7 - RETIC Order Info: [id number] - SED Performed By: #### L 501.9520, L501.6710, L101.9900, L500.4050, L100.9950, L100.0100 #### [facility] [address] [place], [address] Platelets (Bld) [#/Vol] 201 10*3/uL Normal 150-450 [facility] Comment on above: Order Comment: Order Date: 01/30/25 Order Info: 0184-1 - CBCD Order Info: 4679-7 - RETIC Order Info: [id number] - SED Performed By: #### L 501.9520, L501.6710, L101.9900, L500.4050, L100.9950, L100.0100 #### [facility] [address] [place], [address] RBC (Bld) [#/Vol] 3.60 10*6/uL Low 4.6-6.2 [facility] Comment on above: Order Comment: Order Date: 01/30/25 Order Info: [id number] - CBCD Order Info: 4679 - RETIC Order Info: [id number] - SED Performed By: #### L 501.9520, L501.6710, L101.9900, L500.4050, L100.9950, L100.0100 #### [facility] [address] [place], [address] RDW SD 45.1 fl High 35.1-43.9 [facility] Comment on above: Order Comment: Order Date: 01/30/25 Order Info: [id number] - CBCD Order Info: 4679 - RETIC Order Info: [id number] - SED Performed By: #### L 501.9520, L501.6710, L101.9900, L500.4050, L100.9950, L100.0100 #### [facility] [address] [place], [address] WBC (Bld) [#/Vol] 7.6 10*3/uL Normal 4.4-11.0 [facility] Comment on above: Order Comment: Order Date: 01/30/25 Order Info: 0184- - CBCD Order Info: 4679 - RETIC Order Info: [id number] - SED Performed By: #### L 501.9520, L501.6710, L101.9900, L500.4050, L100.9950, L100.0100 #### [facility] [address] [place], [address] CRPon 01-30-2025 C-REACTIVE PROT 3.84 mg/L High 0.0-3.0 [facility] Comment on above: Order Comment: Order Date: 01/30/25 Order Info: 0786-1 - CMP Order Info: [id number] - CRP Order Info: 3016-3 - TSH Performed By: #### L 501.9520, L501.6710, L101.9900, L500.4050, L100.9950, L100.0100 #### [facility] [address] [place], [address] CRP [Mass/Vol]Ordered By: Kwesi Brittno on 01-30-2025 C-Reactive Protein Extended Range 3.84 mg/L High 0.0-3.0 [facility] Carbon dioxide, total [Moles /volume] in Central venous bloodOrdered By: Eliu Britton on 01-30-2025 CO2 [Moles/Vol] 22.6 mmol/L 21.0-32.0 [facility] Chloride assayOrdered By: Kwesi Britton on 01-30-2025 Chloride [Moles/Vol] 98 mmol/L 98-108 [facility] Comprehensive Metabolic Prof ilon 01-30-2025 Albumin [Mass/Vol] 4.2 g/dL Normal 3.4-4.8 [facility] Comment on above: Order Comment: Order Date: 01/30/25 Order Info: 0786-1 - CMP Order Info: [id number] - CRP Order Info: 3013 - TSH Performed By: #### L 501.9520, L501.6710, L101.9900, L500.4050, L100.9950, L100.0100 #### [facility] [address] [place], [address] Albumin/Globulin [Mass ratio] 1.3 {ratio} Normal 0.9-2.4 [facility] Comment on above: Order Comment: Order Date: 01/30/25 Order Info: 0786-1 - CMP Order Info: [id number] - CRP Order Info: 3013 - TSH Performed By: #### L 501.9520, L501.6710, L101.9900, L500.4050, L100.9950, L100.0100 #### [facility] [address] [place], [address] ALK PHOS 56 U/L Normal 40-129 [facility] Comment on above: Order Comment: Order Date: 01/30/25 Order Info: 785-10 - CMP Order Info: - CRP Order Info: 3015-12 - TSH Performed By: #### L 501.9520, L501.6710, L101.9900, L500.4050, L100.9950, L100.0100 #### [facility] [address] [place], [address] ALT [Catalytic activity/Vol] 21 U/L Normal <=46 [facility] Comment on above: Order Comment: Order Date: 01/30/25 Order Info: 785-10 - CMP Order Info: - CRP Order Info: 3015-12 - TSH Performed By: #### L 501.9520, L501.6710, L101.9900, L500.4050, L100.9950, L100.0100 #### [facility] [address] [place], [place], [id number] AST [Catalytic activity/Vol] 48 U/L High <=37 [facility] Comment on above: Order Comment: Order Date: 01/30/25 Order Info: 785-10 - CMP Order Info: [id number] - CRP Order Info: 3015-12 - TSH Performed By: #### L 501.9520, L501.6710, L101.9900, L500.4050, L100.9950, L100.0100 #### [facility] [address] [place], [place], [address] Bilirubin [Mass/Vol] 0.33 mg/dL Normal 0.00-1.30 [facility] Comment on above: Order Comment: Order Date: 01/30/25 Order Info: 785-10 - CMP Order Info: [id number] - CRP Order Info: 3015-12 - TSH Performed By: #### L 501.9520, L501.6710, L101.9900, L500.4050, L100.9950, L100.0100 #### [facility] [address] [place], [address] BUN/CRE 17.2 RATIO Normal 10-20 [facility] Comment on above: Order Comment: Order Date: 01/30/25 Order Info: 785-1 - CMP Order Info: [id number] - CRP Order Info: 3 - TSH Performed By: #### L 501.9520, L501.6710, L101.9900, L500.4050, L100.9950, L100.0100 #### [facility] [address] [place], [address] Calcium [Mass/Vol] 9.8 mg/dL Normal 7.6-11.0 [facility] Comment on above: Order Comment: Order Date: 01/30/25 Order Info: 1 - CMP Order Info: - CRP Order Info: 3015-12 - TSH Performed By: #### L 501.9520, L501.6710, L101.9900, L500.4050, L100.9950, L100.0100 #### [facility] [address] [place], [address] Chloride [Moles/Vol] 98 mmol/L Normal 98-108 [facility] Comment on above: Order Comment: Order Date: 01/30/25 Order Info: 1 - CMP Order Info: [id number] - CRP Order Info: 3015-12 - TSH Performed By: #### L 501.9520, L501.6710, L101.9900, L500.4050, L100.9950, L100.0100 #### [facility] [address] [place], [address] CO2 [Moles/Vol] 22.6 mmol/L Normal 21.0-32.0 [facility] Comment on above: Order Comment: Order Date: 01/30/25 Order Info: 07-1 - CMP Order Info: [id number] - CRP Order Info: 3015-12 - TSH Performed By: #### L 501.9520, L501.6710, L101.9900, L500.4050, L100.9950, L100.0100 #### [facility] [address] [place], [place], [address] Creatinine [Mass/Vol] 1.37 mg/dL High 0.70-1.[address] [facility] Comment on above: Order Comment: Order Date: 01/30/25 Order Info: 0786-1 - CMP Order Info: [id number] - CRP Order Info: 3015-12 - TSH Performed By: #### L 501.9520, L501.6710, L101.9900, L500.4050, L100.9950, L100.0100 #### [facility] [address] [place], [place], [address] GAP 13 Normal 5-15 [facility] Comment on above: Order Comment: Order Date: 01/30/25 Order Info: 0786- - CMP Order Info: [id number] - CRP Order Info: 3015-12 - TSH Performed By: #### L 501.9520, L501.6710, L101.9900, L500.4050, L100.9950, L100.0100 #### [facility] [address] [place], [place], [address] GFR/1.73 sq M.predicted among non-blacks MDRD (S/P/Bld) [Vol rate/Area] 50 mL/min/{1.73_m2} Low >60 [facility] Comment on above: Order Comment: Order Date: 01/30/25 Order Info: 0786-1 - CMP Order Info: [id number] - CRP Order Info: 3015-12 - TSH Result Comment: mL/m in/1.73m2 CKD-EPI Creatinine Equation (2020) Performed By: #### L 501.9520, L501.6710, L101.9900, L500.4050, L100.9950, L100.0100 #### [facility] [address] [place], [address] Globulin (S) [Mass/Vol] 3.2 g/dL Normal 2.2-4.2 [facility] Comment on above: Order Comment: Order Date: 01/30/25 Order Info: 0786-1 - CMP Order Info: [id number] - CRP Order Info: 3015-12 - TSH Performed By: #### L 501.9520, L501.6710, L101.9900, L500.4050, L100.9950, L100.0100 #### [facility] [address] [place], [address] Glucose [Mass/Vol] 115 mg/dL High 70-99 [facility] Comment on above: Order Comment: Order Date: 01/30/25 Order Info: 785-10 - CMP Order Info: - CRP Order Info: 3015-12 - TSH Performed By: #### L 501.9520, L501.6710, L101.9900, L500.4050, L100.9950, L100.0100 #### [facility] [address] [place], [address] Potassium [Moles/Vol] 4.4 mmol/L Normal 3.3-5.[address] [facility] Comment on above: Order Comment: Order Date: 01/30/25 Order Info: 07-1 - CMP Order Info: [id number] - CRP Order Info: 3015-12 - TSH Performed By: #### L 501.9520, L501.6710, L101.9900, L500.4050, L100.9950, L100.0100 #### [facility] [address] [place], [address] Sodium [Moles/Vol] 133 mmol/L Normal 133-145 [facility] Comment on above: Order Comment: Order Date: 01/30/25 Order Info: 07-1 - CMP Order Info: 13703-1 - CRP Order Info: 3015-12 - TSH Performed By: #### L 501.9520, L501.6710, L101.9900, L500.4050, L100.9950, L100.0100 #### [facility] [address] [place], [place], [address] T PROT 7.3 g/dL Normal 5.9-8.4 [facility] Comment on above: Order Comment: Order Date: 01/30/25 Order Info: 0786-1 - CMP Order Info: [id number] - CRP Order Info: 3015-12 - TSH Performed By: #### L 501.9520, L501.6710, L101.9900, L500.4050, L100.9950, L100.0100 #### [facility] [address] [place], [place], [address] Urea nitrogen [Mass/Vol] 24 mg/dL High 4-19 [facility] Comment on above: Order Comment: Order Date: 01/30/25 Order Info: 0786-1 - CMP Order Info: [id number] - CRP Order Info: 3 - TSH Performed By: #### L 501.9520, L501.6710, L101.9900, L500.4050, L100.9950, L100.0100 #### [facility] [address] [place], [place], [address] Eosinophil percentageOrdered By: Eliu Britton on 01-30-2025 Eosinophils/100 WBC (Bld) 1.1 % 0-5 [facility] Erythrocyte Sed Rateon 01-30 SED RATE 31 mm/hr High 0-20 [facility] Comment on above: Order Comment: Order Date: 01/30/25 Order Info: 0184-1 - CBCD Order Info: 4679-7 - RETIC Order Info: [id number] - SED Performed By: #### L 501.9520, L501.6710, L101.9900, L500.4050, L100.9950, L100.0100 #### [facility] [address] [place], [address] Erythrocyte distribution wid th (RBC) [Ratio]Ordered By: Eliu Britton on 01-30-2025 Erythrocyte distribution width (RBC) [Entitic vol] 45.1 fL High 35.1-43.9 [facility] Erythrocyte distribution wid th ratioOrdered By: Eliu Britton on 01-30-2025 Erythrocyte distribution width (RBC) [Ratio] 13.1 % 11.6-14.6 [facility] Erythrocyte distribution wid th standard deviationOrdered By: Eliu Britton on 01-30-2025 Erythrocyte distribution width (RBC) [Ratio] 45.1 fl High 35.1-43.9 [facility] Erythrocyte sedimentation ra teOrdered By: Eliu Brtiton on 01-30-2025 ESR (Bld) [Velocity] 31 mm/h High 0-20 [facility] GFR/1.73 sq M.predicted alen g non-blacks MDRD (S/P/Bld) [Vol rate/Area]Ordered By: Eliu Britton on 01-30-2025 Estimated GFR (MDRD) Non-Af Amer 50 Low >60 [facility] Comment on above: mL/min/1.73m2 CKD-EP I Creatinine Equation (2020) Glomerular filtration rate ( GFR) estimation/1.73 sq m using serum, plasma, or whole bOrdered By: Eliu Britton on 01-30-2025 GFR/1.73 sq M.predicted among non-blacks MDRD (S/P/Bld) [Vol rate/Area] 50 mL/min/{1.73_m2} Low >60 [facility] Comment on above: mL/min/1.73m2 CKD-EP I Creatinine Equation (2020) Hematocrit Auto (Bld) [Volum e fraction]Ordered By: Eliu Britton on 01-30-2025 Hematocrit (Bld) [Volume fraction] 33.9 % Low 40-54 [facility] Hemoglobin (Reticulocytes) [ Entitic mass]Ordered By: Eliu Britton on 01-30-2025 Reticulocyte Hemoglobin Equivalent 34.1 pg 30-35 [facility] Hemoglobin measurementOrdere d By: Eliu Britton on 01-30-2025 Hemoglobin (Bld) [Mass/Vol] 11.4 g/dL Low 13.0-16.5 [facility] Immature granulocytes/100 WB C Auto (Bld)Ordered By: Eliu Britton on 01-30-2025 Immature granulocytes/100 WBC (Bld) 0.400 % 0.0-0.9 [facility] Comment on above: IG% - Immature Granu locytes (promyelocytes, myelocytes and metamyelocytes) > 1% indicates that a LEFT SHIFT is Present. Immature reticulocyte fracti onOrdered By: Eliu Britton on 01-30-2025 Immature Reticulocyte Fraction 9.20 % 3.00-15.90 [facility] - Chemistry and C hemistry - challengeOrdered By: Eliu Britton on 01-30-2025 AST [Catalytic activity/Vol] 48 U/L High <38 [facility] Lymphocytes Auto (Unsp spec) [#/Vol]Ordered By: Eliu Britton on 01-30-2025 Lymphocytes (Bld) [#/Vol] 1.28 10*3/uL 0.83-4.5 1 [facility] Lymphocytes/100 WBC Auto (Un sp spec)Ordered By: Eliu Britton on 01-30-2025 Lymphocytes/100 WBC (Bld) 16.8 % Low 19-41 [facility] MCV (mean corpuscular volume ) determinationOrdered By: Eliu Britton on 01-30-2025 MCV (RBC) [Entitic vol] 94.2 fL High 80-94 [facility] Mean corpuscular hemoglobin (MCH) determinationOrdered By: Eliu Britton on 01-30-2025 MCH (RBC) [Entitic mass] 31.7 pg 27.0-32.0 [facility] Mean corpuscular hemoglobin concentration (MCHC) determinationOrdered By: Eliu Britton on 01-30-2025 MCHC (RBC) [Mass/Vol] 33.6 g/dL 32-[address] [facility] Mean platelet volume determi nationOrdered By: Eliu Britton on 01-30-2025 Platelet mean volume (Bld) [Entitic vol] 10.5 fL 6.2-12.0 [facility] Monocyte percentageOrdered B y: Eliu Britton on 01-30-2025 Monocytes/100 WBC (Bld) 15.0 % High 0-10 [facility] Neutrophil percentageOrdered By: Eliu Britton on 01-30-2025 Neutrophils/100 WBC (Bld) 66.0 % 47-70 [facility] Nucleated red blood cell per centageOrdered By: Eliu Britton on 01-30-2025 Nucleated RBC/100 WBC (Bld) [Ratio] 0 % 0-5 [facility] Platelet countOrdered By: Kwesi Britton on 01-30-2025 Platelets (Bld) [#/Vol] 201 10*3/uL 150-450 [facility] Potassium (Unsp spec) [Mass/ Vol]Ordered By: Eliu Britton on 01-30-2025 Potassium [Moles/Vol] 4.4 mmol/L 3.3-5.[address] [facility] Potassium measurement (mass/ volume)Ordered By: Eliu Britton on 01-30-2025 Potassium (Unsp spec) [Mass/Vol] 4.4 mmol/L 3.3-5.1 [facility] RBC Auto (Bld) [#/Vol]Ordere d By: Eliu Britton on 01-30-2025 RBC (Bld) [#/Vol] 3.60 10*6/uL Low 4.6-6.2 [facility] Retic Panelon 01-30-2025 IM RET FRACTION 9.20 Normal 3.00-15.90 [facility] Comment on above: Order Comment: Order Date: 01/30/25 Order Info: 0184-1 - CBCD Order Info: 4679-7 - RETIC Order Info: [id number] - SED Performed By: #### L 501.9520, L501.6710, L101.9900, L500.4050, L100.9950, L100.0100 #### [facility] [address] [place], [address] RET-HE 34.1 pg Normal 30-35 [facility] Comment on above: Order Comment: Order Date: 01/30/25 Order Info: 0184-1 - CBCD Order Info: 4679-7 - RETIC Order Info: [id number] - SED Performed By: #### L 501.9520, L501.6710, L101.9900, L500.4050, L100.9950, L100.0100 #### [facility] [address] [place], [place], [address] Retic Count 1.75 High 0.5-1.5 [facility] Comment on above: Order Comment: Order Date: 01/30/25 Order Info: 0184-1 - CBCD Order Info: 4679-7 - RETIC Order Info: [id number] - SED Performed By: #### L 501.9520, L501.6710, L101.9900, L500.4050, L100.9950, L100.0100 #### [facility] [address] [place], [place], [id number] Reticulocyte hemoglobin equi valent (RET-He) measurementOrdered By: Eliu Britton on 01-30-2025 Hemoglobin (Reticulocytes) [Entitic mass] 34.1 pg 30-35 [facility] Reticulocytes Auto (Bld) [#/ Vol]Ordered By: Eliu Britton on 01-30-2025 Reticulocyte Count 1.75 % High 0.5-1.5 [facility] Reticulocytes/100 RBC (Bld) 1.75 % High 0.5-1.5 [facility] Serum creatinine measurement (mass/volume)Ordered By: Eliu Britton on 01-30-2025 Creatinine [Mass/Vol] 1.37 mg/dL High 0.70-1.[address] [facility] Serum globulin measurementOr dered By: Eliu Britton on 01-30-2025 Globulin (S) [Mass/Vol] 3.2 g/dL 2.2-4.2 [facility] Serum glucose measurement (m ass/volume)Ordered By: Eliu Britton on 01-30-2025 Glucose [Mass/Vol] 115 mg/dL High 70-99 [facility] Serum or plasma C reactive p rotein measurement (mass/volume)Ordered By: Eliu Britton on 01-30-2025 CRP [Mass/Vol] 3.84 mg/L High 0.0-3.0 [facility] Serum or plasma alanine sinclair otransferase (ALT) measurementOrdered By: Eliu Britton on 01-30-2025 ALT [Catalytic activity/Vol] 21 U/L <47 [facility] Serum or plasma albumin nia urement (mass/volume)Ordered By: Eliu Britton on 01-30-2025 Albumin [Mass/Vol] 4.2 g/dL 3.4-4.8 [facility] Serum or plasma albumin/glob ulin mass ratioOrdered By: Eliu Britton on 01-30-2025 Albumin/Globulin [Mass ratio] 1.3 {ratio} 0.9-2.4 [facility] Serum or plasma alkaline yao sphatase measurementOrdered By: Eliu Britton on 01-30-2025 ALP [Catalytic activity/Vol] 56 U/L 40-129 [facility] Serum or plasma calcium nia urement (mass/volume)Ordered By: Eliu Britton on 01-30-2025 Calcium [Mass/Vol] 9.8 mg/dL 7.6-11.0 [facility] Serum or plasma urea nitroge n measurement (mass/volume)Ordered By: Eliu Britton on 01-30-2025 Urea nitrogen [Mass/Vol] 24 mg/dL High 4-19 [facility] Sodium levelOrdered By: Eliu Britton on 01-30-2025 Sodium [Moles/Vol] 133 mmol/L 133-145 [facility] TSH DL <= 0.005 mIU/L QnOrde red By: Eliu Britton on 01-30-2025 Thyroid Stimulating Hormone (TSH) 3.170 uIU/mL 0.300-4.200 [facility] TSH Qn 3.170 uIU/mL 0.300-4.200 [facility] Thyroid Stim Hormone (TSH)on 01-30-2025 TSH 3.170 uIU/mL Normal 0.300-4.200 [facility] Comment on above: Order Comment: Order Date: 01/30/25 Order Info: 0786-1 - CMP Order Info: [id number] - CRP Order Info: 3016-3 - TSH Performed By: #### L 501.9520, L501.6710, L101.9900, L500.4050, L100.9950, L100.0100 #### [facility] [address] [place], [address] Total proteinOrdered By: Ariella Britton on 01-30-2025 Protein [Mass/Vol] 7.3 g/dL 5.9-8.4 [facility] White blood cell (WBC) count Ordered By: Eliu Britton on 01-30-2025 WBC (Bld) [#/Vol] 7.6 10*3/uL 4.4-11.0 [facility] Absolute lymphocyte countOrd ered By: Eliu Britton on 12-14-2023 Lymphocytes Auto (Unsp spec) [#/Vol] 1.10 10*3/uL 0.83-4.51 [facility] Automated lymphocyte count a s percentage of total leukocytesOrdered By: Eliu Britton on 12-14-2023 Lymphocytes/100 WBC Auto (Unsp spec) 15.6 % 19-41 [facility] Basophil percentageOrdered B y: Eliu Britton on 12-14-2023 Basophils/100 WBC (Bld) 1.0 % 0-1 [facility] Bilirubin [Mass/Vol] 0.50 mg/dL 0.20-1.00 [facility] Comment on above: For patients on eltr ombopag therapy, use of Dimension [place] TBIL is not recommended. Chloride [Moles/Vol] 99 mmol/L 98-107 [facility] Eosinophils/100 WBC (Bld) 1.3 % 0-5 [facility] Glucose [Mass/Vol] 107 mg/dL 74-106 [facility] Comment on above: Fasting Glucose resu lt from 100 to 125 mg/dL suggests IMPAIRED HOMEOSTASIS per A.D.A. criteria. Hemoglobin (Bld) [Mass/Vol] 11.6 g/dL 13.0-16.5 [facility] Monocytes/100 WBC (Bld) 13.2 % 0-10 [facility] Neutrophils (Bld) [#/Vol] 4.8 10*3/uL 2.0-7.7 [facility] Neutrophils/100 WBC (Bld) 68.5 % 47-70 [facility] Potassium [Moles/Vol] 4.2 mmol/L 3.5-5.[address] [facility] Protein [Mass/Vol] 7.6 g/dL 6.4-8.2 [facility] Sodium [Moles/Vol] 133 mmol/L 136-145 [facility] WBC (Bld) [#/Vol] 7.1 10*3/uL 4.4-11.0 [facility] Determination of erythrocyte mean corpuscular volume (MCV)Ordered By: Eliu Britton on 12-14-2023 MCV (RBC) [Entitic vol] 94.7 fL 80-94 [facility] Erythrocyte distribution wid th ratioOrdered By: Eliu Britton on 12-14-2023 Erythrocyte distribution width (RBC) [Ratio] 13.0 % 11.6-14.6 [facility] Erythrocyte distribution wid th standard deviationOrdered By: Eliu Britton on 12-14-2023 Erythrocyte distribution width (RBC) [Entitic vol] 45.1 fL 35.1-43.9 [facility] Hematocrit Auto (Bld) [Volum e fraction]Ordered By: Eliu Britton on 12-14-2023 Hematocrit (Bld) [Volume fraction] 35.6 % 40-54 [facility] Immature granulocytes/100 WB C Auto (Bld)Ordered By: Eliu Britton on 12-14-2023 Immature granulocytes/100 WBC (Bld) 0.400 % 0.0-0.9 [facility] Comment on above: IG% - Immature Granu locytes (promyelocytes, myelocytes and metamyelocytes) > 1% indicates that a LEFT SHIFT is Present. Laboratory - Chemistry and C hemistry - challengeOrdered By: Eliu Britton on 12-14-2023 Albumin/Globulin [Mass ratio] 0.9 {ratio} 0.9-2.4 [facility] ALP [Catalytic activity/Vol] 63 U/L 45-117 [facility] ALT [Catalytic activity/Vol] 24 U/L 16-61 [facility] CO2 [Moles/Vol] 27.0 mmol/L 21.0-32.0 [facility] Globulin (S) [Mass/Vol] 3.9 g/dL 2.2-4.2 [facility] Urea nitrogen/Creatinine [Mass ratio] 17.6 mg/mg 10-20 [facility] Laboratory - CoagulationOrde red By: Eliu Britton on 12-14-2023 INR Coag (Bld) [Relative time] 1.9 {INR} [facility] PT Coag (PPP) [Time] 22.1 s 11.7-14.9 [facility] Laboratory - Hematology and Cell countsOrdered By: Eliu Britton on 12-14-2023 MCH (RBC) [Entitic mass] 30.9 pg 27.0-32.0 [facility] MCHC (RBC) [Mass/Vol] 32.6 g/dL 32-[address] [facility] Nucleated RBC/100 WBC (Bld) [Ratio] 0 % 0-5 [facility] Platelet mean volume (Bld) [Entitic vol] 10.7 fL 6.2-12.0 [facility] Platelets (Bld) [#/Vol] 203 10*3/uL 150-450 [facility] No Panel InformationOrdered By: Eliu Britton on 12-14-2023 Estimated GFR (MDRD) Amer 61 mL/min >60 [facility] Comment on above: GFR Calc Estimated GFR (MDRD) Non-Af Amer 50 mL/min >60 [facility] Comment on above: Non- GFR Calc Prostate Specific Antigen Screen 1.55 ng/mL 0.00-4.00 [facility] Comment on above: This test was perfor med using the TPSA assay method for the[facility] [place] chemistry system. Values obtained with differentassay methods cannot be used interchangably.When changing PSA assays in the course of monitoring apatient, additional sequential testing should be carriedout to confirm baseline values. RBC Auto (Bld) [#/Vol]Ordere d By: Eliu Britton on 12-14-2023 RBC (Bld) [#/Vol] 3.76 10*6/uL 4.6-6.2 [facility] Serum or plasma calcium nia urement (mass/volume)Ordered By: Eliu Britton on 12-14-2023 Calcium [Mass/Vol] 9.7 mg/dL 8.5-10.1 [facility] Serum or plasma creatinine m easurement (mass/volume)Ordered By: Eliu Britton on 12-14-2023 Creatinine [Mass/Vol] 1.42 mg/dL 0.70-1.[address] [facility] Comment on above: The validity of the calculated GFR & GFRAA in patients over 70 years has not been determined. Clinical correlation is essential. Serum or plasma urea nitroge n measurement (mass/volume)Ordered By: Eliu Britton on 12-14-2023 Urea nitrogen [Mass/Vol] 25 mg/dL 7-18 [facility] Thin prep Papanicolaou smear with manual screeningOrdered By: Eliu Britton on 12-14-2023 Thin prep Papanicolaou smear with manual screening 3.7 g/dL 3.2-5.0 [facility] Thin prep Papanicolaou smear with manual screening 26 U/L 15-37 [facility] Thin prep Papanicolaou smear with manual screening 7 5-15 [facility] Bilirubin Test strip Ql (U)O rdered By: Eliu Britton on 09-15-2023 Bilirubin Ql (U) Negative Negative [facility] Ketones Test strip Ql (U)Ord ered By: Eliu Britton on 09-15-2023 Ketones Ql (U) Negative Negative [facility] Nitrite Test strip Ql (U)Ord ered By: Eliu Britton on 09-15-2023 Nitrite Ql (U) Negative Negative [facility] No Panel InformationOrdered By: Eliu Britton on 09-15-2023 Urine Microalbumin/Creatinine Ratio 31.8 mg/g CRE <30 [facility] Protein Test strip Ql (U)Ord ered By: Eliu Britton on 09-15-2023 Protein Ql (U) Negative Negative [facility] Thin prep Papanicolaou smear with manual screeningOrdered By: Eliu Britton on 09-15-2023 Thin prep Papanicolaou smear with manual screening 6.6 mg/L NO RANGE EST. [facility] Urine blood detectionOrdered By: Eliu Britton on 09-15-2023 RBC Ql (U) 10 /ul Negative [facility] Urine clarityOrdered By: Ariella Britton on 09-15-2023 Clarity (U) Clear Clear [facility] Urine color determinationOrd ered By: Eliu Britton on 09-15-2023 Color (U) Yellow Yellow [facility] Urine creatinine measurement (mass/volume)Ordered By: Eliu Britton on 09-15-2023 Creatinine (U) [Mass/Vol] 20.70 mg/dL NO RANGE EST. [facility] Urine glucose detectionOrder ed By: Eliu Britton on 09-15-2023 Glucose Ql (U) Normal mg/dl Normal [facility] Urine leukocyte esterase det ection by dipstickOrdered By: Eliu Britton on 09-15-2023 Leukocyte esterase Test strip Ql (U) Negative Negative [facility] Urine pHOrdered By: Eliu cunningham on 09-15-2023 pH (U) 7.0 [pH] 5.0 - 8.0 [facility] Urine specific gravity measu rementOrdered By: Eliu Britton on 09-15-2023 Specific gravity (U) [Rel density] 1.005 1.002-1.030 [facility] Urobilinogen Auto test strip Ql (U)Ordered By: Eliu Britton on 09-15-2023 Urobilinogen Ql (U) Normal mg/dl Normal [facility] Absolute lymphocyte countOrd ered By: Eliu Britton on 08-14-2023 Lymphocytes Auto (Unsp spec) [#/Vol] 1.86 10*3/uL 0.83-4.51 [facility] Basophil percentageOrdered B y: Eliu Britton on 08-14-2023 Basophils/100 WBC (Bld) 0.9 % 0-1 [facility] Bilirubin [Mass/Vol] 0.60 mg/dL 0.20-1.00 [facility] Comment on above: For patients on eltr ombopag therapy, use of Dimension [place] TBIL is not recommended. Chloride [Moles/Vol] 102 mmol/L 98-107 [facility] Cholesterol [Mass/Vol] 104 mg/dL <200 [facility] Comment on above: <200 mg/dL Desirable 200-240 mg/dL Borderline >240 mg/dL High Risk Eosinophils/100 WBC (Bld) 2.4 % 0-5 [facility] Glucose [Mass/Vol] 102 mg/dL 74-106 [facility] Comment on above: Fasting Glucose resu lt from 100 to 125 mg/dL suggests IMPAIRED HOMEOSTASIS per A.D.A. criteria. Neutrophils (Bld) [#/Vol] 4.2 10*3/uL 2.0-7.7 [facility] Neutrophils/100 WBC (Bld) 56.4 % 47-70 [facility] Potassium [Moles/Vol] 4.0 mmol/L 3.5-5.[address] [facility] Protein [Mass/Vol] 7.3 g/dL 6.4-8.2 [facility] Sodium [Moles/Vol] 135 mmol/L 136-145 [facility] Triglyceride [Mass/Vol] 121 mg/dL <199 [facility] Comment on above: The drugs N-Acetylcy steine and Metamizole may falsely depress this assay.Serum Triglycerides Reference Interval Normal <150 mg/dL Borderline high 150 - 199 mg/dL High 200 - 499 mg/dL Very High > or = 500 mg/dL WBC (Bld) [#/Vol] 7.5 10*3/uL 4.4-11.0 [facility] Blood erythrocytes count (nu mber/volume)Ordered By: Eliu Britton on 08-14-2023 RBC (Bld) [#/Vol] 3.78 10*6/uL 4.6-6.2 [facility] Blood hemoglobin measurement (mass/volume)Ordered By: Eliu Britton on 08-14-2023 Hemoglobin (Bld) [Mass/Vol] 11.6 g/dL 13.0-16.5 [facility] Blood lymphocytes/100 leukoc ytesOrdered By: Eliu Britton on 08-14-2023 Lymphocytes/100 WBC (Bld) 24.9 % 19-41 [facility] Blood monocytes/100 leukocyt esOrdered By: Eliu Britton on 08-14-2023 Monocytes/100 WBC (Bld) 15.0 % 0-10 [facility] Blood platelet mean volumeOr dered By: Eliu Britton on 08-14-2023 Platelet mean volume (Bld) [Entitic vol] 10.4 fL 6.2-12.0 [facility] Determination of erythrocyte mean corpuscular volume (MCV)Ordered By: Eliu Britton on 08-14-2023 MCV (RBC) [Entitic vol] 96.0 fL 80-94 [facility] Hematocrit Auto (Bld) [Volum e fraction]Ordered By: Eliu Britton on 08-14-2023 Hematocrit (Bld) [Volume fraction] 36.3 % 40-54 [facility] INR in Blood by Coagulation assayOrdered By: Eliu Britton on 08-14-2023 INR Coag (Bld) [Relative time] 2.0 {INR} [facility] Laboratory - Chemistry and C hemistry - challengeOrdered By: Eliu Britton on 08-14-2023 ALP [Catalytic activity/Vol] 60 U/L 45-117 [facility] ALT [Catalytic activity/Vol] 26 U/L 16-61 [facility] CO2 [Moles/Vol] 26.0 mmol/L 21.0-32.0 [facility] Globulin (S) [Mass/Vol] 3.9 g/dL 2.2-4.2 [facility] Urea nitrogen/Creatinine [Mass ratio] 18.2 mg/mg 10-20 [facility] Laboratory - CoagulationOrde red By: Eliu Britton on 08-14-2023 PT Coag (PPP) [Time] 23.1 s 11.7-14.9 [facility] Laboratory - Hematology and Cell countsOrdered By: Eliu Britton on 08-14-2023 Erythrocyte distribution width (RBC) [Entitic vol] 47.8 fL 35.1-43.9 [facility] Erythrocyte distribution width (RBC) [Ratio] 13.4 % 11.6-14.6 [facility] Immature granulocytes/100 WBC (Bld) 0.400 % 0.0-0.9 [facility] Comment on above: IG% - Immature Granu locytes (promyelocytes, myelocytes and metamyelocytes) > 1% indicates that a LEFT SHIFT is Present. MCH (RBC) [Entitic mass] 30.7 pg 27.0-32.0 [facility] Nucleated RBC/100 WBC (Bld) [Ratio] 0 % 0-5 [facility] MCHC Auto (RBC) [Mass/Vol]Or dered By: Eliu Britton on 08-14-2023 MCHC (RBC) [Mass/Vol] 32.0 g/dL 32-[address] [facility] No Panel InformationOrdered By: Eliu Britton on 08-14-2023 Estimated GFR (MDRD) Amer 66 mL/min >60 [facility] Comment on above: GFR Calc Estimated GFR (MDRD) Non-Af Amer 55 mL/min >60 [facility] Comment on above: Non- GFR Calc Platelets bldOrdered By: Ariella Britton on 08-14-2023 Platelets (Bld) [#/Vol] 224 10*3/uL 150-450 [facility] Serum or plasma albumin nia urement (mass/volume)Ordered By: Eliu Britton on 08-14-2023 Albumin [Mass/Vol] 3.4 g/dL 3.2-5.0 [facility] Serum or plasma albumin/glob ulin mass ratioOrdered By: Eliu Britton on 08-14-2023 Albumin/Globulin [Mass ratio] 0.9 {ratio} 0.9-2.4 [facility] Serum or plasma calcium nia urement (mass/volume)Ordered By: Eliu Britton on 08-14-2023 Calcium [Mass/Vol] 9.4 mg/dL 8.5-10.1 [facility] Serum or plasma cholesterol in HDL measurement (mass/volume)Ordered By: Eliu Britton on 08-14-2023 Cholesterol in HDL [Mass/Vol] 48 mg/dL >40 [facility] Comment on above: The drugs N-Acetylcy steine and Metamizole may falsely depress this assay. Reference Range HDL <40 mg/dL Low HDL Cholesterol HDL >or= 60 mg/dL High HDL Cholesterol Serum or plasma cholesterol in VLDL measurement (mass/volume)Ordered By: Eliu Britton on 08-14-2023 Cholesterol in VLDL [Mass/Vol] 24 mg/dL 5-40 [facility] Serum or plasma creatinine m easurement (mass/volume)Ordered By: Eliu Britton on 08-14-2023 Creatinine [Mass/Vol] 1.32 mg/dL 0.70-1.[address] [facility] Comment on above: The validity of the calculated GFR & GFRAA in patients over 70 years has not been determined. Clinical correlation is essential. Serum or plasma ferritin mechelle surement (mass/volume)Ordered By: Eliu Britton on 08-14-2023 Ferritin [Mass/Vol] 524 ng/mL 26-388 [facility] Serum or plasma low density lipoprotein (LDL) cholesterol measurement (mass/volume)Ordered By: Eliu Britton on 08-14-2023 Cholesterol in LDL [Mass/Vol] 32 mg/dL 0-130 [facility] Serum or plasma urea nitroge n measurement (mass/volume)Ordered By: Eliu Britton on 08-14-2023 Urea nitrogen [Mass/Vol] 24 mg/dL 7-18 [facility] Thin prep Papanicolaou smear with manual screeningOrdered By: Eliu Britton on 08-14-2023 Thin prep Papanicolaou smear with manual screening 27 U/L 15-37 [facility] Thin prep Papanicolaou smear with manual screening 7 5-15 [facility] CNPNon 03-05-2023 CNPN Telephone ([facility]) ---- JAMAR REED ([id number]) 1935 M Date Time Provider Department 03/05/23 [facility] During your visit today, we recorded the following information about you: Kristen Kinney MA 03/05/2023 10:33 AM Signed ----- Message from Justin Renee APRN.CANDLE WR[employer]PER sent at 03/05/2023 8:14 AM EDT ----- [...] He may discuss this with a provider. Justin Renee APRN.JANIE Kinney MA 03/05/2023 10:36 AM Signed Pt was notified of the results. Pt verbalized understanding. Kristen Kinney MA Allergies As of Date: 03/05/2023 Noted Allergy Reaction NAPROSYN (NAPROXEN) 08/25/2009 Comments: muscle spasms Date Reviewed: 03/04/2023 Reviewed by: Brigette Bean LPN - Fully Assessed Reason for Visit: Results [95] Prescriptions as of 03/05/2023 - warfarin (COUMADIN) 2 mg tablet 3 mg on Mon and Mon, 2 mg the rest of the days - benzonatate (TESSALON PERLE) 100 mg capsule Take 2 capsules by mouth three times daily as needed for up to 10 days. - amLODIPine (NORVASC) 10 mg tablet Take 10 mg by mouth once daily. - Flaxseed Oil 1,000 mg cap Take 1,000 mg by mouth once daily. - metoprolol tartrate, short acting, (LOPRESSOR) 25 mg tablet Take 1 tablet by mouth twice daily. - furosemide (LASIX) 20 mg tablet Take 1 tablet by mouth once daily. - Ferrous Sulfate 325 mg (65 mg iron) tablet Take 325 mg by mouth twice daily. - Ascorbic Acid 100 mg tablet Take 100 mg by mouth once daily. - Garlic 1,000 mg cap Take 1 capsule by mouth once daily. - ELICEO ROOT (ELICEO, ZINGIBER OFFICINALIS,) 550 mg cap Take by mouth. - VITAMIN B COMPLEX NO.12-NIACIN ORAL Take by mouth. - cholecalciferol (VITAMIN D3) 50 mcg (2,000 unit) tablet Take 2,000 Units by mouth twice daily. - OTC PRODUCT Take 2 tablets Iron 28 mg daily - omeprazole 20 mg capsule Take 1 capsule by mouth once daily. - losartan (COZAAR) 100 mg tablet Take 1 tablet by mouth once daily. - tamsulosin (FLOMAX) 0.4 mg Take 1 capsule by mouth every other day. - OTC PRODUCT Flaxseed Oil 100 mg capsule once daily - OTC PRODUCT Vitamin B12 1000 mcg once daily - nitroglycerin sublingual 0.4 mg SL tablet Dissolve 1 tablet under the tongue as needed. FOR CHEST PAIN. IF NO RELIEF CALL 911 - WARFARIN SODIUM (COUMADIN ORAL) Take 3 mg by mouth once daily. 3 mg on Mon and Mon, 2mg the rest of the days - ASCORBIC ACID (VITAMIN C ORAL) Take 1,000 mg by mouth once daily. - zolpidem (AMBIEN) 5 mg tablet Take 1 tablet by mouth at bedtime as needed. FOR INSOMNIA - [place]-3 Fatty Acids 500 mg cap Take by mouth once daily. Meds Comments as of 06/26/2013: 06/26/13 unsure of meds/ change in BP meds per PCP Problem List As Of Date 03/05/2023 Noted Resolved Aorta Aneurysm [I71.9] 03/04/2010 CAD (Coronary Artery Disease) [I25.10] 03/04/2010 HTN (Hypertension) [I10] 03/04/2010 Cataract [H26.9] 02/18/2011 Vitamin D deficiency [E55.9] 02/18/2011 GERD (gastroesophageal reflux disease) [K21.9] 02/18/2011 Hyperlipidemia [E78.5] 02/18/2011 Long-term (current) use of anticoagulants [Z79.*02/18/2011 06/27/2012 Chronic anemia [D64.9] 02/18/2011 08/03/2012 DVT (deep venous thrombosis) [I82.409] 03/14/2011 06/27/2012 Medication side effects [T88.7XXA] 06/09/2011 06/11/2012 PE (pulmonary embolism) [I26.99] 06/11/2012 06/27/2012 Anemia, unspecified [D64.9] 06/28/2012 Esophagitis, unspecified [K20.90] 06/28/2012 Acute gastritis without mention of hemorrhage [*06/28/2012 Iron deficiency [E61.1] 08/03/2012 06/26/2013 Chronic kidney disease, stage III (moderate) [N*06/26/2013 Encounter Status:Closed by KRISTEN KINNEY on 03/05/23 [facility] Kacie 03-04-2023 CNOV Office Visit ([facility]) ---- JAMAR REED ([id number]) 1935 M Date Time Provider Department 03/04/23 2:30 PM [facility] During your visit today, we recorded the following information about you: Temperature Pulse Respiration Blood pressure 98 degrees 75/minute 16/minute 122/60 Weight 92.1 kg Justin Renee APRN.CANDLE WRAPPER 03/04/2023 2:45 PM Signed Subjective Cough Pertinent negatives include no chest pain, no ear pain, no headaches, no sore throat, no myalgias and no shortness of breath. Jamar Reed is a 87 year old male [...] Pneumonia 2010 Pulmonary embolus (HCC) Seizure (HCC) 1999 occured once only. Sleep disturbance, unspecified Varicella without mention of complication Chickenpox Whiplash 2008 PAST SURGICAL HISTORY Procedure Laterality Date COLONOSCOPY 2001 Dr. Giles Angulo COLONOSCOPY FLX DX W/COLLJ SPEC WHEN PFRMD 02/27/2012 Colonoscopy ESOPHAGOGASTRODUODE NOSCOPY TRANSORAL DIAGNOSTIC 06/28/2012 EGD INGUINAL HERNIA REPAIR [...] daily. (Patient not taking: Reported on 03/04/2023) ELICEO ROOT (ELICEO, ZINGIBER OFFICINALIS,) 550 mg cap Take by mouth. (Patient not taking: Reported on 03/04/2023) VITAMIN B COMPLEX NO.12-NIACIN ORAL Take by mouth. OTC PRODUCT Take 2 tablets Iron 28 mg daily omeprazole 20 mg capsule Take 1 capsule by mouth once daily. OTC PRODUCT Flaxseed Oil 100 mg capsule once daily OTC PRODUCT Vitamin B12 1000 mcg once daily [place]-3 Fatty Acids 500 mg cap Take by [...] note reviewed. Constitutional: Appearance: Normal appearance. HENT: (more content not included)... Normal [facility] FLUABV + SARS-CoV-2 Pnl Resp VON+prbon 03-04-2023 Influenza virus A and B RNA and SARS-CoV-2 (COVID-19) N gene panel VON+probe (Resp) COVID 19 RESULT: Detected The method used is RT-PCR or an equivalent NAAT method. Reference Range (the expected result in uninfected individuals): Not detected INFLUENZA A PCR: Not detected INFLUENZA B PCR: Not detected Abnormal [facility] Comment on above: Performed By: #### [id number] #### [facility] CLIA [id number] [address] [place] [address] [place] Basophil percentageOrdered B y: Dr. Britton on 2022 Bilirubin [Mass/Vol] 0.60 mg/dL 0.20-1.00 [facility] Comment on above: For patients on eltr ombopag therapy, use of Dimension [place] TBIL is not recommended. Chloride [Moles/Vol] 102 mmol/L 98-107 [facility] Glucose [Mass/Vol] 112 mg/dL 74-106 [facility] Comment on above: Fasting Glucose resu lt from 100 to 125 mg/dL suggests IMPAIRED HOMEOSTASIS per A.D.A. criteria. Potassium [Moles/Vol] 3.9 mmol/L 3.5-5.[address] [facility] Protein [Mass/Vol] 7.8 g/dL 6.4-8.2 [facility] Sodium [Moles/Vol] 137 mmol/L 136-145 [facility] WBC (Bld) [#/Vol] 7.5 10*3/uL 4.4-11.0 [facility] Blood erythrocytes count (nu mber/volume)Ordered By: Dr. Britton on 2022 RBC (Bld) [#/Vol] 3.69 10*6/uL 4.6-6.2 [facility] Blood hemoglobin measurement (mass/volume)Ordered By: Dr. Britton on 2022 Hemoglobin (Bld) [Mass/Vol] 11.3 g/dL 13.0-16.5 [facility] Blood platelet mean volumeOr dered By: Dr. Britton on 2022 Platelet mean volume (Bld) [Entitic vol] 10.9 fL 6.2-12.0 [facility] Determination of erythrocyte mean corpuscular volume (MCV)Ordered By: Dr. Britton on 2022 MCV (RBC) [Entitic vol] 94.0 fL 80-94 [facility] Hematocrit Auto (Bld) [Volum e fraction]Ordered By: Dr. Britton on 2022 Hematocrit (Bld) [Volume fraction] 34.7 % 40-54 [facility] INR in Blood by Coagulation assayOrdered By: Dr. Britton on 2022 INR Coag (Bld) [Relative time] 2.4 {INR} [facility] Laboratory - Chemistry and C hemistry - challengeOrdered By: Dr. Britton on 2022 ALP [Catalytic activity/Vol] 56 U/L 45-117 [facility] ALT [Catalytic activity/Vol] 30 U/L 16-61 [facility] CO2 [Moles/Vol] 26.0 mmol/L 21.0-32.0 [facility] Globulin (S) [Mass/Vol] 4.1 g/dL 2.2-4.2 [facility] Urea nitrogen/Creatinine [Mass ratio] 14.7 mg/mg 10-20 [facility] Laboratory - CoagulationOrde red By: Dr. Britton on 2022 PT Coag (PPP) [Time] 26.2 s 11.7-14.9 [facility] - Hematology and Cell countsOrdered By: Dr. Britton on 2022 Erythrocyte distribution width (RBC) [Entitic vol] 46.5 fL 35.1-43.9 [facility] Erythrocyte distribution width (RBC) [Ratio] 13.3 % 11.6-14.6 [facility] MCH (RBC) [Entitic mass] 30.6 pg 27.0-32.0 [facility] MCHC Auto (RBC) [Mass/Vol]Or dered By: Dr. Britton on 2022 MCHC (RBC) [Mass/Vol] 32.6 g/dL 32-[address] [facility] No Panel InformationOrdered By: Dr. Britton on 2022 Estimated GFR (MDRD) Amer 57 mL/min >60 [facility] Comment on above: GFR Calc Estimated GFR (MDRD) Non-Af Amer 47 mL/min >60 [facility] Comment on above: Non- GFR Calc Prostate Specific Antigen Screen 2.47 ng/mL 0.00-4.00 [facility] Comment on above: This test was perfor med using the TPSA assay method for [employer] chemistry system. Values obtained with differentassay methods cannot be used interchangably.When changing PSA assays in the course of monitoring apatient, additional sequential testing should be carriedout to confirm baseline values. Vitamin D 25-Hydroxy 45.6 ng/mL [facility] Comment on above: Vitamin D 25(OH) Sta tus Range Deficiency <20 ng/mL (50nmol/L) Insufficiency 20 - 30 ng/mL (50 - 75 nmol/L) Sufficiency 30 - 100 ng/mL (75 - 250 nmol/L) Toxicity >100 ng/mL (>250 nmol/L) Platelets bldOrdered By: Dr. Britton on 2022 Platelets (Bld) [#/Vol] 215 10*3/uL 150-450 [facility] Serum or plasma albumin nia urement (mass/volume)Ordered By: Dr. Britton on 2022 Albumin [Mass/Vol] 3.7 g/dL 3.2-5.0 [facility] Serum or plasma albumin/glob ulin mass ratioOrdered By: Dr. Britton on 2022 Albumin/Globulin [Mass ratio] 0.9 {ratio} 0.9-2.4 [facility] Serum or plasma calcium nia urement (mass/volume)Ordered By: Dr. Britton on 2022 Calcium [Mass/Vol] 9.5 mg/dL 8.5-10.1 [facility] Serum or plasma creatinine m easurement (mass/volume)Ordered By: Dr. Britton on 2022 Creatinine [Mass/Vol] 1.50 mg/dL 0.70-1.[address] [facility] Comment on above: The validity of the calculated GFR & GFRAA in patients over 70 years has not been determined. Clinical correlation is essential. Serum or plasma urea nitroge n measurement (mass/volume)Ordered By: Dr. Britton on 2022 Urea nitrogen [Mass/Vol] 22 mg/dL 7-18 [facility] Thin prep Papanicolaou smear with manual screeningOrdered By: Dr. Britton on 2022 Thin prep Papanicolaou smear with manual screening 30 U/L 15-37 [facility] Thin prep Papanicolaou smear with manual screening 9 5-15 [facility] Absolute lymphocyte counton 05-31-2022 Lymphocytes Auto (Unsp spec) [#/Vol] 1.30 10*3/uL 0.83-4.51 [facility] Work Phone: Basophil percentageon 2021 Basophil percentage 0 SEEN /hpf 0-5 [facility] Work Phone: Basophils/100 WBC (Bld) 0.8 % 0-1 [facility] Work Phone: Bilirubin [Mass/Vol] 0.40 mg/dL 0.20-1.00 [facility] Work Phone: Comment on above: For patients on eltr ombopag therapy, use of Dimension [place] TBIL is not recommended. Chloride [Moles/Vol] 103 mmol/L 98-107 [facility] Work Phone: Eosinophils/100 WBC (Bld) 1.3 % 0-5 [facility] Work Phone: Glucose [Mass/Vol] 107 mg/dL 74-106 [facility] Work Phone: Comment on above: Fasting Glucose resu lt from 100 to 125 mg/dL suggests IMPAIRED HOMEOSTASIS per A.D.A. criteria. Neutrophils (Bld) [#/Vol] 5.0 10*3/uL 2.0-7.7 [facility] Work Phone: Neutrophils/100 WBC (Bld) 65.9 % 47-70 [facility] Work Phone: Potassium [Moles/Vol] 4.2 mmol/L 3.5-5.1 [facility] Work Phone: Protein [Mass/Vol] 7.7 g/dL 6.4-8.2 [facility] Work Phone: Sodium [Moles/Vol] 137 mmol/L 136-145 [facility] Work Phone: WBC (Bld) [#/Vol] 7.6 10*3/uL 4.4-11.0 [facility] Work Phone: Bilirubin Test strip Ql (U)o n 05-31-2022 Bilirubin Ql (U) Negative Negative [facility] Work Phone: Blood erythrocytes count (nu mber/volume)on 05-31-2022 RBC (Bld) [#/Vol] 3.69 10*6/uL 4.6-6.[facility]: Blood hemoglobin measurement (mass/volume)on 05-31-2022 Hemoglobin (Bld) [Mass/Vol] 11.3 g/dL 13.0-16.5 [facility] Work Phone: Blood lymphocytes/100 leukoc yteson 05-31-2022 Lymphocytes/100 WBC (Bld) 17.1 % 19-41 [facility] Work Phone: Blood monocytes/100 leukocyt eson 05-31-2022 Monocytes/100 WBC (Bld) 14.2 % 0-10 [facility] Work Phone: Blood platelet mean volumeon 05-31-2022 Platelet mean volume (Bld) [Entitic vol] 10.0 fL 6.2-12.0 [facility] Work Phone: Determination of erythrocyte mean corpuscular volume (MCV)on 05-31-2022 MCV (RBC) [Entitic vol] 94.6 fL 80-94 [facility] Work Phone: Hematocrit Auto (Bld) [Volum e fraction]on 05-31-2022 Hematocrit (Bld) [Volume fraction] 34.9 % 40-54 [facility] Work Phone: Ketones Test strip Ql (U)on 05-31-2022 Ketones Ql (U) Negative Negative [facility] Work Phone: Laboratory - Chemistry and C hemistry - challengeon 05-31-2022 ALP [Catalytic activity/Vol] 52 U/L 45-117 [facility] Work Phone: ALT [Catalytic activity/Vol] 30 U/L 16-61 [facility] Work Phone: CO2 [Moles/Vol] 26.0 mmol/L 21.0-32.0 [facility] Work Phone: Globulin (S) [Mass/Vol] 4.1 g/dL 2.2-4.2 [facility] Work Phone: Urea nitrogen/Creatinine [Mass ratio] 17.2 mg/mg 10-20 [facility] Work Phone: Laboratory - Hematology and Cell countson 05-31-2022 Erythrocyte distribution width (RBC) [Entitic vol] 45.3 fL 35.1-43.9 [facility] Work Phone: Erythrocyte distribution width (RBC) [Ratio] 13.2 % 11.6-14.6 [facility] Work Phone: Immature granulocytes/100 WBC (Bld) 0.700 % 0.0-0.9 [facility] Work Phone: Comment on above: IG% - Immature Granu locytes (promyelocytes, myelocytes and metamyelocytes) > 1% indicates that a LEFT SHIFT is Present. MCH (RBC) [Entitic mass] 30.6 pg 27.0-32.0 [facility] Work Phone: Nucleated RBC/100 WBC (Bld) [Ratio] 0 % 0-5 [facility] Work Phone: MCHC Auto (RBC) [Mass/Vol]on 05-31-2022 MCHC (RBC) [Mass/Vol] 32.4 g/dL 32-[address] [facility] Work Phone: Mucus LM Ql (Urine sed)on Mucus Ql (Urine sed) 0 SEEN /hpf [facility] Work Phone: Nitrite Test strip Ql (U)on 05-31-2022 Nitrite Ql (U) Negative Negative [facility] Work Phone: No Panel Informationon 05-31 Estimated GFR (MDRD) Amer 65 mL/min >60 [facility] Work Phone: Comment on above: GFR Calc Estimated GFR (MDRD) Non-Af Amer 54 mL/min >60 [facility] Work Phone: Comment on above: Non- GFR Calc Urine Microalbumin/Creatinine Ratio 32.6 mg/g CRE <30 [facility] Work Phone: Platelets bldon 05-31-2022 Platelets (Bld) [#/Vol] 245 10*3/uL 150-450 [facility] Work Phone: Protein Test strip Ql (U)on 05-31-2022 Protein Ql (U) Negative Negative [facility] Work Phone: Serum or plasma albumin nia urement (mass/volume)on 05-31-2022 Albumin [Mass/Vol] 3.6 g/dL 3.2-5.0 [facility] Work Phone: Serum or plasma albumin/glob ulin mass ratioon 05-31-2022 Albumin/Globulin [Mass ratio] 0.9 {ratio} 0.9-2.4 [facility] Work Phone: Serum or plasma calcium nia urement (mass/volume)on 05-31-2022 Calcium [Mass/Vol] 9.1 mg/dL 8.5-10.1 [facility] Work Phone: Serum or plasma creatinine m easurement (mass/volume)on 05-31-2022 Creatinine [Mass/Vol] 1.34 mg/dL 0.70-1.[address] [facility] Work Phone: Comment on above: The validity of the calculated GFR & GFRAA in patients over 70 years has not been determined. Clinical correlation is essential. Serum or plasma urea nitroge n measurement (mass/volume)on 05-31-2022 Urea nitrogen [Mass/Vol] 23 mg/dL 7-18 [facility] Work Phone: Squamous epithelial cells de tection in urine sediment by light microscopyon 05-31-2022 Epithelial cells.squamous LM Ql (Urine sed) 0 SEEN /hpf 0-5 [facility] Work Phone: Thin prep Papanicolaou smear with manual screeningon 05-31-2022 Thin prep Papanicolaou smear with manual screening 28 U/L 15-37 [facility] Work Phone: Thin prep Papanicolaou smear with manual screening 8 5-15 [facility] Work Phone: Thin prep Papanicolaou smear with manual screening 5.1 mg/L NO RANGE EST. [facility] Work Phone: Urine blood detectionon - RBC Ql (U) 10 /ul Negative [facility] Work Phone: RBC Ql (U) 0 SEEN /hpf 0-5 [facility] Work Phone: Urine clarityon 05-31-2022 Clarity (U) Clear Clear [facility] Work Phone: Urine color determinationon 05-31-2022 Color (U) Straw Yellow [facility] Work Phone: Urine creatinine measurement (mass/volume)on 05-31-2022 Creatinine (U) [Mass/Vol] 15.70 mg/dL NO RANGE EST. [facility] Work Phone: Urine glucose detectionon Glucose Ql (U) Normal mg/dl Normal [facility] Work Phone: Urine leukocyte esterase det ection by dipstickon 05-31-2022 Leukocyte esterase Test strip Ql (U) Negative Negative [facility] Work Phone: Urine pHon 05-31-2022 pH (U) 7.0 [pH] 5.0 - 8.0 [facility] Work Phone: Urine sediment bacteria coun t by microscopy (number/high power field)on 05-31-2022 Bacteria LM.HPF (Urine sed) [#/Area] 0 /[HPF] None Seen [facility] Work Phone: Urine specific gravity measu rementon 05-31-2022 Specific gravity (U) [Rel density] 1.005 1.002-1.030 [facility] Work Phone: Urobilinogen Auto test strip Ql (U)on 05-31-2022 Urobilinogen Ql (U) Normal mg/dl Normal [facility] Work Phone: Culture, urineon 02-18-2022 Bacteria identified Cx Nom (U) Culture exhibits no growth. [facility] Work Phone: Basophil percentageon 2021 Chloride [Moles/Vol] 103 mmol/L 98-[address] [facility] Work Phone: Cholesterol [Mass/Vol] 103 mg/dL <200 [facility] Work Phone: Comment on above: <200 mg/dL Desirable 200-240 mg/dL Borderline >240 mg/dL High Risk Glucose [Mass/Vol] 101 mg/dL 74-106 [facility] Work Phone: Comment on above: Fasting Glucose resu lt from 100 to 125 mg/dL suggests IMPAIRED HOMEOSTASIS per A.D.A. criteria.Please note revised GLUCOSE reference range effective 2017. Potassium [Moles/Vol] 4.4 mmol/L 3.5-5.[address] [facility] Work Phone: Sodium [Moles/Vol] 136 mmol/L 136-145 [facility] Work Phone: Triglyceride [Mass/Vol] 94 mg/dL [facility] Work Phone: Comment on above: The drugs N-Acetylcy steine and Metamizole may falsely depress this assay.Serum Triglycerides Reference Interval Normal <150 mg/dL Borderline high 150 - 199 mg/dL High 200 - 499 mg/dL Very High > or = 500 mg/dL WBC (Bld) [#/Vol] 9.2 10*3/uL 4.4-11.0 [facility] Work Phone: Blood erythrocytes count (nu mber/volume)on 10-28-2021 RBC (Bld) [#/Vol] 3.64 10*6/uL 4.6-6.2 [facility] Work Phone: Blood hemoglobin measurement (mass/volume)on 10-28-2021 Hemoglobin (Bld) [Mass/Vol] 11.4 g/dL 13.0-16.5 [facility] Work Phone: Blood platelet mean volumeon 10-28-2021 Platelet mean volume (Bld) [Entitic vol] 10.4 fL 6.2-12.0 [facility] Work Phone: Determination of erythrocyte mean corpuscular volume (MCV)on 10-28-2021 MCV (RBC) [Entitic vol] 93.4 fL 80-94 [facility] Work Phone: Hematocrit Auto (Bld) [Volum e fraction]on 10-28-2021 Hematocrit (Bld) [Volume fraction] 34.0 % 40-54 [facility] Work Phone: Laboratory - Chemistry and C hemistry - challengeon 10-28-2021 CO2 [Moles/Vol] 25.0 mmol/L 21.0-32.0 [facility] Work Phone: Urea nitrogen/Creatinine [Mass ratio] 17.3 mg/mg 10-20 [facility] Work Phone: Laboratory - Hematology and Cell countson 10-28-2021 Erythrocyte distribution width (RBC) [Entitic vol] 46.2 fL 35.1-43.9 [facility] Work Phone: Erythrocyte distribution width (RBC) [Ratio] 13.6 % 11.6-14.6 [facility] Work Phone: MCH (RBC) [Entitic mass] 31.3 pg 27.0-32.0 [facility] Work Phone: MCHC Auto (RBC) [Mass/Vol]on 10-28-2021 MCHC (RBC) [Mass/Vol] 33.5 g/dL 32-[address] [facility] Work Phone: No Panel Informationon 10-28 Estimated GFR (MDRD) Amer 63 mL/min >60 [facility] Work Phone: Comment on above: GFR Calc Estimated GFR (MDRD) Non-Af Amer 52 mL/min >60 [facility] Work Phone: Comment on above: Non- GFR Calc Prostate Specific Antigen Screen 1.57 ng/mL 0.00-4.00 [facility] Work Phone: Comment on above: This test was perfor med using the TPSA assay method for the[employer] chemistry system. Values obtained with differentassay methods cannot be used interchangably.When changing PSA assays in the course of monitoring apatient, additional sequential testing should be carriedout to confirm baseline values. Platelets bldon 10-28-2021 Platelets (Bld) [#/Vol] 222 10*3/uL 150-450 [facility] Work Phone: Serum or plasma calcium nia urement (mass/volume)on 10-28-2021 Calcium [Mass/Vol] 9.4 mg/dL 8.5-10.1 [facility] Work Phone: Serum or plasma cholesterol in HDL measurement (mass/volume)on 10-28-2021 Cholesterol in HDL [Mass/Vol] 50 mg/dL [facility] Work Phone: Comment on above: The drugs N-Acetylcy steine and Metamizole may falsely depress this assay. Reference Range HDL <40 mg/dL Low HDL Cholesterol HDL >or= 60 mg/dL High HDL Cholesterol Serum or plasma cholesterol in VLDL measurement (mass/volume)on 10-28-2021 Cholesterol in VLDL [Mass/Vol] 19 mg/dL 5-40 [facility] Work Phone: Serum or plasma creatinine m easurement (mass/volume)on 10-28-2021 Creatinine [Mass/Vol] 1.39 mg/dL 0.70-1.[address] [facility] Work Phone: Comment on above: The validity of the calculated GFR & GFRAA in patients over 70 years has not been determined. Clinical correlation is essential. Serum or plasma low density lipoprotein (LDL) cholesterol measurement (mass/volume)on 10-28-2021 Cholesterol in LDL [Mass/Vol] 34 mg/dL 0-130 [facility] Work Phone: Serum or plasma urea nitroge n measurement (mass/volume)on 10-28-2021 Urea nitrogen [Mass/Vol] 24 mg/dL 7-18 [facility] Work Phone: Thin prep Papanicolaou smear with manual screeningon 10-28-2021 Thin prep Papanicolaou smear with manual screening 8 5-15 [facility] Work Phone: Culture, urine Bacteria identified Cx Nom (U) Culture exhibits no growth. [facility] Work Phone: Encounters Encounter Date Encounter Type Care Provider Facility Start: 05-14-2025 End: 05-14-[address] Eliu Britton MD Work Phone: -Laboratory Specimen Start: 05-14-2025 End: 05-14-[address] Eliu Britton MD -Laboratory Specimen Work Phone: Start: 05-14-2025 End: 05-14-2025 ambulatory Eliu Britton Facility:[facility] Start: 05-13-2025 Encounter for genera l adult medical examination without abnormal findings Eliu Britton [facility] Start: 05-08-2025 End: 05-08-[address] Eliu Britton MD Work Phone: -Laboratory [facility] Start: 05-08-2025 End: 05-08-[address] Eliu Britton MD -Laboratory [facility] Start: 05-08-2025 End: 05-08-2025 ambulatory Eliu Britton Facility:[facility] Start: 01-30-2025 End: 01-30-[address] Eliu Britton MD Work Phone: [facility] Work Phone: Start: 01-30-2025 End: 01-30-[address] [facility]: 01-30-2025 End: 01-30-2025 ambulatory Eliu Britton Facility:[facility] Start: 12-14-2023 End: 12-14-2023 ambulatory [facility] Work Phone: Start: 12-14-2023 End: 12-14-2023 Patient encounter procedure [facility] Start: 09-15-2023 End: 09-15-2023 ambulatory [facility] Work Phone: Start: 09-15-2023 End: 09-15-2023 Patient encounter procedure [facility] Work Phone: Start: 08-14-2023 End: 08-14-2023 ambulatory [facility] Work Phone: Start: 08-14-2023 End: 08-14-2023 Patient encounter procedure [facility] Work Phone: Start: 03-05-2023 Telephone encounter Justin Reese APRN.CANDLE WRAPPER Work Phone: [facility] Comment on above: Results Start: 03-04-2023 End: 03-04-2023 ambulatory Facility:[facility] Start: 2022 End: 2022 ambulatory [facility] Work Phone: Start: 2022 End: 2022 Patient encounter procedure [facility]-Laboratory, [place] Start: 05-31-2022 End: 05-31-2022 [facility] Start: 02-18-2022 End: 02-18-2022 Patient encounter procedure [facility]-Laboratory, [place] Start: 12-24-2021 End: 12-24-2021 Patient encounter procedure [facility]-Radiology, [place] Start: 10-28-2021 End: 10-28-2021 [facility] Procedures Date Procedure Procedure Detail Performing Clinician Start: 05-08-2025 Prostate specific an tigen measurement Dr. Eliu Britton MD Work Phone: Comment on above: This test was perfor med using the [employer] tPSA method. Measured values of a patient sample can vary depending on the testing procedure used. PSA values determined on patient samples by different testing procedures cannot be used interchangeably. If there is a change in PSA assays while monitoring therapy, sequential testing should be performed to confirm baseline values. Start: 01-30-[address] reticulocyt e fraction Dr. Eliu Britton MD Work Phone: Start: 02-18-2022 Urine culture Start: 12-24-2021 Diagnostic radiograp hy of abdomen Bacteria identified in Urine by Culture Urine culture Plan of Treatment Date Care Activity Detail Author Start: 06-23-2023 Influenza vaccination INFLUENZA (Sea son Ended) [facility] Start: 10-23-2022 ADVANCE DIRECTIVE DISCUSSION ADVANCE DIRECTIVE DISCUSSION [facility] Start: 10-23-2022 DEPRESSION ASSESSMENT DEPRESSION ASS ESSMENT [facility] Start: 03-09-2020 DIABETES SCREEN DIABETES SCREEN [facility] Start: 10-23-2018 Urine microalbumin profile DTA P,TDAP,TD (2 - Td or Tdap) [facility] Start: 03-14-2018 Hepatitis B surface antibody level LDL CHOLESTEROL [facility] Start: 07-23-2011 PNEUMOCOCCAL: 65+ (2 - PCV) PNEUMOCOCCAL: 65+ (2 - PCV) [facility] Start: 1987 SHINGRIX VACCINE (1 of 2) JEWELL GRIX VACCINE (1 of 2) [facility] Start: [birth year]-28-1936 COVID-19 VACCINE (#1) COVID-19 VACCI NE (#1) [facility] Immunizations Immunization Date Immunization Notes Care Provider Fa cility 07-23-2010 influenza virus vacc ine, unspecified formulation Justin Renee COLLAR SETTER OVERLOCK.CANDLE WRAPPER Work Phone: [facility] 07-23-2010 pneumococcal polysaccharide vaccine, 23 valent Justin Renee APRN.CANDLE WRAPPER Work Phone: [facility] 10-23-2008 tetanus toxoid, redu sammie diphtheria toxoid, and acellular pertussis vaccine, adsorbed Justin Renee APRN.CANDLE WRAPPER Work Phone: [facility] Payers Date Payer Category Payer Self-pay [id number] 2021 Medicare [employer] MEDICARE A ETNA MEDICARE PPO [id number] 2021-Present [phone] [address] [place] [address] PPO [id number] 2021 Private Health Insurance 101 [id number] 2017 [id number] Unknown [id number] Unknown [id number] Social History Date Type Detail Facility Start: 10-30-2019 End: 10-30-2019 Tobacco smoking status TXIS Unknown if ever smoked [facility] Start: 10-11-2019 None [facility] Start: 10-11-2019 Alone [facility] Start: 10-11-2019 Non-smoker [facility] Start: 1935 Sex Assigned At Male [facility] Start: 10-30-2019 End: 03-04-2023 Tobacco smoking status NHIS Ex-smoker [facility] End: 10-23-1957 History of tobacco use Current smoker [facility] End: 10-23-1957 History of tobacco use Cigarette Smoker [facility] History of tobacco use Pipe Smoker [facility] History of tobacco use Cigar Smoker [facility] Start: 03-04-2023 Cigarettes smoked current (pack per day) - Reported 0.3 [facility] Start: 03-04-2023 Tobacco use and exposure Smokeless tobacco non-user [facility] Start: 03-04-2023 Alcohol intake Current non-dr aircraft magneto mechanic of alcohol (finding) [facility] Start: 03-04-2023 Tobacco Comment Pt smoked 1/4 pack daily for 1 year. [facility] Start: 1935 Sex Assigned At Not on file [facility] Start: 02-05-2025 Sex Male (finding) [facility] Note 03-05-2023 Telephone Encounter - Kristen Kinney MA - 03/05/2023 10:35 AM EDTTelephone Encounter - Kristen Kinney MA - 03/05/2023 10:33 AM EDT Note Date & Type Note Facility 03-05-2023 Miscellaneous Notes Formattin g of this note might be different from the original. Pt was notified of the results. Pt verbalized understanding. Kristen Kinney MA ----- Message from Justin Renee APRN.CANDLE WRAPPER sent at 03/05/2023 8:14 AM EDT ----- [...] He may discuss this with a provider. Justin Renee APRN.CANDLE WRAPPER documented in this encounter [facility] Progress note 03-04-2023 Note Date & Type Note Facility 03-04-2023 Note HNO ID: [id number] Author: Justin Renee APRN.CANDLE WRAPPER Service: ? Author Type: Nurse Practitioner Type: Progress Notes Filed: 03/04/2023 2:45 PM Note Text: Subjective Cough Pertinent negatives include no chest pain, no ear pain, no headaches, no sore throat, no myalgias and no shortness of breath. Jamra Reed is a 87 year old male [...] mg tablet 3 mg on Mon and Mon, 2 mg the rest of the days [...] daily. (Patient not taking: Reported on 03/04/2023) ELICEO ROOT (ELICEO, ZINGIBER OFFICINALIS,) 550 mg cap Take by mouth. (Patient not taking: Reported on 03/04/2023) VITAMIN B COMPLEX NO.12-NIACIN ORAL Take by mouth. OTC PRODUCT Take 2 tablets Iron 28 mg daily omeprazole 20 mg capsule Take 1 capsule by mouth once daily. OTC PRODUCT Flaxseed Oil 100 mg capsule once daily OTC PRODUCT Vitamin B12 1000 mcg once daily [place]-3 Fatty Acids 500 mg cap Take by [...] oropharyngeal (more content not included)... [facility] History of Past illness Narrative 08-03-2012 Note Date & Type Note Facility 08-03-2012 History of Past i llness Narrative Problem Noted Date Resolved Date Iron deficiency 08/03/2012 06/26/2013 PE (pulmonary embolism) 06/11/2012 06/27/20 12 Medication side effects 06/09/2011 06/11/20 12 DVT (deep venous thrombosis) 03/14/201102/2012 Long-term (current) use of anticoagulants 201006/27/2012 Chronic anemia 02/18/2011 08/03/2012 documented as of this encounter (statuses as of 03/05/2023) [facility] Evaluation note Note Date & Type Note Facility Evaluation note No assessment information availa ble [facility] Work Phone: Reason for referral (narrative) Note Date & Type Note Facility Reason for referral (narrative) No reason for referral information available [facility] Work Phone: Chief Complaint and Reason for Visit Chief Complaint EORDER Functional dyspepsia Chief Complaint LABS AND URINE Family History No Family History Records Found Relationship Condition Age at Onset Recorded Date/T alcides Unknown Family History?No pe rtinent history Unknown October 11, 2019 9:09am Relationship Condition Age at Onset Recorded Date/T alcides Unknown Family History?No pe rtinent history Unknown October 11, 2019 8:09am Advance Directives No Advanced Directives Records Found Advance Directive Response Recorded Date/ Time Advance Directives No September 2:02pm Living Will Yes October 11, 2 019 3:08am Power of Chute Puller Yes October 11, 2019 3:08am Advance Directive Response Recorded Date/ Time Advance Directives No September 1:02pm Living Will Yes October 11, 2 019 2:08am Power of Chute Puller Yes October 11, 2019 2:08am Advance Directive Response Recorded Date/ Time Advance Directives No September 2:02pm Health Concerns Infection Onset Date Last Indicated Resolved Time COVID-19 Confirmed 03/04/2023 03/04/2023 Summary Purpose Additional Source Comments Goals (unrecognized section and content) Goals may be documented in a n alternate sectionGoals may be documented in an alternate sectionGoals may be documented in an alternate sectionGoals may be documented in an alternate sectionGoals may be documented in an alternate sectionGoals may be documented in an alternate sectionGoals may be documented in an alternate sectionGoals may be documented in an alternate sectionGoals may be documented in an alternate section Care Teams (unrecognized sec tion and content) Team Status: Active Member Role Status Dates Dr. Eliu Britton MD Family Provider Active Dr. Eliu Britton MD Primary Care Provider Active Team Status: Inactive Member Role Status Dates Dr. Eliu Britton MD Primary Care Provide r, Attending Provider, Referring Provider Active Team Status: Inactive Member Role Status Dates Dr. Eliu Britton MD Primary Care Provider, Attending Brady bhatt Active Team Status: Inactive Member Role Status Dates Dr. Eliu Britton MD Primary Care Provider Active Start: January 30, 2025 End: January 30, 2025 Dr. Eliu Britton MD Attending Provider Active St art: January 30, 2025 End: January 30, 2025 Dr. Eliu Britton MD Referring Provider Active St art: January 30, 2025 End: January 30, 2025 Team Status: Active Member Role/Relationship Status Dates Dr. Eliu Britton MD Family Provider Active Dr. Eliu Britton MD Primary Care Provider Active Team Status: Inactive Member Role/Relationship Status Dates Dr. Eliu Britton MD Primary Care Provider Active Start: January 30, 2025 End: January 30, 2025 Dr. Eliu Britton MD Attending Provider Active St art: January 30, 2025 End: January 30, 2025 Dr. Eliu Britton MD Referring Provider Active St art: January 30, 2025 End: January 30, 2025 Team Status: Inactive Member Role/Relationship Status Dates Dr. Eliu Britton MD Primary Care Provider Active Start: May 08, 2025 End: May 08, 2025 Dr. Eliu Britton MD Attending Provider Active St art: May 08, 2025 End: May 08, 2025 Dr. Eliu Britton MD Referring Provider Active St art: May 08, 2025 End: May 08, 2025 Team Status: Active Member Role/Relationship Status Dates Dr. Eliu Britton MD Primary Care Provider Active Team Status: Inactive Member Role/Relationship Status Dates Dr. Eliu Britton MD Primary Care Provider Active Start: May 14, 2025 End: May 14, 2025 Dr. Eliu Britton MD Attending Provider Active St art: May 14, 2025 End: May 14, 2025 Dr. Eliu Britton MD Referring Provider Active St art: May 14, 2025 End: May 14, 2025 Source Comments (unrecognize d section and content) In the event this informatio n is protected by the Federal Confidentiality of Alcohol and Drug Abuse Patient Records regulations: The Federal rules restrict any use of the information to criminally investigate or prosecute any alcohol or drug abuse patient.[facility] Reason for Visit (unrecogniz ed section and content) Reason Comments Results (unrecognized sect ion and content) No Status Records FoundNo Status Records Found INFORMATION SOURCE (unrecogn ized section and content) DATE CREATED AUTHOR 03/05/2023 [facility] DATE CREATED AUTHOR AUTHOR'S ORGANIZ ATION 05/22/2025 [facility] FOR RECORDS PERTAINING TO PATIENTS WHO ARE [...] BE BASED ON THE PRIMARY CLINICAL RECORDS. [facility] [employer] [facility]. provides no warranty or guarantee of the accuracy or completeness of information in this document.
--- OUTSIDE RECORDS SUMMARY | 2025-08-13 10:50 | XMS RPT_ITS | CCD ---
Author Organization [facility] Care Team Providers Care Electronic Equipment Repair[employer] Name Role Phone Unavailable Primary Care Provider Rossy Britton MD, Dr. Nowak Primary Care Provider Tobi ELLIS, Dr. Nowak Attending Provider [phone] Dr. Eliu Britton MD Referring Provider [phone] Eliu Britton Primary Care Unavailable Eliu Britton Attending Unavailable Eliu Britton Referring Unavailable Eliu Britton Primary Care Unavailable Eliu Britton Attending Unavailable Eliu Britton Referring Unavailable Eliu Britton Attending Unavailable Eliu Britton Referring Unavailable Eliu Britton Primary Care Unavailable Allergies Allergy Classification Reported Allergen(s) Allergy Type Date of Onset Reaction(s) Facility (11 sources) Naproxen; Translations: [NAPROXEN] Drug Allergy 08-25-2009 Other [facility] (1 source) Naproxen Drug Allergy 10-29-2019 [facility] Repository Medications Current Medications Medication Drug [...] Comment on above: Take 2 capsules by [facility] three times daily as needed for up [...] on above: Take 1 capsule by mo [facility] once daily. Wkskpfymjucr-Q2-H3-B12 (6 sources) Start: 07-15-2017 Pkryireuvyhz-C0-O9-B12 Active 1 EACH PO DAILY July 15, 2017 3:59am Start: 07-15-2017 Levomefolate-B 2-B6-B12 Active 1 EACH PO DAILY July 14, 2017 11:00pm Start: 07-15-2017 Levomefolate-B 2-B6-B12 Active 1 EACH PO DAILY July 15, 2017 12:00am Tqiyzfcvlsnf-G7-O9-B12 1 EAC H tablet (3 sources) Start: [...] on above: Take 1 capsule by mo [facility] every other day. Completed/Discontinued Medications Medication [...] CHEST PAIN. IF NO RELIEF CALL 911 Inez-3 Fatty Acids 500 mg cap (1 source) Start: 06-09-20 11 Inez-3 Fatty Acids 500 mg cap Take by [...] on above: Take 1 capsule by mo [facility] once daily. OTC PRODUCT (3 sources) [...] Coronary arteriosclerosis; Translations: [Atherosclerotic heart disease of [place] coronary artery without angina pectoris] Onset: 03-04-2010 [...] 05-14-2025 Creatinine [Mass/Vol] 109.00 mg/dL Normal 39.00-259.00 [facility] Comment on above: Performed By: #### L 502.0250 #### [facility] [address] [place] [id number] MALB:CREAT UNABLE TO CALCULATE Normal <30 mg/g CRE [facility] Comment on above: Performed By: #### L 502.0250 #### [facility] [address] [place], [place], [id number] MICROALBUMIN,UR < 12.0 Normal <20 mg/L [facility] Comment on above: Performed By: #### L 502.0250 #### [facility] [address] [place] [id number] Microalbumin/creat ratio urO rdered By: Eliu Britton on 05-14-2025 Urine microalbumin/creatinine ratio measurement UNABLE TO CALCULATE mg/g CRE <30 [facility] Random urine creatinine nia urement (mass/volume)Ordered By: Eliu Britton on 05-14-2025 Creatinine Unsp time (U) [Mass/Vol] 109.00 mg/dL 39.00-259.00 [facility] Urine albumin measurement [facility] detection limit of 20 mg/L or less (mass/volume)Ordered By: Eliu Britton on 05-14-2025 Albumin DL <= 20 mg/L (U) [Mass/Vol] < 12.0 mg/L <20 mg/L [facility] Anion gap in Serum or Plasma Ordered By: Eliu Britton on 05-08-2025 Anion gap [Moles/Vol] 13 mmol/L 5-[address] [facility] BUN/creatinine ratioOrdered By: Eliu Britton on 05-08-2025 Urea nitrogen/Creatinine [Mass ratio] 16.8 mg/mg 10-20 [facility] Bilirubin, totalOrdered By: Eliu Britton on 05-08-2025 Bilirubin [Mass/Vol] 0.52 mg/dL 0.00-1.30 [facility] Carbon dioxide, total [Moles /volume] in Central venous bloodOrdered By: Eliu Britton on 05-08-2025 CO2 [Moles/Vol] 24.0 mmol/L 21.0-32.0 [facility] Chloride assayOrdered By: Kwesi Britton on 05-08-2025 Chloride [Moles/Vol] 93 mmol/L Low 98-108 [facility] Comprehensive Metabolic Prof ilon 05-08-2025 Albumin [Mass/Vol] 4.1 g/dL Normal 3.4-4.8 [facility] Comment on above: Performed By: #### L 502.0250, L501.9910, L500.4050 #### [facility] [address] [place], [address] Albumin/Globulin [Mass ratio] 1.3 {ratio} Normal 0.9-2.4 [facility] Comment on above: Performed By: #### L 502.0250, L501.9910, L500.4050 #### [facility] [address] [place], [address] ALK PHOS 61 U/L Normal 40-129 [facility] Comment on above: Performed By: #### L 502.0250, L501.9910, L500.4050 #### [facility] [address] [place], [address] ALT [Catalytic activity/Vol] 16 U/L Normal <=46 [facility] Comment on above: Performed By: #### L 502.0250, L501.9910, L500.4050 #### [facility] [address] [place], [address] AST [Catalytic activity/Vol] 30 U/L Normal <=37 [facility] Comment on above: Performed By: #### L 502.0250, L501.9910, L500.4050 #### [facility] [address] [place], [address] Bilirubin [Mass/Vol] 0.52 mg/dL Normal 0.00-1.30 [facility] Comment on above: Performed By: #### L 502.0250, L501.9910, L500.4050 #### [facility] [address] [place], [address] BUN/CRE 16.8 RATIO Normal 10-20 [facility] Comment on above: Performed By: #### L 502.0250, L501.9910, L500.4050 #### [facility] [address] [place], [address] Calcium [Mass/Vol] 9.8 mg/dL Normal 7.6-11.0 [facility] Comment on above: Performed By: #### L 502.0250, L501.9910, L500.4050 #### [facility] [address] [place], [address] Chloride [Moles/Vol] 93 mmol/L Low 98-108 [facility] Comment on above: Performed By: #### L 502.0250, L501.9910, L500.4050 #### [facility] [address] [place], [address] CO2 [Moles/Vol] 24.0 mmol/L Normal 21.0-32.0 [facility] Comment on above: Performed By: #### L 502.0250, L501.9910, L500.4050 #### [facility] [address] [place], [address] Creatinine [Mass/Vol] 1.18 mg/dL Normal 0.70-1.[address] [facility] Comment on above: Performed By: #### L 502.0250, L501.9910, L500.4050 #### [facility] [address] [place], [address] GAP 13 Normal 5-15 [facility] Comment on above: Performed By: #### L 502.0250, L501.9910, L500.4050 #### [facility] [address] [place], [address] GFR/1.73 sq M.predicted among non-blacks MDRD (S/P/Bld) [Vol rate/Area] 60 mL/min/{1.73_m2} Normal >60 [facility] Comment on above: Result Comment: mL/m in/1.73m2 CKD-EPI Creatinine Equation (2020) Performed By: #### L 502.0250, L501.9910, L500.4050 #### [facility] [address] [place], [address] Globulin (S) [Mass/Vol] 3.0 g/dL Normal 2.2-4.2 [facility] Comment on above: Performed By: #### L 502.0250, L501.9910, L500.4050 #### [facility] [address] [place], [address] Glucose [Mass/Vol] 157 mg/dL High 70-99 [facility] Comment on above: Performed By: #### L 502.0250, L501.9910, L500.4050 #### [facility] [address] [place], [address] Potassium [Moles/Vol] 4.1 mmol/L Normal 3.3-5.[address] [facility] Comment on above: Performed By: #### L 502.0250, L501.9910, L500.4050 #### [facility] [address] [place], [address] Sodium [Moles/Vol] 130 mmol/L Low 133-145 [facility] Comment on above: Performed By: #### L 502.0250, L501.9910, L500.4050 #### [facility] [address] [place], [address] T PROT 7.1 g/dL Normal 5.9-8.4 [facility] Comment on above: Performed By: #### L 502.0250, L501.9910, L500.4050 #### [facility] [address] [place], [address] Urea nitrogen [Mass/Vol] 20 mg/dL High 4-19 [facility] Comment on above: Performed By: #### L 502.0250, L501.9910, L500.4050 #### [facility] [address] [place], [address] Glomerular filtration rate ( GFR) estimation/1.73 sq m using serum, plasma, or whole bOrdered By: Eliu Britton on 05-08-2025 GFR/1.73 sq M.predicted among non-blacks MDRD (S/P/Bld) [Vol rate/Area] 60 mL/min/{1.73_m2} >60 [facility] Comment on above: mL/min/1.73m2 CKD-EP I Creatinine Equation (2020) Laboratory - Chemistry and C hemistry - challengeOrdered By: Eliu Britton on 05-08-2025 AST [Catalytic activity/Vol] 30 U/L <38 [facility] Microalb:Creat Ratio,Random URon 05-08-2025 MALB:CREAT Normal <30 mg/g CRE [facility] Comment on above: Result Comment: UTO Performed By: #### L 502.0250, L501.9910, L500.4050 #### [facility] [address] [place], [address] MICROALBUMIN,UR Normal <20 mg/L [facility] Comment on above: Result Comment: UTO Performed By: #### L 502.0250, L501.9910, L500.4050 #### [facility] [address] [place], [address] UR CREAT Normal 39.00-259.00 [facility] Comment on above: Result Comment: UTO Performed By: #### L 502.0250, L501.9910, L500.4050 #### [facility] [address] [place], [address] PSA,Total - Annual Screenon 05-08-2025 PSA,TOT SCREEN 1.27 ng/mL Normal 0.02-4.00 [facility] Comment on above: Result Comment: This [...] By: #### L 502.0250, L501.9910, L500.4050 #### [facility] [address] [place], [address] Potassium measurement (mass/ volume)Ordered By: Eliu Britton on 05-08-2025 Potassium (Unsp spec) [Mass/Vol] 4.1 mmol/L 3.3-5.1 [facility] Serum creatinine measurement (mass/volume)Ordered By: Eliu Britton on 05-08-2025 Creatinine [Mass/Vol] 1.18 mg/dL 0.70-1.[address] [facility] Serum globulin measurementOr dered By: Eliu Britton on 05-08-2025 Globulin (S) [Mass/Vol] 3.0 g/dL 2.2-4.2 [facility] Serum glucose measurement (m ass/volume)Ordered By: Eliu Britton on 05-08-2025 Glucose [Mass/Vol] 157 mg/dL High 70-99 [facility] Serum or plasma alanine sinclair otransferase (ALT) measurementOrdered By: Eliu Britton on 05-08-2025 ALT [Catalytic activity/Vol] 16 U/L <47 [facility] Serum or plasma albumin nia urement (mass/volume)Ordered By: Eliu Britton on 05-08-2025 Albumin [Mass/Vol] 4.1 g/dL 3.4-4.8 [facility] Serum or plasma albumin/glob ulin mass ratioOrdered By: Eliu Britton on 05-08-2025 Albumin/Globulin [Mass ratio] 1.3 {ratio} 0.9-2.4 [facility] Serum or plasma alkaline yao sphatase measurementOrdered By: Eliu Britton on 05-08-2025 ALP [Catalytic activity/Vol] 61 U/L 40-129 [facility] Serum or plasma calcium nia urement (mass/volume)Ordered By: Eliu Britton on 05-08-2025 Calcium [Mass/Vol] 9.8 mg/dL 7.6-11.0 [facility] Serum or plasma urea nitroge n measurement (mass/volume)Ordered By: Eliu Britton on 05-08-2025 Urea nitrogen [Mass/Vol] 20 mg/dL High 4-19 [facility] Sodium levelOrdered By: Eliu Britton on 05-08-2025 Sodium [Moles/Vol] 130 mmol/L Low 133-145 [facility] Total proteinOrdered By: Ariella Britton on 05-08-2025 Protein [Mass/Vol] 7.1 g/dL 5.9-8.4 [facility] Absolute lymphocyte countOrd ered By: Eliu Britton on 01-30-2025 Lymphocytes Auto (Unsp spec) [#/Vol] 1.28 10*3/uL 0.83-4.51 [facility] Absolute neutrophil countOrd ered By: Eliu Britton on 01-30-2025 Neutrophils (Bld) [#/Vol] 5.0 10*3/uL 2.0-7.7 [facility] Anion gap in Serum or Plasma Ordered By: Eliu Britton on 01-30-2025 Anion gap [Moles/Vol] 13 mmol/L 5-[address] [facility] Automated lymphocyte count a s percentage of total leukocytesOrdered By: Eliu Britton on 01-30-2025 Lymphocytes/100 WBC Auto (Unsp spec) 16.8 % Low 19-41 [facility] BUN/creatinine ratioOrdered By: Eliu Britton on 01-30-2025 Urea nitrogen/Creatinine [Mass ratio] 17.2 mg/mg 10- [facility] Basophil percentageOrdered B y: Eliu Britton on 01-30-2025 Basophils/100 WBC (Bld) 0.7 % 0-1 [facility] Bilirubin, totalOrdered By: Eliu Britton on 01-30-2025 Bilirubin [Mass/Vol] 0.33 mg/dL 0.00-1.30 [facility] CBC W/Diff, Automatedon 01-21 Absolute Lymph 1.28 X10 3/uL Normal 0.83-4.51 [facility] Comment on above: Order Comment: Order Date: 01/30/25 Order Info: [id number] - CBCD Order Info: [id number] - RETIC Order Info: [id number] - SED Performed By: #### L 501.9520, L501.6710, L101.9900, L500.4050, L100.9950, L100.0100 #### [facility] [address] [place], [place], [id number] (703) Absolute Neut 5.0 X10 3/uL Normal 2.0-7.7 [facility] Comment on above: Order Comment: Order Date: 01/30/25 Order Info: 018- - CBCD Order Info: [id number] - RETIC Order Info: [id number] - SED Performed By: #### L 501.9520, L501.6710, L101.9900, L500.4050, L100.9950, L100.0100 #### [facility] [address] [place], [address] Basophils/100 WBC (Bld) 0.7 % Normal 0-1 [facility] Comment on above: Order Comment: Order Date: 01/30/25 Order Info: 018- - CBCD Order Info: [id number] - RETIC Order Info: [id number] - SED Performed By: #### L 501.9520, L501.6710, L101.9900, L500.4050, L100.9950, L100.0100 #### [facility] [address] [place], [address] Eosinophils/100 WBC (Bld) 1.1 % Normal 0-5 [facility] Comment on above: Order Comment: Order Date: 01/30/25 Order Info: [id number] - CBCD Order Info: [id number] - RETIC Order Info: [id number] - SED Performed By: #### L 501.9520, L501.6710, L101.9900, L500.4050, L100.9950, L100.0100 #### [facility] [address] [place], [address] Erythrocyte distribution width (RBC) [Ratio] 13.1 % Normal 11.6-14.6 [facility] Comment on above: Order Comment: Order Date: 01/30/25 Order Info: 018-1 - CBCD Order Info: [id number] - RETIC Order Info: [id number] - SED Performed By: #### L 501.9520, L501.6710, L101.9900, L500.4050, L100.9950, L100.0100 #### [facility] [address] [place], [address] Hematocrit (Bld) [Volume fraction] 33.9 % Low 40-54 [facility] Comment on above: Order Comment: Order Date: 01/30/25 Order Info: 018-1 - CBCD Order Info: [id number] - RETIC Order Info: [id number] - SED Performed By: #### L 501.9520, L501.6710, L101.9900, L500.4050, L100.9950, L100.0100 #### [facility] [address] [place], [address] Hemoglobin (Bld) [Mass/Vol] 11.4 g/dL Low 13.0-16.5 [facility] Comment on above: Order Comment: Order Date: 01/30/25 Order Info: [id number] - CBCD Order Info: [id number] - RETIC Order Info: [id number] - SED Performed By: #### L 501.9520, L501.6710, L101.9900, L500.4050, L100.9950, L100.0100 #### [facility] [address] [place], [address] IG% 0.400 Normal 0.0-0.9 [facility] Comment on above: Order Comment: Order Date: 01/30/25 Order Info: 183- - CBCD Order Info: [id number] - RETIC Order Info: - SED Result Comment: IG% - Immature Granulocytes (promyelocytes, myelocytes and metamyelocytes) > 1% indicates that a LEFT SHIFT is Present. Performed By: #### L 501.9520, L501.6710, L101.9900, L500.4050, L100.9950, L100.0100 #### [facility] [address] [place], [address] Lymphocytes/100 WBC (Bld) 16.8 % Low 19-41 [facility] Comment on above: Order Comment: Order Date: 01/30/25 Order Info: 183-10 - CBCD Order Info: [id number] - RETIC Order Info: [id number] - SED Performed By: #### L 501.9520, L501.6710, L101.9900, L500.4050, L100.9950, L100.0100 #### [facility] [address] [place], [address] MCH (RBC) [Entitic mass] 31.7 pg Normal 27.0-32.0 [facility] Comment on above: Order Comment: Order Date: 01/30/25 Order Info: 183-10 - CBCD Order Info: 4679-7 - RETIC Order Info: [id number] - SED Performed By: #### L 501.9520, L501.6710, L101.9900, L500.4050, L100.9950, L100.0100 #### [facility] [address] [place], [address] MCHC (RBC) [Mass/Vol] 33.6 g/dL Normal 32-[address] [facility] Comment on above: Order Comment: Order Date: 01/30/25 Order Info: 0184-1 - CBCD Order Info: 4679-7 - RETIC Order Info: [id number] - SED Performed By: #### L 501.9520, L501.6710, L101.9900, L500.4050, L100.9950, L100.0100 #### [facility] [address] [place], [address] MCV (RBC) [Entitic vol] 94.2 fL High 80-94 [facility] Comment on above: Order Comment: Order Date: 01/30/25 Order Info: 018-1 - CBCD Order Info: [id number] - RETIC Order Info: [id number] - SED Performed By: #### L 501.9520, L501.6710, L101.9900, L500.4050, L100.9950, L100.0100 #### [facility] [address] [place], [address] Monocytes/100 WBC (Bld) 15.0 % High 0-10 [facility] Comment on above: Order Comment: Order Date: 01/30/25 Order Info: 018-1 - CBCD Order Info: [id number] - RETIC Order Info: [id number] - SED Performed By: #### L 501.9520, L501.6710, L101.9900, L500.4050, L100.9950, L100.0100 #### [facility] [address] [place], [address] Neutrophils/100 WBC (Bld) 66.0 % Normal 47-70 [facility] Comment on above: Order Comment: Order Date: 01/30/25 Order Info: [id number] - CBCD Order Info: [id number] - RETIC Order Info: [id number] - SED Performed By: #### L 501.9520, L501.6710, L101.9900, L500.4050, L100.9950, L100.0100 #### [facility] [address] [place], [address] Nucleated RBC (Bld) [#/Vol] 0 10*3/uL Normal 0-5 [facility] Comment on above: Order Comment: Order Date: 01/30/25 Order Info: [id number] - CBCD Order Info: 4679-7 - RETIC Order Info: [id number] - SED Performed By: #### L 501.9520, L501.6710, L101.9900, L500.4050, L100.9950, L100.0100 #### [facility] [address] [place], [address] Platelet mean volume (Bld) [Entitic vol] 10.5 fL Normal 6.2-12.0 [facility] Comment on above: Order Comment: Order Date: 01/30/25 Order Info: 0184-1 - CBCD Order Info: 4679-7 - RETIC Order Info: [id number] - SED Performed By: #### L 501.9520, L501.6710, L101.9900, L500.4050, L100.9950, L100.0100 #### [facility] [address] [place], [address] Platelets (Bld) [#/Vol] 201 10*3/uL Normal 150-450 [facility] Comment on above: Order Comment: Order Date: 01/30/25 Order Info: 0184-1 - CBCD Order Info: 4679-7 - RETIC Order Info: [id number] - SED Performed By: #### L 501.9520, L501.6710, L101.9900, L500.4050, L100.9950, L100.0100 #### [facility] [address] [place], [address] RBC (Bld) [#/Vol] 3.60 10*6/uL Low 4.6-6.2 [facility] Comment on above: Order Comment: Order Date: 01/30/25 Order Info: [id number] - CBCD Order Info: [id number] - RETIC Order Info: [id number] - SED Performed By: #### L 501.9520, L501.6710, L101.9900, L500.4050, L100.9950, L100.0100 #### [facility] [address] [place], [address] RDW SD 45.1 fl High 35.1-43.9 [facility] Comment on above: Order Comment: Order Date: 01/30/25 Order Info: [id number] - CBCD Order Info: [id number] - RETIC Order Info: [id number] - SED Performed By: #### L 501.9520, L501.6710, L101.9900, L500.4050, L100.9950, L100.0100 #### [facility] [address] [place], [address] WBC (Bld) [#/Vol] 7.6 10*3/uL Normal 4.4-11.0 [facility] Comment on above: Order Comment: Order Date: 01/30/25 Order Info: [id number]- - CBCD Order Info: [id number] - RETIC Order Info: [id number] - SED Performed By: #### L 501.9520, L501.6710, L101.9900, L500.4050, L100.9950, L100.0100 #### [facility] [address] [place], [address] CRPon 01-30-2025 C-REACTIVE PROT 3.84 mg/L High 0.0-3.0 [facility] Comment on above: Order Comment: Order Date: 01/30/25 Order Info: [id number] - CMP Order Info: [id number] - CRP Order Info: [id number] - TSH Performed By: #### L 501.9520, L501.6710, L101.9900, L500.4050, L100.9950, L100.0100 #### [facility] [address] [place], [address] CRP [Mass/Vol]Ordered By: Kwesi Britton on 01-30-2025 C-Reactive Protein Extended Range 3.84 mg/L High 0.0-3.0 [facility] Carbon dioxide, total [Moles /volume] in Central venous bloodOrdered By: Eliu Britton on 01-30-2025 CO2 [Moles/Vol] 22.6 mmol/L 21.0-32.0 [facility] Chloride assayOrdered By: Kwesi Britton on 01-30-2025 Chloride [Moles/Vol] 98 mmol/L 98-108 [facility] Comprehensive Metabolic Prof ilon 01-30-2025 Albumin [Mass/Vol] 4.2 g/dL Normal 3.4-4.8 [facility] Comment on above: Order Comment: Order Date: 01/30/25 Order Info: [id number] - CMP Order Info: [id number] - CRP Order Info: [id number] - TSH Performed By: #### L 501.9520, L501.6710, L101.9900, L500.4050, L100.9950, L100.0100 #### [facility] [address] [place], [address] Albumin/Globulin [Mass ratio] 1.3 {ratio} Normal 0.9-2.4 [facility] Comment on above: Order Comment: Order Date: 01/30/25 Order Info: [id number] - CMP Order Info: [id number] - CRP Order Info: 3013 - TSH Performed By: #### L 501.9520, L501.6710, L101.9900, L500.4050, L100.9950, L100.0100 #### [facility] [address] [place], [address] ALK PHOS 56 U/L Normal 40-129 [facility] Comment on above: Order Comment: Order Date: 01/30/25 Order Info: [id number] - CMP Order Info: - CRP Order Info: [id number] - TSH Performed By: #### L 501.9520, L501.6710, L101.9900, L500.4050, L100.9950, L100.0100 #### [facility] [address] [place], [address] ALT [Catalytic activity/Vol] 21 U/L Normal <=46 [facility] Comment on above: Order Comment: Order Date: 01/30/25 Order Info: [id number] - CMP Order Info: - CRP Order Info: [id number] - TSH Performed By: #### L 501.9520, L501.6710, L101.9900, L500.4050, L100.9950, L100.0100 #### [facility] [address] [place], [place], [address] AST [Catalytic activity/Vol] 48 U/L High <=37 [facility] Comment on above: Order Comment: Order Date: 01/30/25 Order Info: [id number] - CMP Order Info: [id number] - CRP Order Info: [id number] - TSH Performed By: #### L 501.9520, L501.6710, L101.9900, L500.4050, L100.9950, L100.0100 #### [facility] [address] [place], [place], [address] Bilirubin [Mass/Vol] 0.33 mg/dL Normal 0.00-1.30 [facility] Comment on above: Order Comment: Order Date: 01/30/25 Order Info: [id number] - CMP Order Info: [id number] - CRP Order Info: [id number] - TSH Performed By: #### L 501.9520, L501.6710, L101.9900, L500.4050, L100.9950, L100.0100 #### [facility] [address] [place], [address] BUN/CRE 17.2 RATIO Normal 10-20 [facility] Comment on above: Order Comment: Order Date: 01/30/25 Order Info: [id number] - CMP Order Info: [id number] - CRP Order Info: 3 - TSH Performed By: #### L [id number], L501.6710, L101.9900, L500.4050, L100.9950, L100.0100 #### [facility] [address] [place], [address] Calcium [Mass/Vol] 9.8 mg/dL Normal 7.6-11.0 [facility] Comment on above: Order Comment: Order Date: 01/30/25 Order Info: 1 - CMP Order Info: - CRP Order Info: [id number] - TSH Performed By: #### L [id number], L501.6710, L101.9900, L500.4050, L100.9950, L100.0100 #### [facility] [address] [place], [address] Chloride [Moles/Vol] 98 mmol/L Normal 98-108 [facility] Comment on above: Order Comment: Order Date: 01/30/25 Order Info: 1 - CMP Order Info: [id number] - CRP Order Info: 3015-12 - TSH Performed By: #### L [id number], L501.6710, L101.9900, L500.4050, L100.9950, L100.0100 #### [facility] [address] [place], [address] CO2 [Moles/Vol] 22.6 mmol/L Normal 21.0-32.0 [facility] Comment on above: Order Comment: Order Date: 01/30/25 Order Info: 07-1 - CMP Order Info: [id number] - CRP Order Info: 3015-12 - TSH Performed By: #### L [id number], L501.6710, L101.9900, L500.4050, L100.9950, L100.0100 #### [facility] [address] [place], [place], [address] Creatinine [Mass/Vol] 1.37 mg/dL High 0.70-1.[address] [facility] Comment on above: Order Comment: Order Date: 01/30/25 Order Info: [id number] - CMP Order Info: [id number] - CRP Order Info: 3015-12 - TSH Performed By: #### L [id number], L501.6710, L101.9900, L500.4050, L100.9950, L100.0100 #### [facility] [address] [place], [place], [id number] GAP 13 Normal 5-15 [facility] Comment on above: Order Comment: Order Date: 01/30/25 Order Info: [id number] - CMP Order Info: [id number] - CRP Order Info: 3015-12 - TSH Performed By: #### L [id number], L501.6710, L101.9900, L500.4050, L100.9950, L100.0100 #### [facility] [address] [place], [place], [id number] GFR/1.73 sq M.predicted among non-blacks MDRD (S/P/Bld) [Vol rate/Area] 50 mL/min/{1.73_m2} Low >60 [facility] Comment on above: Order Comment: Order Date: 01/30/25 Order Info: [id number] - CMP Order Info: [id number] - CRP Order Info: 3015-12 - TSH Result Comment: mL/m in/1.73m2 CKD-EPI Creatinine Equation (2020) Performed By: #### L [id number], L501.6710, L101.9900, L500.4050, L100.9950, L100.0100 #### [facility] [address] [place], [address] Globulin (S) [Mass/Vol] 3.2 g/dL Normal 2.2-4.2 [facility] Comment on above: Order Comment: Order Date: 01/30/25 Order Info: [id number] - CMP Order Info: [id number] - CRP Order Info: 3015-12 - TSH Performed By: #### L [id number], L501.6710, L101.9900, L500.4050, L100.9950, L100.0100 #### [facility] [address] [place], [address] Glucose [Mass/Vol] 115 mg/dL High 70-99 [facility] Comment on above: Order Comment: Order Date: 01/30/25 Order Info: [id number] - CMP Order Info: - CRP Order Info: [id number] - TSH Performed By: #### L [id number], L501.6710, L101.9900, L500.4050, L100.9950, L100.0100 #### [facility] [address] [place], [address] Potassium [Moles/Vol] 4.4 mmol/L Normal 3.3-5.[address] [facility] Comment on above: Order Comment: Order Date: 01/30/25 Order Info: 07-1 - CMP Order Info: [id number] - CRP Order Info: 3015-12 - TSH Performed By: #### L [id number], L501.6710, L101.9900, L500.4050, L100.9950, L100.0100 #### [facility] [address] [place], [address] Sodium [Moles/Vol] 133 mmol/L Normal 133-145 [facility] Comment on above: Order Comment: Order Date: 01/30/25 Order Info: 07-1 - CMP Order Info: [id number] - CRP Order Info: 3015-12 - TSH Performed By: #### L 501.9520, L501.6710, L101.9900, L500.4050, L100.9950, L100.0100 #### [facility] [address] [place], [place], [address] T PROT 7.3 g/dL Normal 5.9-8.4 [facility] Comment on above: Order Comment: Order Date: 01/30/25 Order Info: [id number] - CMP Order Info: [id number] - CRP Order Info: 3015-12 - TSH Performed By: #### L 501.9520, L501.6710, L101.9900, L500.4050, L100.9950, L100.0100 #### [facility] [address] [place], [place], [id number] Urea nitrogen [Mass/Vol] 24 mg/dL High 4-19 [facility] Comment on above: Order Comment: Order Date: 01/30/25 Order Info: [id number] - CMP Order Info: [id number] - CRP Order Info: 3 - TSH Performed By: #### L [id number], L501.6710, L101.9900, L500.4050, L100.9950, L100.0100 #### [facility] [address] [place], [place], [id number] Eosinophil percentageOrdered By: Eliu Britton on 01-30-2025 Eosinophils/100 WBC (Bld) 1.1 % 0-5 [facility] Erythrocyte Sed Rateon 01-30 SED RATE 31 mm/hr High 0-20 [facility] Comment on above: Order Comment: Order Date: 01/30/25 Order Info: [id number] - CBCD Order Info: [id number] - RETIC Order Info: [id number] - SED Performed By: #### L [id number], L501.6710, L101.9900, L500.4050, L100.9950, L100.0100 #### [facility] [address] [place], [address] Erythrocyte distribution wid th (RBC) [Ratio]Ordered By: Eliu Britton on 01-30-2025 Erythrocyte distribution width (RBC) [Entitic vol] 45.1 fL High 35.1-43.9 [facility] Erythrocyte distribution wid th ratioOrdered By: Eliu Britton on 01-30-2025 Erythrocyte distribution width (RBC) [Ratio] 13.1 % 11.6-14.6 [facility] Erythrocyte distribution wid th standard deviationOrdered By: Eliu Britton on 01-30-2025 Erythrocyte distribution width (RBC) [Ratio] 45.1 fl High 35.1-43.9 [facility] Erythrocyte sedimentation ra teOrdered By: Eliu Britton on 01-30-2025 ESR (Bld) [Velocity] 31 mm/h High 0-20 [facility] GFR/1.73 sq M.predicted alen g non-blacks MDRD (S/P/Bld) [Vol rate/Area]Ordered By: Eliu Britton on 01-30-2025 Estimated GFR (MDRD) Non-Af Amer 50 Low >60 [facility] Comment on above: mL/min/1.73m2 CKD-EP I Creatinine Equation (2020) Glomerular filtration rate ( GFR) estimation/1.73 sq m using serum, plasma, or whole bOrdered By: Eliu Britton on 01-30-2025 GFR/1.73 sq M.predicted among non-blacks MDRD (S/P/Bld) [Vol rate/Area] 50 mL/min/{1.73_m2} Low >60 [facility] Comment on above: mL/min/1.73m2 CKD-EP I Creatinine Equation (2020) Hematocrit Auto (Bld) [Volum e fraction]Ordered By: Eliu Britton on 01-30-2025 Hematocrit (Bld) [Volume fraction] 33.9 % Low 40-54 [facility] Hemoglobin (Reticulocytes) [ Entitic mass]Ordered By: Eliu Britton on 01-30-2025 Reticulocyte Hemoglobin Equivalent 34.1 pg 30-35 [facility] Hemoglobin measurementOrdere d By: Eliu Britton on 01-30-2025 Hemoglobin (Bld) [Mass/Vol] 11.4 g/dL Low 13.0-16.5 [facility] Immature granulocytes/100 WB C Auto (Bld)Ordered By: Eliu Britton on 01-30-2025 Immature granulocytes/100 WBC (Bld) 0.400 % 0.0-0.9 [facility] Comment on above: IG% - Immature Granu locytes (promyelocytes, myelocytes and metamyelocytes) > 1% indicates that a LEFT SHIFT is Present. Immature reticulocyte fracti onOrdered By: Eliu Britton on 01-30-2025 Immature Reticulocyte Fraction 9.20 % 3.00-15.90 [facility] - Chemistry and C hemistry - challengeOrdered By: Eliu Britton on 01-30-2025 AST [Catalytic activity/Vol] 48 U/L High <38 [facility] Lymphocytes Auto (Unsp spec) [#/Vol]Ordered By: Eliu Britton on 01-30-2025 Lymphocytes (Bld) [#/Vol] 1.28 10*3/uL 0.83-4.5 1 [facility] Lymphocytes/100 WBC Auto (Un sp spec)Ordered By: Eliu Britton on 01-30-2025 Lymphocytes/100 WBC (Bld) 16.8 % Low 19-41 [facility] MCV (mean corpuscular volume ) determinationOrdered By: Eliu Britton on 01-30-2025 MCV (RBC) [Entitic vol] 94.2 fL High 80-94 [facility] Mean corpuscular hemoglobin (MCH) determinationOrdered By: Eliu Britton on 01-30-2025 MCH (RBC) [Entitic mass] 31.7 pg 27.0-32.0 [facility] Mean corpuscular hemoglobin concentration (MCHC) determinationOrdered By: Eliu Britton on 01-30-2025 MCHC (RBC) [Mass/Vol] 33.6 g/dL 32-[address] [facility] Mean platelet volume determi nationOrdered By: Eliu Britton on 01-30-2025 Platelet mean volume (Bld) [Entitic vol] 10.5 fL 6.2-12.0 [facility] Monocyte percentageOrdered B y: Eliu Britton on 01-30-2025 Monocytes/100 WBC (Bld) 15.0 % High 0-10 [facility] Neutrophil percentageOrdered By: Eliu Britton on 01-30-2025 Neutrophils/100 WBC (Bld) 66.0 % 47-70 [facility] Nucleated red blood cell per centageOrdered By: Eliu Britton on 01-30-2025 Nucleated RBC/100 WBC (Bld) [Ratio] 0 % 0-5 [facility] Platelet countOrdered By: Kwesi Britton on 01-30-2025 Platelets (Bld) [#/Vol] 201 10*3/uL 150-450 [facility] Potassium (Unsp spec) [Mass/ Vol]Ordered By: Eliu Britton on 01-30-2025 Potassium [Moles/Vol] 4.4 mmol/L 3.3-5.[address] [facility] Potassium measurement (mass/ volume)Ordered By: Eliu Britton on 01-30-2025 Potassium (Unsp spec) [Mass/Vol] 4.4 mmol/L 3.3-5.1 [facility] RBC Auto (Bld) [#/Vol]Ordere d By: Eliu Britton on 01-30-2025 RBC (Bld) [#/Vol] 3.60 10*6/uL Low 4.6-6.2 [facility] Retic Panelon 01-30-2025 IM RET FRACTION 9.20 Normal 3.00-15.90 [facility] Comment on above: Order Comment: Order Date: 01/30/25 Order Info: [id number] - CBCD Order Info: [id number] - RETIC Order Info: [id number] - SED Performed By: #### L [id number], L501.6710, L101.9900, L500.4050, L100.9950, L100.0100 #### [facility] [address] [place], [address] RET-HE 34.1 pg Normal 30-35 [facility] Comment on above: Order Comment: Order Date: 01/30/25 Order Info: [id number] - CBCD Order Info: [id number] - RETIC Order Info: [id number] - SED Performed By: #### L [id number], L501.6710, L101.9900, L500.4050, L100.9950, L100.0100 #### [facility] [address] [place], [place], [address] Retic Count 1.75 High 0.5-1.5 [facility] Comment on above: Order Comment: Order Date: 01/30/25 Order Info: [id number] - CBCD Order Info: [id number] - RETIC Order Info: [id number] - SED Performed By: #### L [id number], L501.6710, L101.9900, L500.4050, L100.9950, L100.0100 #### [facility] [address] [address] [place], [place], [id number] Reticulocyte hemoglobin equi valent (RET-He) measurementOrdered By: Eliu Britton on 01-30-2025 Hemoglobin (Reticulocytes) [Entitic mass] 34.1 pg 30-35 [facility] Reticulocytes Auto (Bld) [#/ Vol]Ordered By: Eliu Britton on 01-30-2025 Reticulocyte Count 1.75 % High 0.5-1.5 [facility] Reticulocytes/100 RBC (Bld) 1.75 % High 0.5-1.5 [facility] Serum creatinine measurement (mass/volume)Ordered By: Eliu Britton on 01-30-2025 Creatinine [Mass/Vol] 1.37 mg/dL High 0.70-1.[address] [facility] Serum globulin measurementOr dered By: Eliu Britton on 01-30-2025 Globulin (S) [Mass/Vol] 3.2 g/dL 2.2-4.2 [facility] Serum glucose measurement (m ass/volume)Ordered By: Eliu Britton on 01-30-2025 Glucose [Mass/Vol] 115 mg/dL High 70-99 [facility] Serum or plasma C reactive p rotein measurement (mass/volume)Ordered By: Eliu Britton on 01-30-2025 CRP [Mass/Vol] 3.84 mg/L High 0.0-3.0 [facility] Serum or plasma alanine sinclair otransferase (ALT) measurementOrdered By: Eliu Britton on 01-30-2025 ALT [Catalytic activity/Vol] 21 U/L <47 [facility] Serum or plasma albumin nia urement (mass/volume)Ordered By: Eliu Britton on 01-30-2025 Albumin [Mass/Vol] 4.2 g/dL 3.4-4.8 [facility] Serum or plasma albumin/glob ulin mass ratioOrdered By: Eliu Britton on 01-30-2025 Albumin/Globulin [Mass ratio] 1.3 {ratio} 0.9-2.4 [facility] Serum or plasma alkaline yao sphatase measurementOrdered By: Eliu Britton on 01-30-2025 ALP [Catalytic activity/Vol] 56 U/L 40-129 [facility] Serum or plasma calcium nia urement (mass/volume)Ordered By: Eliu Britton on 01-30-2025 Calcium [Mass/Vol] 9.8 mg/dL 7.6-11.0 [facility] Serum or plasma urea nitroge n measurement (mass/volume)Ordered By: Eliu Britton on 01-30-2025 Urea nitrogen [Mass/Vol] 24 mg/dL High 4-19 [facility] Sodium levelOrdered By: Eliu Britton on 01-30-2025 Sodium [Moles/Vol] 133 mmol/L 133-145 [facility] TSH DL <= 0.005 mIU/L QnOrde red By: Eliu Britton on 01-30-2025 Thyroid Stimulating Hormone (TSH) 3.170 uIU/mL 0.300-4.200 [facility] TSH Qn 3.170 uIU/mL 0.300-4.200 [facility] Thyroid Stim Hormone (TSH)on 01-30-2025 TSH 3.170 uIU/mL Normal 0.300-4.200 [facility] Comment on above: Order Comment: Order Date: 01/30/25 Order Info: [id number] - CMP Order Info: [id number] - CRP Order Info: [id number] - TSH Performed By: #### L [id number], L501.6710, L101.9900, L500.4050, L100.9950, L100.0100 #### [facility] [address] [place], [address] Total proteinOrdered By: Ariella Britton on 01-30-2025 Protein [Mass/Vol] 7.3 g/dL 5.9-8.4 [facility] White blood cell (WBC) count Ordered By: Eliu Britton on 01-30-2025 WBC (Bld) [#/Vol] 7.6 10*3/uL 4.4-11.0 [facility] Absolute lymphocyte countOrd ered By: Eliu Britton on 12-14-2023 Lymphocytes Auto (Unsp spec) [#/Vol] 1.10 10*3/uL 0.83-4.51 [facility] Automated lymphocyte count a s percentage of total leukocytesOrdered By: Eliu Britton on 12-14-2023 Lymphocytes/100 WBC Auto (Unsp spec) 15.6 % 19-41 [facility] Basophil percentageOrdered B y: Eliu Britton on 12-14-2023 Basophils/100 WBC (Bld) 1.0 % 0-1 [facility] Bilirubin [Mass/Vol] 0.50 mg/dL 0.20-1.00 [facility] Comment on above: For patients on eltr ombopag therapy, use of Dimension [place] TBIL is not recommended. Chloride [Moles/Vol] 99 mmol/L 98-107 [facility] Eosinophils/100 WBC (Bld) 1.3 % 0-5 [facility] Glucose [Mass/Vol] 107 mg/dL 74-106 [facility] Comment on above: Fasting Glucose resu lt from 100 to 125 mg/dL suggests IMPAIRED HOMEOSTASIS per A.D.A. criteria. Hemoglobin (Bld) [Mass/Vol] 11.6 g/dL 13.0-16.5 [facility] Monocytes/100 WBC (Bld) 13.2 % 0-10 [facility] Neutrophils (Bld) [#/Vol] 4.8 10*3/uL 2.0-7.7 [facility] Neutrophils/100 WBC (Bld) 68.5 % 47-70 [facility] Potassium [Moles/Vol] 4.2 mmol/L 3.5-5.[address] [facility] Protein [Mass/Vol] 7.6 g/dL 6.4-8.2 [facility] Sodium [Moles/Vol] 133 mmol/L 136-145 [facility] WBC (Bld) [#/Vol] 7.1 10*3/uL 4.4-11.0 [facility] Determination of erythrocyte mean corpuscular volume (MCV)Ordered By: Eliu Britton on 12-14-2023 MCV (RBC) [Entitic vol] 94.7 fL 80-94 [facility] Erythrocyte distribution wid th ratioOrdered By: Eliu Britton on 12-14-2023 Erythrocyte distribution width (RBC) [Ratio] 13.0 % 11.6-14.6 [facility] Erythrocyte distribution wid th standard deviationOrdered By: Eliu Britton on 12-14-2023 Erythrocyte distribution width (RBC) [Entitic vol] 45.1 fL 35.1-43.9 [facility] Hematocrit Auto (Bld) [Volum e fraction]Ordered By: Eliu Britton on 12-14-2023 Hematocrit (Bld) [Volume fraction] 35.6 % 40-54 [facility] Immature granulocytes/100 WB C Auto (Bld)Ordered By: Eliu Britton on 12-14-2023 Immature granulocytes/100 WBC (Bld) 0.400 % 0.0-0.9 [facility] Comment on above: IG% - Immature Granu locytes (promyelocytes, myelocytes and metamyelocytes) > 1% indicates that a LEFT SHIFT is Present. Laboratory - Chemistry and C hemistry - challengeOrdered By: Eliu Britton on 12-14-2023 Albumin/Globulin [Mass ratio] 0.9 {ratio} 0.9-2.4 [facility] ALP [Catalytic activity/Vol] 63 U/L 45-117 [facility] ALT [Catalytic activity/Vol] 24 U/L 16-61 [facility] CO2 [Moles/Vol] 27.0 mmol/L 21.0-32.0 [facility] Globulin (S) [Mass/Vol] 3.9 g/dL 2.2-4.2 [facility] Urea nitrogen/Creatinine [Mass ratio] 17.6 mg/mg 10-20 [facility] - CoagulationOrde red By: Eliu Britton on 12-14-2023 INR Coag (Bld) [Relative time] 1.9 {INR} [facility] PT Coag (PPP) [Time] 22.1 s 11.7-14.9 [facility] - Hematology and Cell countsOrdered By: Eliu Britton on 12-14-2023 MCH (RBC) [Entitic mass] 30.9 pg 27.0-32.0 [facility] MCHC (RBC) [Mass/Vol] 32.6 g/dL 32-[address] [facility] Nucleated RBC/100 WBC (Bld) [Ratio] 0 % 0-5 [facility] Platelet mean volume (Bld) [Entitic vol] 10.7 fL 6.2-12.0 [facility] Platelets (Bld) [#/Vol] 203 10*3/uL 150-450 [facility] No Panel InformationOrdered By: Eliu Britton on 12-14-2023 Estimated GFR (MDRD) Amer 61 mL/min >60 [facility] Comment on above: GFR Calc Estimated GFR (MDRD) Non-Af Amer 50 mL/min >60 [facility] Comment on above: Non- GFR Calc Prostate Specific Antigen Screen 1.55 ng/mL 0.00-4.00 [facility] Comment on above: This test was perfor med using the TPSA assay method [facility]. Values obtained with differentassay methods cannot be used interchangably.When changing PSA assays in the course of monitoring apatient, additional sequential testing should be carriedout to confirm baseline values. RBC Auto (Bld) [#/Vol]Ordere d By: Eliu Britton on 12-14-2023 RBC (Bld) [#/Vol] 3.76 10*6/uL 4.6-6.2 [facility] Serum or plasma calcium nia urement (mass/volume)Ordered By: Eliu Britton on 12-14-2023 Calcium [Mass/Vol] 9.7 mg/dL 8.5-10.1 [facility] Serum or plasma creatinine m easurement (mass/volume)Ordered By: Eliu Britton on 12-14-2023 Creatinine [Mass/Vol] 1.42 mg/dL 0.70-1.[address] [facility] Comment on above: The validity of the calculated GFR & GFRAA in patients over 70 years has not been determined. Clinical correlation is essential. Serum or plasma urea nitroge n measurement (mass/volume)Ordered By: Eliu Britton on 12-14-2023 Urea nitrogen [Mass/Vol] 25 mg/dL 7-18 [facility] Thin prep Papanicolaou smear with manual screeningOrdered By: Eliu Britton on 12-14-2023 Thin prep Papanicolaou smear with manual screening 3.7 g/dL 3.2-5.0 [facility] Thin prep Papanicolaou smear with manual screening 26 U/L 15-37 [facility] Thin prep Papanicolaou smear with manual screening 7 5-15 [facility] Bilirubin Test strip Ql (U)O rdered By: Eliu Britton on 09-15-2023 Bilirubin Ql (U) Negative Negative [facility] Ketones Test strip Ql (U)Ord ered By: Eliu Britton on 09-15-2023 Ketones Ql (U) Negative Negative [facility] Nitrite Test strip Ql (U)Ord ered By: Eliu Britton on 09-15-2023 Nitrite Ql (U) Negative Negative [facility] No Panel InformationOrdered By: Eliu Britton on 09-15-2023 Urine Microalbumin/Creatinine Ratio 31.8 mg/g CRE <30 [facility] Protein Test strip Ql (U)Ord ered By: Eliu Britton on 09-15-2023 Protein Ql (U) Negative Negative [facility] Thin prep Papanicolaou smear with manual screeningOrdered By: Eliu Britton on 09-15-2023 Thin prep Papanicolaou smear with manual screening 6.6 mg/L NO RANGE EST. [facility] Urine blood detectionOrdered By: Eliu Britton on 09-15-2023 RBC Ql (U) 10 /ul Negative [facility] Urine clarityOrdered By: Ariella Britton on 09-15-2023 Clarity (U) Clear Clear [facility] Urine color determinationOrd ered By: Eliu Britton on 09-15-2023 Color (U) Yellow Yellow [facility] Urine creatinine measurement (mass/volume)Ordered By: Eliu Britton on 09-15-2023 Creatinine (U) [Mass/Vol] 20.70 mg/dL NO RANGE EST. [facility] Urine glucose detectionOrder ed By: Eliu Britton on 09-15-2023 Glucose Ql (U) Normal mg/dl Normal [facility] Urine leukocyte esterase det ection by dipstickOrdered By: Eliu Britton on 09-15-2023 Leukocyte esterase Test strip Ql (U) Negative Negative [facility] Urine pHOrdered By: Eliu cunningham on 09-15-2023 pH (U) 7.0 [pH] 5.0 - 8.0 [facility] Urine specific gravity measu rementOrdered By: Eliu Britton on 09-15-2023 Specific gravity (U) [Rel density] 1.005 1.002-1.030 [facility] Urobilinogen Auto test strip Ql (U)Ordered By: Eliu Britton on 09-15-2023 Urobilinogen Ql (U) Normal mg/dl Normal [facility] Absolute lymphocyte countOrd ered By: Eilu Britton on 08-14-2023 Lymphocytes Auto (Unsp spec) [#/Vol] 1.86 10*3/uL 0.83-4.51 [facility] Basophil percentageOrdered B y: Eliu Britton on 08-14-2023 Basophils/100 WBC (Bld) 0.9 % 0-1 [facility] Bilirubin [Mass/Vol] 0.60 mg/dL 0.20-1.00 [facility] Comment on above: For patients on eltr ombopag therapy, use of Dimension [place] TBIL is not recommended. Chloride [Moles/Vol] 102 mmol/L 98-107 [facility] Cholesterol [Mass/Vol] 104 mg/dL <200 [facility] Comment on above: <200 mg/dL Desirable 200-240 mg/dL Borderline >240 mg/dL High Risk Eosinophils/100 WBC (Bld) 2.4 % 0-5 [facility] Glucose [Mass/Vol] 102 mg/dL 74-106 [facility] Comment on above: Fasting Glucose resu lt from 100 to 125 mg/dL suggests IMPAIRED HOMEOSTASIS per A.D.A. criteria. Neutrophils (Bld) [#/Vol] 4.2 10*3/uL 2.0-7.7 [facility] Neutrophils/100 WBC (Bld) 56.4 % 47-70 [facility] Potassium [Moles/Vol] 4.0 mmol/L 3.5-5.[address] [facility] Protein [Mass/Vol] 7.3 g/dL 6.4-8.2 [facility] Sodium [Moles/Vol] 135 mmol/L 136-145 [facility] Triglyceride [Mass/Vol] 121 mg/dL <199 [facility] Comment on above: The drugs N-Acetylcy steine and Metamizole may falsely depress this assay.Serum Triglycerides Reference Interval Normal <150 mg/dL Borderline high 150 - 199 mg/dL High 200 - 499 mg/dL Very High > or = 500 mg/dL WBC (Bld) [#/Vol] 7.5 10*3/uL 4.4-11.0 [facility] Blood erythrocytes count (nu mber/volume)Ordered By: Eliu Britton on 08-14-2023 RBC (Bld) [#/Vol] 3.78 10*6/uL 4.6-6.2 [facility] Blood hemoglobin measurement (mass/volume)Ordered By: Eliu Britton on 08-14-2023 Hemoglobin (Bld) [Mass/Vol] 11.6 g/dL 13.0-16.5 [facility] Blood lymphocytes/100 leukoc ytesOrdered By: Eliu Britton on 08-14-2023 Lymphocytes/100 WBC (Bld) 24.9 % 19-41 [facility] Blood monocytes/100 leukocyt esOrdered By: Eliu Britton on 08-14-2023 Monocytes/100 WBC (Bld) 15.0 % 0-10 [facility] Blood platelet mean volumeOr dered By: Eliu Britton on 08-14-2023 Platelet mean volume (Bld) [Entitic vol] 10.4 fL 6.2-12.0 [facility] Determination of erythrocyte mean corpuscular volume (MCV)Ordered By: Eliu Britton on 08-14-2023 MCV (RBC) [Entitic vol] 96.0 fL 80-94 [facility] Hematocrit Auto (Bld) [Volum e fraction]Ordered By: Eliu Britton on 08-14-2023 Hematocrit (Bld) [Volume fraction] 36.3 % 40-54 [facility] INR in Blood by Coagulation assayOrdered By: Eliu Britton on 08-14-2023 INR Coag (Bld) [Relative time] 2.0 {INR} [facility] Laboratory - Chemistry and C hemistry - challengeOrdered By: Eliu Britton on 08-14-2023 ALP [Catalytic activity/Vol] 60 U/L 45-117 [facility] ALT [Catalytic activity/Vol] 26 U/L 16-61 [facility] CO2 [Moles/Vol] 26.0 mmol/L 21.0-32.0 [facility] Globulin (S) [Mass/Vol] 3.9 g/dL 2.2-4.2 [facility] Urea nitrogen/Creatinine [Mass ratio] 18.2 mg/mg 10-20 [facility] Laboratory - CoagulationOrde red By: Eliu Britton on 08-14-2023 PT Coag (PPP) [Time] 23.1 s 11.7-14.9 [facility] - Hematology and Cell countsOrdered By: Eliu Britton on 08-14-2023 Erythrocyte distribution width (RBC) [Entitic vol] 47.8 fL 35.1-43.9 [facility] Erythrocyte distribution width (RBC) [Ratio] 13.4 % 11.6-14.6 [facility] Immature granulocytes/100 WBC (Bld) 0.400 % 0.0-0.9 [facility] Comment on above: IG% - Immature Granu locytes (promyelocytes, myelocytes and metamyelocytes) > 1% indicates that a LEFT SHIFT is Present. MCH (RBC) [Entitic mass] 30.7 pg 27.0-32.0 [facility] Nucleated RBC/100 WBC (Bld) [Ratio] 0 % 0-5 [facility] MCHC Auto (RBC) [Mass/Vol]Or dered By: Eliu Britton on 08-14-2023 MCHC (RBC) [Mass/Vol] 32.0 g/dL 32-[address] [facility] No Panel InformationOrdered By: Eliu Britton on 08-14-2023 Estimated GFR (MDRD) Amer 66 mL/min >60 [facility] Comment on above: GFR Calc Estimated GFR (MDRD) Non-Af Amer 55 mL/min >60 [facility] Comment on above: Non- GFR Calc Platelets bldOrdered By: Ariella Britton on 08-14-2023 Platelets (Bld) [#/Vol] 224 10*3/uL 150-450 [facility] Serum or plasma albumin nia urement (mass/volume)Ordered By: Eliu Britton on 08-14-2023 Albumin [Mass/Vol] 3.4 g/dL 3.2-5.0 [facility] Serum or plasma albumin/glob ulin mass ratioOrdered By: Eliu Britton on 08-14-2023 Albumin/Globulin [Mass ratio] 0.9 {ratio} 0.9-2.4 [facility] Serum or plasma calcium nia urement (mass/volume)Ordered By: Eliu Britton on 08-14-2023 Calcium [Mass/Vol] 9.4 mg/dL 8.5-10.1 [facility] Serum or plasma cholesterol in HDL measurement (mass/volume)Ordered By: Eliu Britton on 08-14-2023 Cholesterol in HDL [Mass/Vol] 48 mg/dL >40 [facility] Comment on above: The drugs N-Acetylcy steine and Metamizole may falsely depress this assay. Reference Range HDL <40 mg/dL Low HDL Cholesterol HDL >or= 60 mg/dL High HDL Cholesterol Serum or plasma cholesterol in VLDL measurement (mass/volume)Ordered By: Eliu Britton on 08-14-2023 Cholesterol in VLDL [Mass/Vol] 24 mg/dL 5-40 [facility] Serum or plasma creatinine m easurement (mass/volume)Ordered By: Eliu Britton on 08-14-2023 Creatinine [Mass/Vol] 1.32 mg/dL 0.70-1.[address] [facility] Comment on above: The validity of the calculated GFR & GFRAA in patients over 70 years has not been determined. Clinical correlation is essential. Serum or plasma ferritin mechelle surement (mass/volume)Ordered By: Eliu Britton on 08-14-2023 Ferritin [Mass/Vol] 524 ng/mL 26-388 [facility] Serum or plasma low density lipoprotein (LDL) cholesterol measurement (mass/volume)Ordered By: Eliu Britton on 08-14-2023 Cholesterol in LDL [Mass/Vol] 32 mg/dL 0-130 [facility] Serum or plasma urea nitroge n measurement (mass/volume)Ordered By: Eliu Britton on 08-14-2023 Urea nitrogen [Mass/Vol] 24 mg/dL 7-18 [facility] Thin prep Papanicolaou smear with manual screeningOrdered By: Eliu Britton on 08-14-2023 Thin prep Papanicolaou smear with manual screening 27 U/L 15-37 [facility] Thin prep Papanicolaou smear with manual screening 7 5-15 [facility] CNPNon 03-05-2023 CNPN Telephone ([facility]) ---- JAMAR REED ([id number]) 1935 M Date Time Provider Department 03/05/23 JUSTIN RENEE WS During your visit today, we recorded the following information about you: Kristen Kinney MA 03/05/2023 10:33 AM Signed ----- Message from Justin Renee APRN.RESIDENTIAL MORTGAGE MANAGER sent at 03/05/2023 8:14 AM EDT ----- [...] by mouth once daily. - ELICEO ROOT (LEICEO, ZINGIBER OFFICINALIS,) 550 mg cap Take by [...] at bedtime as needed. FOR INSOMNIA - Inez-3 Fatty Acids 500 mg cap Take by [...] Encounter Status:Closed by KRISTEN KINNEY on 03/05/23 [facility] Kacie 03-04-2023 CNOV Office Visit ([facility]) ---- JAMAR REED ([id number]) 1935 M Date Time Provider Department 03/04/23 2:30 PM [facility] During your visit today, we recorded the following information about you: Temperature Pulse Respiration Blood pressure 98 degrees 75/minute 16/minute 122/60 Weight 92.1 kg Justin Renee APRN.RESIDENTIAL MORTGAGE MANAGER 03/04/2023 2:45 PM Signed Subjective Cough Pertinent [...] PRODUCT Vitamin B12 1000 mcg once daily Inez-3 Fatty Acids 500 mg cap Take by [...] appearance. HENT: (more content not included)... Normal [facility] FLUABV + SARS-CoV-2 Pnl Resp VON+prbon 03-04-2023 Influenza virus A and B RNA and SARS-CoV-2 (COVID-19) N gene panel VON+probe (Resp) COVID 19 RESULT: Detected The method used is RT-PCR or an equivalent NAAT method. Reference Range (the expected result in uninfected individuals): Not detected INFLUENZA A PCR: Not detected INFLUENZA B PCR: Not detected Abnormal [facility] Comment on above: Performed By: #### [id number] #### [facility] CLIA [id number] [address] [place] [address] [place] Basophil percentageOrdered B y: Dr. Britton on 2022 Bilirubin [Mass/Vol] 0.60 mg/dL 0.20-1.00 [facility] Comment on above: For patients on eltr ombopag therapy, use of Dimension [place] TBIL is not recommended. Chloride [Moles/Vol] 102 mmol/L 98-107 [facility] Glucose [Mass/Vol] 112 mg/dL 74-106 [facility] Comment on above: Fasting Glucose resu lt from 100 to 125 mg/dL suggests IMPAIRED HOMEOSTASIS per A.D.A. criteria. Potassium [Moles/Vol] 3.9 mmol/L 3.5-5.[address] [facility] Protein [Mass/Vol] 7.8 g/dL 6.4-8.2 [facility] Sodium [Moles/Vol] 137 mmol/L 136-145 [facility] WBC (Bld) [#/Vol] 7.5 10*3/uL 4.4-11.0 [facility] Blood erythrocytes count (nu mber/volume)Ordered By: Dr. Britton on 2022 RBC (Bld) [#/Vol] 3.69 10*6/uL 4.6-6.2 [facility] Blood hemoglobin measurement (mass/volume)Ordered By: Dr. Britton on 2022 Hemoglobin (Bld) [Mass/Vol] 11.3 g/dL 13.0-16.5 [facility] Blood platelet mean volumeOr dered By: Dr. Britton on 2022 Platelet mean volume (Bld) [Entitic vol] 10.9 fL 6.2-12.0 [facility] Determination of erythrocyte mean corpuscular volume (MCV)Ordered By: Dr. Britton on 2022 MCV (RBC) [Entitic vol] 94.0 fL 80-94 [facility] Hematocrit Auto (Bld) [Volum e fraction]Ordered By: Dr. Britton on 2022 Hematocrit (Bld) [Volume fraction] 34.7 % 40-54 [facility] INR in Blood by Coagulation assayOrdered By: Dr. Britton on 2022 INR Coag (Bld) [Relative time] 2.4 {INR} [facility] Laboratory - Chemistry and C hemistry - challengeOrdered By: Dr. Britton on 2022 ALP [Catalytic activity/Vol] 56 U/L 45-117 [facility] ALT [Catalytic activity/Vol] 30 U/L 16-61 [facility] CO2 [Moles/Vol] 26.0 mmol/L 21.0-32.0 [facility] Globulin (S) [Mass/Vol] 4.1 g/dL 2.2-4.2 [facility] Urea nitrogen/Creatinine [Mass ratio] 14.7 mg/mg 10-20 [facility] Laboratory - CoagulationOrde red By: Dr. Britton on 2022 PT Coag (PPP) [Time] 26.2 s 11.7-14.9 [facility] - Hematology and Cell countsOrdered By: Dr. Britton on 2022 Erythrocyte distribution width (RBC) [Entitic vol] 46.5 fL 35.1-43.9 [facility] Erythrocyte distribution width (RBC) [Ratio] 13.3 % 11.6-14.6 [facility] MCH (RBC) [Entitic mass] 30.6 pg 27.0-32.0 [facility] MCHC Auto (RBC) [Mass/Vol]Or dered By: Dr. Britton on 2022 MCHC (RBC) [Mass/Vol] 32.6 g/dL 32-[address] [facility] No Panel InformationOrdered By: Dr. Britton on 2022 Estimated GFR (MDRD) Amer 57 mL/min >60 [facility] Comment on above: GFR Calc Estimated GFR (MDRD) Non-Af Amer 47 mL/min >60 [facility] Comment on above: Non- GFR Calc Prostate Specific Antigen Screen 2.47 ng/mL 0.00-4.00 [facility] Comment on above: This test was perfor med using the TPSA assay method for [employer] chemistry system. Values obtained with differentassay methods cannot be used interchangably.When changing PSA assays in the course of monitoring apatient, additional sequential testing should be carriedout to confirm baseline values. Vitamin D 25-Hydroxy 45.6 ng/mL [facility] Comment on above: Vitamin D 25(OH) Sta tus Range Deficiency <20 ng/mL (50nmol/L) Insufficiency 20 - 30 ng/mL (50 - 75 nmol/L) Sufficiency 30 - 100 ng/mL (75 - 250 nmol/L) Toxicity >100 ng/mL (>250 nmol/L) Platelets bldOrdered By: Dr. Britton on 2022 Platelets (Bld) [#/Vol] 215 10*3/uL 150-450 [facility] Serum or plasma albumin nia urement (mass/volume)Ordered By: Dr. Britton on 2022 Albumin [Mass/Vol] 3.7 g/dL 3.2-5.0 [facility] Serum or plasma albumin/glob ulin mass ratioOrdered By: Dr. Britton on 2022 Albumin/Globulin [Mass ratio] 0.9 {ratio} 0.9-2.4 [facility] Serum or plasma calcium nia urement (mass/volume)Ordered By: Dr. Britton on 2022 Calcium [Mass/Vol] 9.5 mg/dL 8.5-10.1 [facility] Serum or plasma creatinine m easurement (mass/volume)Ordered By: Dr. Britton on 2022 Creatinine [Mass/Vol] 1.50 mg/dL 0.70-1.[address] [facility] Comment on above: The validity of the calculated GFR & GFRAA in patients over 70 years has not been determined. Clinical correlation is essential. Serum or plasma urea nitroge n measurement (mass/volume)Ordered By: Dr. Britton on 2022 Urea nitrogen [Mass/Vol] 22 mg/dL 7-18 [facility] Thin prep Papanicolaou smear with manual screeningOrdered By: Dr. Britton on 2022 Thin prep Papanicolaou smear with manual screening 30 U/L 15-37 [facility] Thin prep Papanicolaou smear with manual screening 9 5-15 [facility] Absolute lymphocyte counton 05-31-2022 Lymphocytes Auto (Unsp spec) [#/Vol] 1.30 10*3/uL 0.83-4.51 [facility] Work Phone: Basophil percentageon 2021 Basophil percentage 0 SEEN /hpf 0-5 [facility] Work Phone: Basophils/100 WBC (Bld) 0.8 % 0-1 [facility] Work Phone: Bilirubin [Mass/Vol] 0.40 mg/dL 0.20-1.00 [facility] Work Phone: Comment on above: For patients on eltr ombopag therapy, use of Dimension [place] TBIL is not recommended. Chloride [Moles/Vol] 103 mmol/L 98-107 [facility] Work Phone: Eosinophils/100 WBC (Bld) 1.3 % 0-5 [facility] Work Phone: Glucose [Mass/Vol] 107 mg/dL 74-106 [facility] Work Phone: Comment on above: Fasting Glucose resu lt from 100 to 125 mg/dL suggests IMPAIRED HOMEOSTASIS per A.D.A. criteria. Neutrophils (Bld) [#/Vol] 5.0 10*3/uL 2.0-7.7 [facility] Work Phone: Neutrophils/100 WBC (Bld) 65.9 % 47-70 [facility] Work Phone: Potassium [Moles/Vol] 4.2 mmol/L 3.5-5.1 [facility] Work Phone: Protein [Mass/Vol] 7.7 g/dL 6.4-8.2 [facility] Work Phone: [phone] Sodium [Moles/Vol] 137 mmol/L 136-145 [facility] Work Phone: WBC (Bld) [#/Vol] 7.6 10*3/uL 4.4-11.0 [facility] Work Phone: Bilirubin Test strip Ql (U)o n 05-31-2022 Bilirubin Ql (U) Negative Negative [facility] Work Phone: Blood erythrocytes count (nu mber/volume)on 05-31-2022 RBC (Bld) [#/Vol] 3.69 10*6/uL 4.6-6.2 [facility]: Blood hemoglobin measurement (mass/volume)on 05-31-2022 Hemoglobin (Bld) [Mass/Vol] 11.3 g/dL 13.0-16.5 [facility] Work Phone: Blood lymphocytes/100 leukoc yteson 05-31-2022 Lymphocytes/100 WBC (Bld) 17.1 % 19-41 [facility] Work Phone: Blood monocytes/100 leukocyt eson 05-31-2022 Monocytes/100 WBC (Bld) 14.2 % 0-10 [facility] Work Phone: Blood platelet mean volumeon 05-31-2022 Platelet mean volume (Bld) [Entitic vol] 10.0 fL 6.2-12.0 [facility] Work Phone: Determination of erythrocyte mean corpuscular volume (MCV)on 05-31-2022 MCV (RBC) [Entitic vol] 94.6 fL 80-94 [facility] Work Phone: Hematocrit Auto (Bld) [Volum e fraction]on 05-31-2022 Hematocrit (Bld) [Volume fraction] 34.9 % 40-54 [facility] Work Phone: Ketones Test strip Ql (U)on 05-31-2022 Ketones Ql (U) Negative Negative [facility] Work Phone: Laboratory - Chemistry and C hemistry - challengeon 05-31-2022 ALP [Catalytic activity/Vol] 52 U/L 45-117 [facility] Work Phone: ALT [Catalytic activity/Vol] 30 U/L 16-61 [facility] Work Phone: CO2 [Moles/Vol] 26.0 mmol/L 21.0-32.0 [facility] Work Phone: Globulin (S) [Mass/Vol] 4.1 g/dL 2.2-4.2 [facility] Work Phone: Urea nitrogen/Creatinine [Mass ratio] 17.2 mg/mg 10-20 [facility] Work Phone: Laboratory - Hematology and Cell countson 05-31-2022 Erythrocyte distribution width (RBC) [Entitic vol] 45.3 fL 35.1-43.9 [facility] Work Phone: Erythrocyte distribution width (RBC) [Ratio] 13.2 % 11.6-14.6 [facility] Work Phone: Immature granulocytes/100 WBC (Bld) 0.700 % 0.0-0.9 [facility] Work Phone: Comment on above: IG% - Immature Granu locytes (promyelocytes, myelocytes and metamyelocytes) > 1% indicates that a LEFT SHIFT is Present. MCH (RBC) [Entitic mass] 30.6 pg 27.0-32.0 [facility] Work Phone: Nucleated RBC/100 WBC (Bld) [Ratio] 0 % 0-5 [facility] Work Phone: MCHC Auto (RBC) [Mass/Vol]on 05-31-2022 MCHC (RBC) [Mass/Vol] 32.4 g/dL 32-[address] [facility] Work Phone: Mucus LM Ql (Urine sed)on Mucus Ql (Urine sed) 0 SEEN /hpf [facility] Work Phone: Nitrite Test strip Ql (U)on 05-31-2022 Nitrite Ql (U) Negative Negative [facility] Work Phone: No Panel Informationon 05-31 Estimated GFR (MDRD) Amer 65 mL/min >60 [facility] Work Phone: Comment on above: GFR Calc Estimated GFR (MDRD) Non-Af Amer 54 mL/min >60 [facility] Work Phone: Comment on above: Non- GFR Calc Urine Microalbumin/Creatinine Ratio 32.6 mg/g CRE <30 [facility] Work Phone: Platelets bldon 05-31-2022 Platelets (Bld) [#/Vol] 245 10*3/uL 150-450 [facility] Work Phone: Protein Test strip Ql (U)on 05-31-2022 Protein Ql (U) Negative Negative [facility] Work Phone: Serum or plasma albumin nia urement (mass/volume)on 05-31-2022 Albumin [Mass/Vol] 3.6 g/dL 3.2-5.0 [facility] Work Phone: Serum or plasma albumin/glob ulin mass ratioon 05-31-2022 Albumin/Globulin [Mass ratio] 0.9 {ratio} 0.9-2.4 [facility] Work Phone: Serum or plasma calcium nia urement (mass/volume)on 05-31-2022 Calcium [Mass/Vol] 9.1 mg/dL 8.5-10.1 [facility] Work Phone: Serum or plasma creatinine m easurement (mass/volume)on 05-31-2022 Creatinine [Mass/Vol] 1.34 mg/dL 0.70-1.[address] [facility] Work Phone: Comment on above: The validity of the calculated GFR & GFRAA in patients over 70 years has not been determined. Clinical correlation is essential. Serum or plasma urea nitroge n measurement (mass/volume)on 05-31-2022 Urea nitrogen [Mass/Vol] 23 mg/dL 7-18 [facility] Work Phone: Squamous epithelial cells de tection in urine sediment by light microscopyon 05-31-2022 Epithelial cells.squamous LM Ql (Urine sed) 0 SEEN /hpf 0-5 [facility] Work Phone: Thin prep Papanicolaou smear with manual screeningon 05-31-2022 Thin prep Papanicolaou smear with manual screening 28 U/L 15-37 [facility] Work Phone: Thin prep Papanicolaou smear with manual screening 8 5-15 [facility] Work Phone: Thin prep Papanicolaou smear with manual screening 5.1 mg/L NO RANGE EST. [facility] Work Phone: Urine blood detectionon - RBC Ql (U) 10 /ul Negative [facility] Work Phone: RBC Ql (U) 0 SEEN /hpf 0-5 [facility] Work Phone: Urine clarityon 05-31-2022 Clarity (U) Clear Clear [facility] Work Phone: Urine color determinationon 05-31-2022 Color (U) Straw Yellow [facility] Work Phone: Urine creatinine measurement (mass/volume)on 05-31-2022 Creatinine (U) [Mass/Vol] 15.70 mg/dL NO RANGE EST. [facility] Work Phone: Urine glucose detectionon Glucose Ql (U) Normal mg/dl Normal [facility] Work Phone: Urine leukocyte esterase det ection by dipstickon 05-31-2022 Leukocyte esterase Test strip Ql (U) Negative Negative [facility] Work Phone: Urine pHon 05-31-2022 pH (U) 7.0 [pH] 5.0 - 8.0 [facility] Work Phone: Urine sediment bacteria coun t by microscopy (number/high power field)on 05-31-2022 Bacteria LM.HPF (Urine sed) [#/Area] 0 /[HPF] None Seen [facility] Work Phone: Urine specific gravity measu rementon 05-31-2022 Specific gravity (U) [Rel density] 1.005 1.002-1.030 [facility] Work Phone: Urobilinogen Auto test strip Ql (U)on 05-31-2022 Urobilinogen Ql (U) Normal mg/dl Normal [facility] Work Phone: Culture, urineon 02-18-2022 Bacteria identified Cx Nom (U) Culture exhibits no growth. [facility] Work Phone: Basophil percentageon 2021 Chloride [Moles/Vol] 103 mmol/L 98-[address] [facility] Work Phone: Cholesterol [Mass/Vol] 103 mg/dL <200 [facility] Work Phone: Comment on above: <200 mg/dL Desirable 200-240 mg/dL Borderline >240 mg/dL High Risk Glucose [Mass/Vol] 101 mg/dL 74-106 [facility] Work Phone: Comment on above: Fasting Glucose resu lt from 100 to 125 mg/dL suggests IMPAIRED HOMEOSTASIS per A.D.A. criteria.Please note revised GLUCOSE reference range effective 2017. Potassium [Moles/Vol] 4.4 mmol/L 3.5-5.[address] [facility] Work Phone: Sodium [Moles/Vol] 136 mmol/L 136-145 [facility] Work Phone: Triglyceride [Mass/Vol] 94 mg/dL [facility] Work Phone: Comment on above: The drugs N-Acetylcy steine and Metamizole may falsely depress this assay.Serum Triglycerides Reference Interval Normal <150 mg/dL Borderline high 150 - 199 mg/dL High 200 - 499 mg/dL Very High > or = 500 mg/dL WBC (Bld) [#/Vol] 9.2 10*3/uL 4.4-11.0 [facility] Work Phone: Blood erythrocytes count (nu mber/volume)on 10-28-2021 RBC (Bld) [#/Vol] 3.64 10*6/uL 4.6-6.2 [facility] Work Phone: Blood hemoglobin measurement (mass/volume)on 10-28-2021 Hemoglobin (Bld) [Mass/Vol] 11.4 g/dL 13.0-16.5 [facility] Work Phone: Blood platelet mean volumeon 10-28-2021 Platelet mean volume (Bld) [Entitic vol] 10.4 fL 6.2-12.0 [facility] Work Phone: Determination of erythrocyte mean corpuscular volume (MCV)on 10-28-2021 MCV (RBC) [Entitic vol] 93.4 fL 80-94 [facility] Work Phone: Hematocrit Auto (Bld) [Volum e fraction]on 10-28-2021 Hematocrit (Bld) [Volume fraction] 34.0 % 40-54 [facility] Work Phone: Laboratory - Chemistry and C hemistry - challengeon 10-28-2021 CO2 [Moles/Vol] 25.0 mmol/L 21.0-32.0 [facility] Work Phone: Urea nitrogen/Creatinine [Mass ratio] 17.3 mg/mg 10-20 [facility] Work Phone: Laboratory - Hematology and Cell countson 10-28-2021 Erythrocyte distribution width (RBC) [Entitic vol] 46.2 fL 35.1-43.9 [facility] Work Phone: Erythrocyte distribution width (RBC) [Ratio] 13.6 % 11.6-14.6 [facility] Work Phone: MCH (RBC) [Entitic mass] 31.3 pg 27.0-32.0 [facility] Work Phone: MCHC Auto (RBC) [Mass/Vol]on 10-28-2021 MCHC (RBC) [Mass/Vol] 33.5 g/dL 32-[address] [facility] Work Phone: No Panel Informationon 10-28 Estimated GFR (MDRD) Amer 63 mL/min >60 [facility] Work Phone: Comment on above: GFR Calc Estimated GFR (MDRD) Non-Af Amer 52 mL/min >60 [facility] Work Phone: Comment on above: Non- GFR Calc Prostate Specific Antigen Screen 1.57 ng/mL 0.00-4.00 [facility] Work Phone: Comment on above: This test was perfor med using the TPSA assay method for the[employer] chemistry system. Values obtained with differentassay methods cannot be used interchangably.When changing PSA assays in the course of monitoring apatient, additional sequential testing should be carriedout to confirm baseline values. Platelets bldon 10-28-2021 Platelets (Bld) [#/Vol] 222 10*3/uL 150-450 [facility] Work Phone: Serum or plasma calcium nia urement (mass/volume)on 10-28-2021 Calcium [Mass/Vol] 9.4 mg/dL 8.5-10.1 [facility] Work Phone: Serum or plasma cholesterol in HDL measurement (mass/volume)on 10-28-2021 Cholesterol in HDL [Mass/Vol] 50 mg/dL [facility] Work Phone: Comment on above: The drugs N-Acetylcy steine and Metamizole may falsely depress this assay. Reference Range HDL <40 mg/dL Low HDL Cholesterol HDL >or= 60 mg/dL High HDL Cholesterol Serum or plasma cholesterol in VLDL measurement (mass/volume)on 10-28-2021 Cholesterol in VLDL [Mass/Vol] 19 mg/dL 5-40 [facility] Work Phone: Serum or plasma creatinine m easurement (mass/volume)on 10-28-2021 Creatinine [Mass/Vol] 1.39 mg/dL 0.70-1.[address] [facility] Work Phone: Comment on above: The validity of the calculated GFR & GFRAA in patients over 70 years has not been determined. Clinical correlation is essential. Serum or plasma low density lipoprotein (LDL) cholesterol measurement (mass/volume)on 10-28-2021 Cholesterol in LDL [Mass/Vol] 34 mg/dL 0-130 [facility] Work Phone: Serum or plasma urea nitroge n measurement (mass/volume)on 10-28-2021 Urea nitrogen [Mass/Vol] 24 mg/dL 7-18 [facility] Work Phone: Thin prep Papanicolaou smear with manual screeningon 10-28-2021 Thin prep Papanicolaou smear with manual screening 8 5-15 [facility] Work Phone: Culture, urine Bacteria identified Cx Nom (U) Culture exhibits no growth. [facility] Work Phone: Encounters Encounter Date Encounter Type Care Provider Facility Start: 05-14-2025 End: 05-14-[address] Eliu Britton MD Work Phone: -Laboratory Specimen Start: 05-14-2025 End: 05-14-[address] Eliu Britton MD -Laboratory Specimen Work Phone: Start: 05-14-2025 End: 05-14-2025 ambulatory Eliu Britton Facility:[facility] Start: 05-13-2025 Encounter for genera l adult medical examination without abnormal findings Eliu Britton [facility] Start: 05-08-2025 End: 05-08-[address] Eliu Britton MD Work Phone: -Laboratory [facility] Start: 05-08-2025 End: 05-08-[address] Eliu Britton MD -Laboratory [facility] Start: 05-08-2025 End: 05-08-2025 ambulatory Eliu Britton Facility:[facility] Start: 01-30-2025 End: 01-30-[address] Eliu Britton MD Work Phone: [facility] Work Phone: Start: 01-30-2025 End: 01-30-[address] [facility]: 01-30-2025 End: 01-30-2025 ambulatory Eliu Britton Facility:[facility] Start: 12-14-2023 End: 12-14-2023 ambulatory [facility] Work Phone: Start: 12-14-2023 End: 12-14-2023 Patient encounter procedure [facility] Start: 09-15-2023 End: 09-15-2023 ambulatory [facility] Work Phone: Start: 09-15-2023 End: 09-15-2023 Patient encounter procedure [facility] Work Phone: Start: 08-14-2023 End: 08-14-2023 ambulatory [facility] Work Phone: Start: 08-14-2023 End: 08-14-2023 Patient encounter procedure [facility] Work Phone: Start: 03-05-2023 Telephone encounter Justin Reese APRN.RESIDENTIAL MORTGAGE MANAGER Work Phone: [facility] Comment on above: Results Start: 03-04-2023 End: 03-04-2023 ambulatory Facility:[facility] Start: 2022 End: 2022 ambulatory [facility] Work Phone: Start: 2022 End: 2022 Patient encounter procedure [facility]-Laboratory, [place] Start: 05-31-2022 End: 05-31-2022 [facility] Start: 02-18-2022 End: 02-18-2022 Patient encounter procedure [facility]-Laboratory, Spec[facility] Start: 12-24-2021 End: 12-24-2021 Patient encounter procedure [facility]-Radiology, [place] Start: 10-28-2021 End: 10-28-2021 [facility] Procedures Date Procedure Procedure Detail Performing Clinician [...] 06-23-2023 Influenza vaccination INFLUENZA (Sea son Ended) [facility] Start: 10-23-2022 ADVANCE DIRECTIVE DISCUSSION ADVANCE DIRECTIVE DISCUSSION [facility] Start: 10-23-2022 DEPRESSION ASSESSMENT DEPRESSION ASS ESSMENT [facility] Start: 03-09-2020 DIABETES SCREEN DIABETES SCREEN [facility] Start: 10-23-2018 Urine microalbumin profile DTA P,TDAP,TD (2 - Td or Tdap) [facility] Start: 03-14-2018 Hepatitis B surface antibody level LDL CHOLESTEROL [facility] Start: 07-23-2011 PNEUMOCOCCAL: 65+ (2 - PCV) PNEUMOCOCCAL: 65+ (2 - PCV) [facility] Start: 1987 SHINGRIX VACCINE (1 of 2) JEWELL GRIX VACCINE (1 of 2) [facility] Start: [birth year]-28-1938 COVID-19 VACCINE (#1) COVID-19 VACCI NE (#1) [facility] Immunizations Immunization Date Immunization Notes Care Provider Fa cility 07-23-2010 influenza virus vacc ine, unspecified formulation Justin Renee RESIST COATER DEVELOPER.RESIDENTIAL MORTGAGE MANAGER Work Phone: [facility] 07-23-2010 pneumococcal polysaccharide vaccine, 23 valent Justin Renee APRN.RESIDENTIAL MORTGAGE MANAGER Work Phone: [facility] 10-23-2008 tetanus toxoid, redu sammie diphtheria toxoid, and acellular pertussis vaccine, adsorbed Justin Renee APRN.RESIDENTIAL MORTGAGE MANAGER Work Phone: [facility] Payers Date Payer Category Payer Self-pay [id number] 2021 Medicare [employer] MEDICARE A ETNA MEDICARE PPO [id number] 2021-Present [phone] [address] [place] [address] PPO [id number] 2021 Private Health Insurance 101 [id number] 2017 [id number] Unknown [id number] Unknown [id number] Social History Date Type Detail Facility Start: 10-30-2019 End: 10-30-2019 Tobacco smoking status HIIS Unknown if ever smoked [facility] Start: 10-11-2019 None [facility] Start: 10-11-2019 Alone [facility] Start: 10-11-2019 Non-smoker [facility] Start: 1935 Sex Assigned At Male [facility] Start: 10-30-2019 End: 03-04-2023 Tobacco smoking status NHIS Ex-smoker [facility] End: 10-23-1957 History of tobacco use Current smoker [facility] End: 10-23-1957 History of tobacco use Cigarette Smoker [facility] History of tobacco use Pipe Smoker [facility] History of tobacco use Cigar Smoker [facility] Start: 03-04-2023 Cigarettes smoked current (pack per day) - Reported 0.3 [facility] Start: 03-04-2023 Tobacco use and exposure Smokeless tobacco non-user [facility] Start: 03-04-2023 Alcohol intake 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 [facility] Start: 1935 Sex Assigned At Not on file [facility] Start: 02-05-2025 Sex Male (finding) [facility] Note 03-05-2023 Telephone Encounter - Kristen Kniney MA - 03/05/2023 10:35 AM EDTTelephone Encounter - Kristen Kinney MA - 03/05/2023 10:33 AM EDT Note Date & Type Note Facility 03-05-2023 Miscellaneous Notes Formattin g of this note might be different from the original. Pt was notified of the results. Pt verbalized understanding. Kristen Kinney MA ----- Message from Justin Renee APRN.RESIDENTIAL MORTGAGE MANAGER sent at 03/05/2023 8:14 AM EDT ----- [...] discuss this with a provider. Justin Renee APRN.RESIDENTIAL MORTGAGE MANAGER documented in this encounter [facility] Progress note 03-04-2023 Note Date & Type Note Facility 03-04-2023 Note HNO ID: [id number] Author: Justin Renee APRN.RESIDENTIAL MORTGAGE MANAGER Service: ? Author Type: Nurse Practitioner Type: [...] PRODUCT Vitamin B12 1000 mcg once daily Inez-3 Fatty Acids 500 mg cap Take by [...] or posterior oropharyngeal (more content not included)... [facility] History of Past illness Narrative 08-03-2012 Note [...] of this encounter (statuses as of 03/05/2023) [facility] Evaluation note Note Date & Type Note Facility Evaluation note No assessment information availa ble [facility] Work Phone: Reason for referral (narrative) Note Date & Type Note Facility Reason for referral (narrative) No reason for referral information available [facility] Work Phone: Chief Complaint and Reason [...] October 11, 2 019 3:08am Power of Manager Of Applications Development Yes October 11, 2019 3:08am Advance Directive Response Recorded Date/ Time Advance Directives No September 1:02pm Living Will Yes October 11, 2 019 2:08am Power of Manager Of Applications Development Yes October 11, 2019 2:08am Advance Directive [...] or prosecute any alcohol or drug abuse patient.[facility] Reason for Visit (unrecogniz ed section and content) Reason Comments Results (unrecognized sect ion and content) No Status Records FoundNo Status Records Found INFORMATION SOURCE (unrecogn ized section and content) DATE CREATED AUTHOR 03/05/2023 [facility] DATE CREATED AUTHOR AUTHOR'S ORGANIZ ATION 05/22/2025 [facility] FOR RECORDS PERTAINING TO PATIENTS WHO ARE [...] BE BASED ON THE PRIMARY CLINICAL RECORDS. [facility] [employer] [facility]. provides no warranty or guarantee of the accuracy or completeness of information in this document.
== END | disposition home or self-care (01) ==
LOC: MTRAD 10:27
PROVIDERS: PCP Family Medicine; Referring Provider Family Medicine; Visit Provider Family Medicine
DX: M67.40 Ganglion, unspecified site (principal)
CPT/HCPCS: 73000